=== PATIENT | male | born 1955 | race Caucasian/White ===

== ENCOUNTER 2019-03-13 08:30 | Inpatient (IN) | payer MEDICAID, OTHER, SELFPAY ==
[2019-03-13] VITALS (26 sets, daily range): BP systolic 96–137; BP diastolic 70–87; O2SAT 96
[~2019-03-13] VITALS: Ht 170.2 cm; Wt 60.9 kg
[2019-03-13] MEDS ORDERED: PRED20TA PO (08:36)
[2019-03-13] MEDS ORDERED: ALBU8.5H INH (08:37)
[2019-03-13] MEDS ORDERED: DOXY100T27 PO (08:37)
[2019-03-13 09:10] LABS: BASO % 0.1 % (0.0-1.0); EOS % 0.1 % (0.0-3.0); HEMATOCRIT 50.9 % (42.0-52.0); HEMOGLOBIN 16.2 g/dl (13.5-17.5); LYMPH # 1.4 10^3/uL (1.5-5.0); LYMPH % 9.6 % (24.0-44.0); MEAN CORPUSCULAR HEMOGLOBIN 32.3 pg (27.0-33.0); MEAN CORPUSCULAR HGB CONC 31.8 g/dl (32.0-36.5); MEAN CORPUSCULAR VOLUME 101.6 fl (80.0-96.0); MONO # 0.9 10^3/uL (0.0-0.8); MONO % 6.3 % (0.0-5.0); NEUTROPHILS # 12.3 10^3/uL (1.5-8.5); NEUTROPHILS % 83.5 % (36.0-66.0); PLATELET COUNT, AUTOMATED 139 10^3/uL (150-450); RED BLOOD COUNT 5.01 10^6/uL (4.30-6.10); WHITE BLOOD COUNT 14.7 10^3/uL (4.0-10.0)
--- NOTE | 2019-03-13 09:53 | REP ---
Clinical: Shortness of breath. Technique: Portable semiupright view. Comparison: None. Findings: Moderate/large right pleural effusion with underlying right lower lobe atelectasis. No further abnormality appreciated. No pneumothorax. Cardiomegaly cannot be excluded. Skeletal structures demonstrate degenerative changes and evidence for right rib fractures of indeterminate age. Impression: 1. Moderate/large right pleural effusion with underlying right lower lobe atelectasis. 2. Multiple nondisplaced right rib fractures of indeterminate age. Electronically Signed by Regino Canela MD 03/13/2019 09:46 A
[2019-03-13] MEDS ORDERED: diltiaZEM 125 MG in NS 100 ML IV SCH (10:30)
[2019-03-13 10:31] LABS: ALBUMIN 2.6 GM/DL (3.2-5.2); ALT/SGPT 143 U/L (12-78); BILIRUBIN,DIRECT 0.7 MG/DL (0.0-0.2); BILIRUBIN,TOTAL 1.6 MG/DL (0.2-1.0); BLOOD UREA NITROGEN 36 MG/DL (7-18); CALCIUM LEVEL 8.9 MG/DL (8.8-10.2); CARBON DIOXIDE LEVEL 25 MEQ/L (21-32); CHLORIDE LEVEL 102 MEQ/L (98-107); CK-MB VALUE MASS 4.7 NG/ML (<3.6); CPK CREATINE PHOSPHOKINASE 64 U/L (39-308); CREATININE FOR GFR 1.18 MG/DL (0.70-1.30); GLOMERULAR FILTRATION RATE > 60.0 (>49); GLUCOSE, FASTING 102 MG/DL (70-100); MB/CK RELATIVE INDEX 7.34 (< OR =4); NT-PRO BNP 7036 PG/ML (<125); POTASSIUM SERUM 4.3 MEQ/L (3.5-5.1); SODIUM LEVEL 141 MEQ/L (136-145); TOTAL PROTEIN 6.3 GM/DL (6.4-8.2); TROPONIN I 0.07 NG/ML (< 0.10)
[2019-03-13 10:52] LABS: INR 1.39; PARTIAL THROMBOPLASTIN TIME 28.1 SECONDS (25.0-38.4); PROTHROMBIN TIME 16.8 SECONDS (11.8-14.0)
[2019-03-13] MEDS ORDERED: ISOVUE-370 76% 100ML VIAL (Q9967) As Ordered ONE (11:36)
--- NOTE | 2019-03-13 12:20 | REP ---
Clinical: Shortness of breath and hemoptysis . Technique: Axial contrast enhanced images from the thoracic inlet to the upper abdomen using 75 ml Isovue 370 intravenous contrast material with multiplanar re-formations. Findings: Satisfactory enhancement of the pulmonary vasculature is achieved. Acute thrombus is identified in the left main pulmonary artery with extension into the left upper lobe and lingular pulmonary arteries. Thrombus is also suggested within the central right upper lobe pulmonary artery and within second order branches of the right lower lobe pulmonary artery. Large right pleural effusion is identified with near complete collapse to the right lower lobe, partial collapse to the right middle lobe, and atelectasis along with patchy infiltrates involving the right upper lobe. A small left pleural effusion is identified with subtle left basilar atelectasis. Cardiomegaly noted along with atherosclerotic changes to the thoracic aorta and coronary arteries. Impression: 1. Significant bilateral pulmonary emboli as detailed above. 2. Large right pleural effusion and small left pleural effusion along with elements of partial collapse, ground-glass infiltrates, and atelectasis. 3. Cardiomegaly. Electronically Signed by Regino Canela MD 03/13/2019 12:12 P
[2019-03-13] MEDS ORDERED: HEPARIN DRIP 25,000 UNITS in IV 1 EA IV SCH ×2 (12:35→19:43)
[2019-03-13] MEDS ORDERED: HEPARIN SOD (PORCINE) 5000 UNITS/ML VIAL IV ONE (12:45)
[2019-03-13] MEDS ORDERED: FUROSEMIDE 40 MG/4 ML VIAL (J1940) IV SCH (13:45)
[2019-03-13] MEDS ORDERED: MIDAZOLAM INJ 2 MG/2 ML VIAL (J2250) As Ordered ONE ×2 (13:52→13:53)
[2019-03-13] MEDS ORDERED: LIDOCAINE 1% MDV 20ML VIAL As Ordered ONE (13:53)
[2019-03-13] MEDS ORDERED: ACETAMINOPHEN TAB 650MG DOSE (2X325MG) PO PRN (14:00)
[2019-03-13] MEDS ORDERED: ONDANSETRON 4MG/2ML VIAL (J2405) IV PRN (14:00)
[2019-03-13] MEDS ORDERED: LEVALBUTEROL 1.25 MG/0.5 ML CONCENTRATE NEB NEB PRN (14:00)
[2019-03-13] MEDS: LEVALBUTEROL 1.25 MG/0.5 ML CONCENTRATE NEB NEB SCH ×2 (14:00→19:53)
[2019-03-13] MEDS ORDERED: NORCO, ANEXSIA 5/325MG TABLET (HYDROcodone/ACETAMINOPHEN) PO PRN (14:00)
[2019-03-13] MEDS ORDERED: BISACODYL 10 MG SUPP PR PRN (14:00)
[2019-03-13] MEDS ORDERED: PERCOCET 5MG/325MG TAB PO PRN (14:00)
[2019-03-13] MEDS: diltiaZEM 125 MG in NS 100 ML IV SCH ×2 (14:30→23:10)
[2019-03-13] MEDS ORDERED: MIDAZOLAM INJ 2 MG/2 ML VIAL (J2250) IV ONE (14:45)
[2019-03-13] MEDS ORDERED: LIDOCAINE 1% MDV 20ML VIAL SC ONE (14:45)
[2019-03-13 14:51] LABS: ABG BASE EXCESS -2.4 (-2.0-2.0); ABG HCO3 22.3 MEQ/L (22.0-26.0); ABG O2 SATURATION 98.2 % (95.0-99.0); ABG PARTIAL PRESSURE CO2 38.5 mmHg (35.0-45.0); ABG PARTIAL PRESSURE O2 118.8 mmHg (75.0-100.0); ABG STANDARD HCO3 22.5 MEQ/L (22.0-26.0); ABG TOTAL CO2 23.5 MEQ/L (23.0-31.0); ABG pH (ARTERIAL) 7.381 UNITS (7.350-7.450)
--- NOTE | 2019-03-13 14:58 | HPEPDOC ---
General Date of Admission Mar 13, 2019 at 13:33 Date of Service: Mar 13, 2019 Chief Complaint The patient is a 63-year-old male admitted with a reason for visit of Atrial Flutter With Rapid Ventricular Response. Source: Patient Exam Limitations: No limitations Associated Symptoms: Shortness of breath History of Present Illness Patient is 63 years old male without significant past medical history presented hospital with increased shortness of breath. Patient stated that in February he has been treated with doxycycline and prednisone for pneumonia. However for past few days has increased shortness of breath and has leg swelling. In emergency room patient was found to have on CTA significant bilateral pulmonary emboli, large right pleural effusion and small left pleural effusion along with elements of partial collapse, ground-glass infiltrates, atelectasis, cardiomegaly. CBC significant for leukocytosis of 14.7, BNP 7036, elevated transaminases, tachycardia and dyspnea. Diltiazem and heparin drip started in ER. Home Medications Scheduled PRN Albuterol Sulfate (Albuterol Sulfate Hfa) 8.5 Gm Hfa.aer.ad, 2 PUFF INH QID PRN for SOB/COUGH, (Reported) Allergies Coded Allergies: No Known Drug Allergies (Verified Allergy, Unknown, 03/13/19) Past Medical History Surgical History Appendectomy in childhood Family History Mother from breast cancer Social History * Smoker: current smoker Alcohol: heavy Drugs: denies A-FIB/CHADSVASC A-FIB History Current/History of A-Fib/PAF?: No Current PO Anticoag Therapy: No Review of Systems Constitutional: Reports: Weakness, Fatigue; Denies: Chills, Fever Eyes: Denies: Pain, Vision change ENT: Denies: Head Aches Skin: Denies: Rash, Lesions Pulmonary: Reports: Dyspnea Cardiovascular: Reports: Palpitations, Orthopnea, Edema Gastrointestinal: Denies: Nausea, Vomiting Genitourinary: Denies: Dysuria, Frequency Hematologic: Denies: Bruising, Bleeding Excessively Endocrine: Denies: Polydipsia, Polyphagia Musculoskeletal: Denies: Neck Pain, Back Pain Neurological: Denies: Weakness, Numbness Psych: Reports: Mood Normal Physical Examination General Exam: Positive: Alert, Cooperative Eye Exam: Positive: PERRLA ENT Exam: Positive: Atraumatic; Negative: Mucous membr. moist/pink (mucous membrane dry) Neck Exam: Positive: Supple, JVD Chest Exam: Positive: Rhonchi, Diminished Heart Exam: Positive: Tachycardic Telemetry: Positive: Tachycardia Abdomen Exam: Positive: Normal bowel sounds Extremity Exam: Positive: Clubbing; Negative: Cyanosis Skin Exam: Positive: Nl turgor and temperature Neuro Exam: Positive: Normal Gait, Strength at 5/5 X4 ext, Cranial Nerves 3-12 NL Psych Exam: Positive: Mental status NL Vital Signs Vital Signs Date Time Temp Pulse Resp B/P (MAP) Pulse Ox O2 Delivery O2 Flow Rate FiO2 03/13/19 13:44 156 20 98 Nasal Cannula 2.0 03/13/19 11:55 136/93 (107) 03/13/19 08:30 98.0 Laboratory Data Labs 24H Laboratory Tests 2 03/13/19 08:52: Immature Granulocyte % (Auto) 0.4, Neutrophils (%) (Auto) 83.5H, Lymphocytes (%) (Auto) 9.6L, Monocytes (%) (Auto) 6.3H, Eosinophils (%) (Auto) 0.1, Basophils (%) (Auto) 0.1, Neutrophils # (Auto) 12.3H, Lymphocytes # (Auto) 1.4L, Monocytes # (Auto) 0.9H, Eosinophils # (Auto) 0.0, Basophils # (Auto) 0.0, Nucleated Red Blood Cells % (auto) 0.0 03/13/19 09:38: Prothrombin Time 16.8H, Prothromb Time International Ratio 1.39, Activated Partial Thromboplast Time 28.1, Anion Gap 14, Glomerular Filtration Rate > 60.0, Calcium Level 8.9, Total Bilirubin 1.6H, Direct Bilirubin 0.7H, Aspartate Amino Transf (AST/SGOT) 157H, Alanine Aminotransferase (ALT/SGPT) 143H, Alkaline Phosphatase 133H, Total Creatine Kinase 64, Creatine Kinase MB 4.7H, Creatine Kinase MB Relative Index 7.34H, Troponin I 0.07, HU-Pbo-X-Type Natriuretic Peptide 7036H, Total Protein 6.3L, Albumin 2.6L, Albumin/Globulin Ratio 0.70L CBC/BMP Laboratory Tests 03/13/19 08:52 03/13/19 09:38 Assessment/Plan Patient is 63 years old male without significant past medical history presented hospital with increased shortness of breath. Patient stated that in February he has been treated with doxycycline and prednisone for pneumonia. However for past few days has increased shortness of breath and has leg swelling. In emergency room patient was found to have on CTA significant bilateral pulmonary emboli, large right pleural effusion and small left pleural effusion along with elements of partial collapse, ground-glass infiltrates, atelectasis, cardiomegaly. Problems (1) Sepsis Status: Acute Problem Text: Patient has leukocytosis, tachycardia and dyspnea Patient has recently had pneumonia On presentation he has large right pleural effusion and small left pleural effusion along with elements of partial collapse, ground-glass infiltrates, and atelectasis I started broad-spectrum antibiotics vancomycin and Zosyn Chest tube will be placed by Dr. Tran Blood culture, pleural fluid culture (2) Atrial flutter with rapid ventricular response Status: Acute Problem Text: Secondary to pulmonary emboli Diltiazem drip now ECHo Monitor troponins (3) Pulmonary embolism Status: Acute Problem Text: Unprovoked pulmonary emboli Heparin drip, will start Xarelto tomorrow There is concern for underlying malignancy We'll proceed with CT scan of abdomen and pelvis given history of active smoking (4) Alcohol abuse Status: Chronic Problem Text: [facility] protocol Social service on board Plan / VTE VTE Prophylaxis Ordered?: Yes JONAH ALFARO DO Mar 13, 2019 14:58
[2019-03-13] MEDS ORDERED: LORazepam 2 MG TAB PO PRN (15:00)
[2019-03-13] MEDS ORDERED: NS 1,000 ML IV SCH (15:00)
--- NOTE | 2019-03-13 15:26 | REP ---
CHEST, SINGLE VIEW: Single view of the chest is performed and compared to a prior exam the same day. There has been placement of a right chest tube inferiorly. There is significant improvement of right pleural effusion with mild residual. There is mild atelectasis/infiltrate in the right lower lung zone. There is no pneumothorax. The left lung remains clear. There is cardiomegaly with mild calcification of the thoracic aorta. Electronically Signed by Olman Vallejo MD 03/13/2019 04:00 P
[2019-03-13 15:28] LABS: PH BODY FLUID 7.697 UNITS (NOT ESTABLISHED); SOURCE, BODY FLUID pH PLEURAL
--- NOTE | 2019-03-13 15:40 | CR ---
DATE OF CONSULTATION: 03/13/2019 The patient is seen at the request of Dr. Caldera of the emergency room for a pleural effusion and bilateral pulmonary emboli with some shortness of breath. HISTORY OF PRESENT ILLNESS: The patient is a 63-year-old white male who started to notice increasing shortness of breath approximately 7 to 10 days ago. It has gradually come on. He says that for the last 2 days he has been very short of breath, hardly able to get up from the couch and use the bathroom. He has had orthopnea these last 2 days, having difficulty lying flat and waking up short of breath. He has noticed that his legs have been swelling over the last 3 days. He notes a cough that again started about 10 days ago but was not productive until about 2 days ago when he started to develop hemoptysis with uniform globs of blood being expectorated. He has no chest pain or chest pain discomfort. He has no fever, chills or sweats. He has no rigor. There is no difficulty swallowing and he states that he has been eating and certainly drinking. He drinks about a half to a pint of vodka a day. He also states that he has lost weight, although he does not know how much. PAST MEDICAL HISTORY: Does not see a primary care physician. He states that he has no other medical problems. PAST SURGERIES: He has had an appendectomy and two plates in his heels after a remote trauma. ALLERGIES: None. HABITS: Smokes one pack per day of Pall Mall. He has the above alcohol history of one half to one pink per day of vodka. No illicit drugs. TRAVEL HISTORY: He is unclear to me where he has actually traveled but nothing outside the [place]. I do not get a positive travel history to the [facility] or [facility]. EXPOSURES: No dogs, birds or cats at home. 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 He does not know if he has been exposed to asbestos. He is now retired. FAMILY HISTORY: Not pertinent to the acute situation. REVIEW OF SYSTEMS: CONSTITUTIONAL: See history of present illness. EYES: Wears glasses. Without diplopia. Without amaurosis fugax. Without prior jaundice. NOSE: Without epistaxis. MOUTH: Has his own teeth, many of which are missing. RESPIRATORY: See history of present illness. CARDIAC: Denies palpitations or tachycardia that he is aware of. Without prior myocardial infarctions. GASTROINTESTINAL: Without nausea, vomiting, diarrhea, constipation, melena, hematochezia or abdominal pain. GENITOURINARY: Without hematuria or dysuria. NEUROLOGIC: Without paresthesias, paralyses or prior seizures. Without prior CVA. ENDOCRINE: Without diabetes. Without thyroid disease. PSYCHIATRIC: Without pathological anxiety, psychosis or depression. PHYSICAL EXAMINATION: Well developed, cachectic, white male who is short of breath even talking. VITAL SIGNS: Temperature 98.0, heart rate 154 and in atrial flutter with a respiratory rate that is 22. Without the use of accessory muscles. He is 100% saturated on 2 liters nasal cannula. Blood pressure 136/93. HEAD: Normocephalic. EYES: Pupils are equal and reactive to light. Extraocular muscles are intact. Sclerae nonicteric. NOSE: Without deformity. MOUTH: Has his own teeth, many of which are missing. Mucous membranes are pink and moist. Lips and commissures without lesions. There is no thrush. NECK: Supple. There is no jugular venous distention (JVD). No subcutaneous emphysema. Trachea is midline. There are no carotid bruits. There are 2+ carotid upstrokes. There is no thyromegaly. LUNGS: Marked decreased breath sounds at the right base with E-to-A egophony. Left percussion note is full to the diaphragm. The lung sounds are diminished on the right side in the lower hemithorax. I hear some rhonchi on the left side. CARDIAC: Shows a tachycardia. I do not appreciate murmurs, clicks, gallops or rubs. I cannot feel his point of maximum impulse (PMI). S1, S2 are normal. ABDOMEN: Soft, nontender. Bowel sounds positive. There is no hepatosplenomegaly. No costovertebral angle tenderness. EXTREMITIES: 3 to 4+ pretibial edema. No calf tenderness. Skin is warm and dry but with some mottling of the knees. Fingers are clubbed. Fingers also have yellow staining consistent with cigarette use. NEUROLOGIC: Shows II through XII intact. Gross motor and gross sensation is intact. Gait is not tested. PSYCHIATRIC: Shows him to be awake and alert, oriented times three with appropriate mood and affect and conversational. INVESTIGATIONS: His white count is 14.7 with a hemoglobin and hematocrit of 16.2 and 50.9 with a platelet count of 139. Differential shows 83% neutrophils, 9% lymphocytes and 6% monocytes. There are no immature forms and no toxic granulations. His electrolytes are normal with a BUN and creatinine of 36 and 1.18 with a calcium of 8.9. AST and ALT are 157 and 143, respectively. Albumin is 2.6. His PT/INR are 16.8 and 1.39 with a PTT of 28 seconds, this is prior to starting heparin. Chest x-ray shows opacity in the right lower hemithorax with the meniscus consistent with a pleural effusion. His chest CT done with angiographic protocol shows multiple pulmonary emboli. Emboli are both on the right and left side with the right upper lobe being occluded and numerous clots in the left upper lobe lingula pleural vessels and in the left lower lobe. The right side also shows clot again at the right upper lobe and numerous peripheral clots in the right lower lobe. I also see a clot in the vena cava. The pleural effusion is confirmed with right lower lobe lung compression. There is an infiltrative process in the medial portion of the upper lobe in the apical segment. I cannot tell if this is a heterogenous tumor or even lung infarction with consolidation. His left adrenal is quite generous but looks to have normal configuration. I do not see his right adrenal clearly. The liver does not look to have any lesions. There is no pericardial effusion. I do not see appreciable mediastinal lymphadenopathy. IMPRESSION: 1. Bilateral pulmonary emboli. 2. Probable bilateral deep vein thromboses on the right and left side. 3. Atrial flutter with rapid ventricular response. 4. Pleural effusion. 5. Probable dehydration with increase in hematocrit and BUN. 6. Alcohol abuse. 7. Tobacco abuse. PLAN/DISCUSSION: I have discussed the case both with Dr. Caldera and later on with Dr. Diaz. I would recommend that we fully heparinize him now and put him on a heparin drip. We can convert that to Xarelto or Xarelto-like medication tomorrow. I will place a chest tube. I would IV hydrate him. I would also cover him with Serax for potential alcohol withdrawal. I will send the fluid off for all the requisite cytologies, hematologies, chemistries and bacteriologies. I suspect that there is probably about 1.5 to 2 liters in his chest just from the chest CT.
--- NOTE | 2019-03-13 15:42 | ECGEPIP ---
[facility] - ED Test Date: 2019-03-13 Pat Name: JANE BOONE Department: Room: - Gender: Male Government Affairs Fellow: sandra mathews : 1955 Requested By: CELINA Lucas Order Number: [id number] Reading MD: Myrtle Farias Measurements Intervals [place] Rate: 162 P: UT: 0 QRS: 109 QRSD: 90 T: -84 QT: 275 QTc: 452 Interpretive Statements PROBABLE ATRIAL FLUTTER WITH RAPID VENTRICULAR RESPONSE MARKED RIGHT AXIS DEVIATION POSSIBLE RIGHT VENTRICULAR CONDUCTION DELAY NONSPECIFIC ST & T-WAVE ABNORMALITY No prior Electronically Signed on 03-13-2019 15:42:04 EST by Myrtle Farias
[2019-03-13 15:48] LABS: AMYLASE, BODY FLUID 86 U/L (NOT ESTABLISHED); CHOLESTEROL, BODY FLUID < 50 MG/DL (NOT ESTABLISHED); LDH, BODY FLUID 303 U/L (NOT ESTABLISHED); SOURCE, BODY FLUID ALBUMIN PLEURAL; SOURCE, BODY FLUID AMYLASE PLEURAL; SOURCE, BODY FLUID CHOL PLEURAL; SOURCE, BODY FLUID GLUCOSE PLEURAL; SOURCE, BODY FLUID LDH PLEURAL; SOURCE, BODY FLUID TOT PROTEIN PLEURAL; SOURCE, BODY FLUID TRIG PLEURAL; TOTAL PROTEIN, BODY FLUID 2.2 G/DL (NOT ESTABLISHED); TRIGLYCERIDE, BODY FLUID 30 MG/DL (NOT ESTABLISHED)
[2019-03-13 15:49] LABS: LDH LACTATE DEHYDROGENASE 331 U/L (87-241)
[2019-03-13 15:56] LABS: MAGNESIUM LEVEL 1.8 MG/DL (1.8-2.4); TROPONIN I 0.08 NG/ML (< 0.10)
[2019-03-13 15:56] LABS: APPEARANCE, BODY FLUID HAZY (CLEAR); PLEURAL FL COLOR YELLOW (COLORLESS); SOURCE, BODY FLUID PLEURAL
--- NOTE | 2019-03-13 15:59 | REP ---
BILATERAL LOWER EXTREMITY DUPLEX DOPPLER VENOUS ULTRASOUND: Real-time compression and duplex Doppler interrogation of the bilateral lower extremity deep vein systems is performed. Non-occlusive thrombus is seen in the right profunda vein and in one of duplicated right femoral veins, as well as in the right popliteal vein. No thrombus is seen in either common femoral vein, nor in the left femoral vein or popliteal vein. IMPRESSION: Non-occlusive deep vein thrombosis in one of the duplicated right femoral veins and in the right popliteal vein. There is also nonocclusive thrombus in the right profunda vein. No deep vein thrombosis left lower extremity. Electronically Signed by Olman Vallejo MD 03/13/2019 04:01 P
[2019-03-13] MEDS ORDERED: THIAMINE 100 MG TAB PO ONE (16:00)
[2019-03-13 16:30] LABS: INFLUENZA A AMPLIFICATION NEGATIVE (NEGATIVE); INFLUENZA B AMPLIFICATION NEGATIVE (NEGATIVE)
[2019-03-13] MEDS: MULTIVITAMINS/MINERALS THERAP 1 TAB PO SCH (16:54)
[2019-03-13] MEDS: FOLIC ACID 1 MG TAB PO SCH (16:54)
[2019-03-13] MEDS: PIPERACILLIN/TAZOBACTAM SOD 3.375 GM in D5W MINI-BAG PLUS 50 ML IV SCH ×2 (16:55→21:19)
[2019-03-13] MEDS: D5W/0.9% SODIUM CHLORIDE 1,000 ML IV SCH (16:55)
[2019-03-13] MEDS ORDERED: VANCOMYCIN HCL 500 MG in D5W MINI-BAG PLUS 100 ML IV ONE (17:00)
[2019-03-13] MEDS ORDERED: VANCOMYCIN HCL 750 MG, VIAL MATE ADAPTER 1 EACH in D5W 250 ML IV ONE (18:00)
--- NOTE | 2019-03-13 19:21 | PHACANCOPD ---
PHARMACY VANCOMYCIN DOSING Pt Demographics Demographics Patient Age:63 , Weight:64.700 , Gender: male Adjusted Body Weight Date: 03/13/19, Adjusted Body Weight: [64.7] Kg Events Past 24 Hours Events Past 24 Hours: NO: Dialysis, Diuretic Therapy, Change in CrCl, Fever, Elevation in WBC, Pending Diagnostics, Pending Procedures, Other Vancomycin Vancomycin indication: SEPSIS Vancomycin Target Ranges: 15-20 mcg/ml Vancomycin Load Y/N: Yes Load Dose Date Time Vancomycin Load Dose: 1.25G Date: 03/13/19 Time:17:00 Vancomycin Dose Date: 03/13/19. Current Vancomycin Dose: [1G IV Q12H] Intermittent Dosing?: No Labs Labs Item Value Date Time White Blood Count 14.7 10^3/uL H 03/13/19 0852 Creatinine 1.18 MG/DL 03/13/19 0938 Neutrophils # (Auto) 12.3 10^3/uL H 03/13/19 0852 Micro Microbiology 03/13/19 Blood Culture, Received Pending 03/13/19 Gram Stain, Received Pending 03/13/19 Sputum Culture, Received Pending 03/13/19 Blood Culture, Received Pending 03/13/19 Acid Fast Stain, Received Pending 03/13/19 Mycobacterial Culture, Received Pending 03/13/19 Fungal Smear, Received Pending 03/13/19 Fungal Culture, Received Pending 03/13/19 Gram Stain, Received Pending 03/13/19 Body Fluid Culture, Received Pending 03/13/19 Anaerobic Culture, Received Pending Creatinine Clearance Date:03/13/19. Creatinine Clearance: [60ML/MIN]. Pending Labs MRSA PCR, VANCOMYCIN TROUGH 03/14/19 @16:00 Assessment and Plan Maintaining Current Dose?: Yes Reason for dose change: No Dose Change Pharmacist Note Pharmacist Note Date: 03/13/19. Pharmacist note: PT is a 63 year old male being treated for sepsis goal trough 15-20mcg/ml. The patient has not been treated with vancomycin [facility] at [facility] in the past. To achieve goal a 1.25g loading dose started 03/13/19 @17:00. Maintenance therapy will consist of 1g IV every 12 hours starting 03/14/19 @ 05:00. A trough is scheduled for 03/14/19 prior to the third dose. We will continue to monitor and adjust the dose as needed. ELISHA CROOKS PHARMACY Mar 13, 2019 19:21
[2019-03-13] MEDS: DOCUSATE SODIUM 100 MG CAP PO SCH (20:41)
[2019-03-13] MEDS: PERCOCET 5MG/325MG TAB PO PRN (20:42)
[2019-03-13] MEDS ORDERED: RIVAROXABAN 15 MG TAB (XARELTO) PO SCH (21:00)
[2019-03-13] MEDS: HEPARIN SOD (PORCINE) 5000 UNITS/ML VIAL IV PRN (21:19)
[2019-03-14] VITALS (39 sets, daily range): BP systolic 107–134; BP diastolic 68–96
[2019-03-14] MEDS: LEVALBUTEROL 1.25 MG/0.5 ML CONCENTRATE NEB NEB SCH ×4 (01:26→19:37)
[2019-03-14] MEDS: VANCOMYCIN HCL 1,000 MG, VIAL MATE ADAPTER 1 EACH in D5W 250 ML IV SCH ×2 (04:22→19:57)
[2019-03-14] MEDS: D5W/0.9% SODIUM CHLORIDE 1,000 ML IV SCH (04:22)
[2019-03-14 05:26] LABS: HEMATOCRIT 46.6 % (42.0-52.0); MEAN CORPUSCULAR HEMOGLOBIN 31.6 pg (27.0-33.0); MEAN CORPUSCULAR HGB CONC 32.2 g/dl (32.0-36.5); MEAN CORPUSCULAR VOLUME 98.3 fl (80.0-96.0); PLATELET COUNT, AUTOMATED 152 10^3/uL (150-450); RED BLOOD COUNT 4.74 10^6/uL (4.30-6.10); WHITE BLOOD COUNT 14.1 10^3/uL (4.0-10.0)
[2019-03-14 05:41] LABS: ABG BASE EXCESS 1.9 (-2.0-2.0); ABG HCO3 25.8 MEQ/L (22.0-26.0); ABG O2 SATURATION 95.6 % (95.0-99.0); ABG PARTIAL PRESSURE O2 82.5 mmHg (75.0-100.0); ABG STANDARD HCO3 26.1 MEQ/L (22.0-26.0); ABG TOTAL CO2 26.9 MEQ/L (23.0-31.0); ABG pH (ARTERIAL) 7.449 UNITS (7.350-7.450)
[2019-03-14 05:48] LABS: BLOOD UREA NITROGEN 33 MG/DL (7-18); CALCIUM LEVEL 7.9 MG/DL (8.8-10.2); CARBON DIOXIDE LEVEL 24 MEQ/L (21-32); CHLORIDE LEVEL 103 MEQ/L (98-107); CREATININE FOR GFR 0.97 MG/DL (0.70-1.30); GLOMERULAR FILTRATION RATE > 60.0 (>49); GLUCOSE, FASTING 176 MG/DL (70-100); MAGNESIUM LEVEL 1.9 MG/DL (1.8-2.4); POTASSIUM SERUM 4.1 MEQ/L (3.5-5.1); SODIUM LEVEL 137 MEQ/L (136-145)
[2019-03-14] MEDS: PIPERACILLIN/TAZOBACTAM SOD 3.375 GM in D5W MINI-BAG PLUS 50 ML IV SCH ×3 (05:53→22:07)
[2019-03-14] MEDS: diltiaZEM 125 MG in NS 100 ML IV SCH ×2 (05:53→13:56)
[2019-03-14] MEDS ORDERED: AMIODARONE HCL 150 MG in IV 1 EA IV ONE (08:45)
[2019-03-14] MEDS: MOM 30ML SUSPENSION UDC PO SCH (09:00)
[2019-03-14] MEDS: DOCUSATE SODIUM 100 MG CAP PO SCH ×2 (09:00→20:16)
[2019-03-14] MEDS: MULTIVITAMINS/MINERALS THERAP 1 TAB PO SCH (10:30)
[2019-03-14] MEDS: FOLIC ACID 1 MG TAB PO SCH (10:31)
[2019-03-14] MEDS: THIAMINE 100 MG TAB PO SCH ×2 (10:31→20:15)
[2019-03-14] MEDS: PANTOPRAZOLE 40MG TAB (PROTONIX) PO SCH (10:31)
--- NOTE | 2019-03-14 10:51 | CR ---
DATE OF CONSULTATION: 03/14/2019 ATTENDING PHYSICIAN: Dr. Diaz REASON FOR CONSULTATION: Abnormal CAT scan. HISTORY OF PRESENT ILLNESS: Mr. Gee is a 63-year-old gentleman with long-standing tobacco and alcohol use history. He denies any occupational or environmental exposures. He says that he has been short of breath for months but worse the last several days. He developed some hemoptysis with it. He denied any chest pain. He was seen in the emergency room and was found to have a large right pleural effusion, as well as a question of a right middle lobe abnormality. He also had atrial arrhythmia. He has also been found to have bilateral pulmonary emboli, as well as deep vein thromboses, especially of the right lower extremity. The patient denies any other new complaints. He did not have any fever at home. Described his hemoptysis as dark, bloody material, smaller than the size of a thumb nail. ALLERGIES: Listed as none. MEDICATIONS AT HOME: - albuterol as needed PAST MEDICAL HISTORY: Significant only for appendectomy. FAMILY HISTORY: Mother had breast cancer. SOCIAL HISTORY: At least a pack a day smoker for much of his adult life. He said that he drinks at least a pint of vodka every 2 or 3 days. REVIEW OF SYSTEMS: As per history of present illness. Otherwise: CONSTITUTIONAL: Negative for any fever or chills. HEENT: Unremarkable for double or blurred vision. PULMONARY: As per history of present illness. CARDIAC: Significant for his recent atrial fibrillation and flutter. GASTROINTESTINAL: Unremarkable for any recent nausea or vomiting. GENITOURINARY: Unremarkable for dysuria or urgency. NEUROLOGIC: Unremarkable for seizure or strokes. ENDOCRINE: Unremarkable for diabetes or thyroid disease. HEMATOLOGIC: Unremarkable for bleeding or bruising. DERMATOLOGIC: Significant for lower extremity edema. MUSCULOSKELETAL: Significant for chronic arthralgias and myalgias. ALLERGIES: Unremarkable. PSYCHIATRIC: Unremarkable. PHYSICAL EXAMINATION: This is a pleasant gentleman lying in bed here in the intensive care unit (ICU). Temperature 98.3, blood pressure 110 systolic. Heart rate 140 to 150, clearly atrial flutter. HEENT: Otherwise, normocephalic, atraumatic. Pupils do react. NECK: Supple. Trachea is in the midline. CHEST: Bilateral rhonchi. Expansion symmetric. He has a right chest tube in place. Maybe a faintest of rub on the right. CARDIAC: Tachycardic. Generally irregular. Peripheral pulses are markedly diminished. There is at least 2 to 3+ pitting lower extremity edema bilaterally. ABDOMEN: Soft, nontender. Active bowel sounds. EXTREMITIES: Right foot to be cool, although not pale, beginning at about the ankle. I am unable to get a Doppler pulse. The patient denies pain. Left foot is warm but edematous. There is no cyanosis or clubbing currently. NEUROLOGIC: Awake, alert and appropriate. PSYCHIATRIC: Normal mood and affect. LABORATORY DATA: White blood cell count 14.1, hemoglobin 15.0, platelet count 152,000. Sodium 137, potassium 4.1, chloride 103, CO2 of 24, BUN 33, creatinine 0.97, glucose 176. Lactic acid yesterday 2.1. Blood gas done this morning on nasal cannula oxygen at an unknown flow shows pH of 7.449, pCO2 of 38, pO2 of 82.5, saturation 95.6%. Last PTT 110.4. CT scan as outlined above. I cannot disagree with the dictated report. IMPRESSION: 1. Abnormal CT scan with pulmonary emboli, pleural effusion and nonspecific abnormality. 2. Hemoptysis on the basis of the above. 3. Long-standing tobacco abuse. 4. Lower extremity edema with deep vein thrombosis (DVT). 5. DVT. 6. Cool right foot. 7. Long-standing and continuing tobacco and alcohol use. At this point, he has had a tube thoracostomy and his right pleural effusion is drained. We will reimage his chest. The abnormality of his lingula does not look classic for an infarct and is generally non solid. Certainly may be atelectatic versus inflammatory. I await the outcome of that. We are attempting to contact the primary service, as his right foot is cool and although there is no pain I am concerned in that regard. He is fully anticoagulated. Vascular surgery is currently unavailable and I am told Dr. Diaz has a call out to the interventional radiologist. If we are unable to contact them, then he may warrant a transfer to a higher level of care. In the interim, his atrial fibrillation/flutter is being managed by cardiology and the primary service. We await the repeat of his imaging. He needs to be continually fully anticoagulated for his clot burden and certainly from a pulmonary standpoint, if there are any specific abnormalities, we can interrupt that anticoagulation for at least 3 to 4 weeks. He will be followed while he is here in the hospital. Further recommendations will be made in the progress record as new information becomes available. MONI
[2019-03-14] MEDS: PERCOCET 5MG/325MG TAB PO PRN (11:03)
--- NOTE | 2019-03-14 11:15 | REP ---
Clinical: Follow up pleural effusion. Comparison: 03/13/2019. Findings: Small residual right pleural effusion is suggested but may be underestimated by radiographic evaluation. New area of opacity involving the right mid to lower lung zone suggests parenchymal disease/pneumonia. Left hemithorax is relatively stable although small pleural reaction cannot be excluded. No pneumothorax. Mediastinum and cardiac silhouette are stable. Right chest tube again noted. No pneumothorax. Old right rib fractures unchanged. Impression: Examination suggests small residual right pleural effusion and possible small left pleural reaction as well as significant new right lower lobe parenchymal disease. Electronically Signed by Regino Canela MD 03/14/2019 11:06 A
[2019-03-14] MEDS ORDERED: ISOVUE-370 76% 100ML VIAL (Q9967) As Ordered ONE (12:20)
[2019-03-14] MEDS ORDERED: AMIODARONE HCL 150 MG in IV 1 EA IV STA (12:39)
--- NOTE | 2019-03-14 13:39 | IPNPDOC ---
Text Note Date of Service The patient was seen on 03/14/19. NOTE Subjective: patient complains of chest pain around chest tube, also she stated that he feels cold in his right leg. Patient denied fever, chills, diarrhea or dysuria. Also patient noticed palpitations. General: NAD HEENT: PERRLA, EOMI, no JVD Lungs: Bilateral scattered rhonchi and rales. Chest tube in place, serosanguineous discharge CV: S1-S2, tachycardic rate 150 Abdomen: nontender, nondistended Extremities: +3 L tibial edema, +4 tibial edema on the right side, no pulse on the right dorsalis pedis and posterior tibialis Neuro: Nonfocal, cranial nerves from 2-12 intact BILATERAL LOWER EXTREMITY DUPLEX DOPPLER VENOUS ULTRASOUND: Real-time compression and duplex Doppler interrogation of the bilateral lower extremity deep vein systems is performed. Non-occlusive thrombus is seen in the right profunda vein and in one of duplicated right femoral veins, as well as in the right popliteal vein. No thrombus is seen in either common femoral vein, nor in the left femoral vein or popliteal vein. IMPRESSION: Non-occlusive deep vein thrombosis in one of the duplicated right femoral veins and in the right popliteal vein. There is also nonocclusive thrombus in the right profunda vein. No deep vein thrombosis left lower extremity. Patient is 63 years old male without significant past medical history presented hospital with increased shortness of breath. Patient stated that in February he has been treated with doxycycline and prednisone for pneumonia. However for past few days has increased shortness of breath and has leg swelling. In emergency room patient was found to have on CTA significant bilateral pulmonary emboli, large right pleural effusion and small left pleural effusion along with elements of partial collapse, ground-glass infiltrates, atelectasis, cardiomegaly. (1) Sepsis Patient has leukocytosis, tachycardia and dyspnea Patient has recently had pneumonia On presentation he has large right pleural effusion and small left pleural effus ion along with elements of partial collapse, ground-glass infiltrates, and atelectasis I started broad-spectrum antibiotics vancomycin and Zosyn Chest tube placed by Dr. Tran Blood culture, pleural fluid culture pending (2) Atrial flutter with rapid ventricular response Most likely secondary to pulmonary emboli Diltiazem drip now ECHo pending Appreciate/agree with sheriff's officer consult (3) Pulmonary embolism Unprovoked pulmonary emboli Heparin drip for now There is concern for underlying malignancy, patient lost 20 pounds for past year We'll proceed with CT scan of abdomen and pelvis given history of active smoking Appreciate/agree with grain spouter consult (4) Alcohol abuse Status: Chronic Problem Text: CIWA protocol Social service on board Right distal leg arterial insufficiency No dorsalis pedis pulse, no posterior tibialis pulse palpated, limb cold on touch I talked to interventional radiologist Dr. Skinner, she recommended CT of abdomen and pelvis with run off Unfortunately we don't have vascular surgeon coverage in the hospital today. Patient might need to be transferred to [facility]. DVT Continue anticoagulation with heparin IV VS,Fishbone, I+O VS, Fishbone, I+O Laboratory Tests 03/14/19 04:42 Vital Signs Date Time Temp Pulse Resp B/P (MAP) Pulse Ox O2 Delivery O2 Flow Rate FiO2 03/14/19 12:58 20 Nasal Cannula 3.0 03/14/19 07:00 151 119/89 (99) 03/14/19 06:30 94 03/14/19 04:00 98.3 I&O- Last 24 Hours up to 6 AM 03/14/19 06:00 Intake Total 2488.1 ml Output Total 1685 ml Balance 803.1 ml JONAH ALFARO DO Mar 14, 2019 13:39
--- NOTE | 2019-03-14 14:04 | REP ---
CT ANGIOGRAM ABDOMINAL AORTA AND BILATERAL LOWER EXTREMITIES: CT angiogram of abdominal aorta and bilateral lower extremities performed following the intravenous administration of 100 mL of Isovue 370. Sagittal and coronal reconstruction images as well as MIP reconstruction images are performed. Visualized lung bases demonstrate consolidative infiltrate in the right middle and lower lobes with mild infiltrate/atelectasis in the left lower lobe. There is a small left effusion. There is a small right pneumothorax with right chest tube more superiorly on today's chest radiograph. Liver, spleen, adrenals, pancreas, and kidneys appear unremarkable. No adenopathy, free air or free fluid is seen. Bowel appears unremarkable. Urinary bladder appears unremarkable. Abdominal aorta demonstrates moderate diffuse atherosclerotic calcification. There is moderately severe stenosis of the celiac artery. The superior mesenteric artery demonstrates moderate calcific plaque at its origin with moderate stenosis. There is mild narrowing at the origin of the main left renal artery. There is moderate diffuse narrowing of the mid to distal right renal artery. Extremely thin inferior mesenteric artery is visualized. The right common iliac artery demonstrates moderate diffuse plaquing. There is mild to moderate stenosis proximally. There is mild to moderate stenosis at the origin of the right internal iliac artery. The right external iliac artery demonstrates mild diffuse narrowing as does the right common femoral artery. The distal end of the right common femoral artery is severely stenotic. There is occlusion at the origin of the right superficial femoral artery. Small collateral vessels are seen of the profunda artery. There is reconstitution of the distal right superficial femoral artery. There is moderate diffuse narrowing of the right popliteal artery. There are extremely thin trifurcation arteries in the proximal right calf with the contrast opacification of these arteries fading in the mid calf due to slow flow of contrast. On the left there is relatively mild narrowing of the common iliac artery, internal iliac and external iliac arteries. There is mild diffuse narrowing of the left common femoral artery. Left superficial femoral artery demonstrates mild narrowing at its origin. There is mild diffuse narrowing of the left superficial femoral artery. There is moderate stenosis from calcific plaque focally in the mid left SFA with moderate diffuse narrowing of the distal left SFA. The left popliteal artery is moderately diffusely narrowed. Trifurcation arteries are faintly visualized proximally as on the right side. Again in the mid calf region contrast opacification fades and the arteries are not opacified likely due to slow flow of contrast. There is metallic hardware incidentally noted in the calcanei bilaterally. There are degenerative changes of the spine. IMPRESSION: Right middle and lower lobe consolidative infiltrates. Small right pneumothorax due to recent right chest tube insertion. Small amount of left lower lobe atelectasis/infiltrate and small left effusion. 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 Moderate stenosis at the origin of the superior mesenteric artery. Small caliber inferior mesenteric artery noted. There is moderate diffuse narrowing of the main right renal artery. Right common iliac artery demonstrates mild to moderate stenosis proximally. Severe stenosis distal right common femoral artery with occlusion of the right superficial femoral artery at its origin. Distal right superficial femoral artery is reconstituted by small collateral profunda vessels. Moderate stenosis mid left SFA with moderate narrowing distal left SFA and popliteal artery. Small caliber calf arteries are seen bilaterally in the proximal calf, but contrast fades and there is no opacification at the mid calf level most consistent with slow flow of contrast. Electronically Signed by Olman Vallejo MD 03/14/2019 04:48 P
--- NOTE | 2019-03-14 14:45 | RO ---
DATE OF PROCEDURE: 03/13/2019 PREPROCEDURE DIAGNOSIS: Right pleural effusion. POSTPROCEDURE DIAGNOSIS: Right pleural effusion. PROCEDURE: Insertion of a right lateral chest tube. SURGEON: Dr. Dima Tran. RECRUITING SCHEDULER: ANESTHESIA: Moderate sedation 3 mg Versed. FINDINGS: Chest was eluded of 1600 mL of serous fluid. This was sent for requisite cytologies, hematologies, bacteriologies and chemistries. DESCRIPTION OF PROCEDURE: Under satisfactory moderate sedation achieved with 3 mg of Versed, patient was prepped and draped in the usual sterile fashion. The skin, subcutaneous tissue, muscle and pleural was infiltrated with 1% lidocaine in and around the 6th intercostal space. An incision was made and a tunnel created in the chest without difficulty. A #24 chest tube was placed and secured to the chest wall with a #2 Tevdek suture. This was connected to a Pleur-evac. Patient tolerated the procedure well and a chest x-ray is pending.
[2019-03-14] MEDS ORDERED: fentaNYL 100 MCG/2 ML INJECTION (J3010) As Ordered ONE (14:46)
[2019-03-14] MEDS ORDERED: MIDAZOLAM INJ 2 MG/2 ML VIAL (J2250) As Ordered ONE (14:46)
[2019-03-14] MEDS ORDERED: LIDOCAINE 1% MDV 20ML VIAL As Ordered ONE (14:47)
[2019-03-14] MEDS ORDERED: ISOVUE-300 61% 50ML VIAL (Q9967) As Ordered ONE (14:47)
--- NOTE | 2019-03-14 15:31 | IRINPTCON ---
[facility] IR Inpatient Consultation IR Inpatient Consultation DATE: Mar 14, 2019 REASON FOR CONSULTATION/CHIEF COMPLAINT: Cold right leg. HISTORY OF PRESENT ILLNESS: 63-year-old male smoker with history of coronary artery disease presents with shortness of breath. Found to have bilateral PEs and DVTs on further workup. Incidentally also has 4 days of right leg coldness and numbness. Denies similar symptoms before. Denies leg pain. No prior ampu tations. No intermittent claudication or rest pain. No prior history of cold leg. No fevers or chills. No trauma. ALLERGIES: Please see below. HOME MEDICATIONS: Please see below. PAST MEDICAL HISTORY: Heart disease Hypertension Hyperlipidemia PAST SURGICAL HISTORY: Appendectomy Right leg hardware FAMILY HISTORY: Noncontributory. SOCIAL HISTORY: Smoker. Drinks alcohol. REVIEW OF SYSTEMS: Otherwise negative PHYSICAL EXAMINATION: VITAL SIGNS: Please see below. GENERAL APPEARANCE: Able to speak in sentences without shortness of breath. HEENT: No scleral icterus. RESPIRATORY: Normal breathing at rest. CARDIOVASCULAR: Tachycardic. ABDOMEN: [Non-distended]. EXTREMITIES: Right lower extremity; cool to touch. Shiny. Edema to knees. Sensation 5 out of 5 motor 5 out of 5. DP/PT -. No gangrene. No ulcers. Left lower extremity; no significant edema. DP/PT +. Warm to touch. Sensation and motor 5 out of 5. No gangrene. No ulcers. NEUROLOGICAL: Alert and oriented. PSYCHIATRIC: Appropriate to circumstance. LABORATORY DATA: 03/14/2019 hemoglobin 15 hematocrit 46.6 WBC 14.1 platelets 152 sodium 137 potassium 4.1 BUN 33 creatinine 0.97 Imaging: I personally reviewed the same day CT angiogram with runoff. The right superficial femoral artery is occluded. There is reconstitution of the distal popliteal artery. ASSESSMENT/PLAN: 63 male smoker with coronary artery disease presents with 4 days acute right cold leg. Patient requires angiogram and thrombolysis. No contraindication to thrombolysis. We will proceed with this procedure. I spent 30 minutes in consultation with the patient. Thank you for this referral. Allergies Coded Allergies: No Known Drug Allergies (Verified Allergy, Unknown, 03/13/19) Home Medications Scheduled PRN Albuterol Sulfate (Albuterol Sulfate Hfa), 2 PUFF INH QID PRN for SOB/COUGH, (Reported) Discontinued Medications Doxycycline Monohydrate (Doxycycline Monohydrate), 100 MG PO BID, (Reported) Discontinued Reason: Pt states not taking Prednisone (Prednisone), 1 TAB PO TID, (Reported) Discontinued Reason: Pt states not taking VS, I&O, 24H, Fishbone Vital Signs/I&O Vital Signs Date Time Temp Pulse Resp B/P (MAP) Pulse Ox O2 Delivery O2 Flow Rate FiO2 03/14/19 12:58 20 Nasal Cannula 3.0 03/14/19 07:00 151 119/89 (99) 03/14/19 06:30 94 03/14/19 04:00 98.3 I&O- Last 24 Hours up to 6 AM 03/14/19 06:00 Intake Total 2488.1 ml Output Total 1685 ml Balance 803.1 ml Laboratory Data 24H LABS Laboratory Tests 2 03/13/19 17:59: Troponin I 0.11#H 03/13/19 18:05: 03/13/19 19:25: Lactic Acid Followup at 4 Hours 2.1*H 03/13/19 20:03: Activated Partial Thromboplast Time 62.5H 03/13/19 22:55: Troponin I 0.06# 03/14/19 02:46: Activated Partial Thromboplast Time 110.4H 03/14/19 04:42: Nucleated Red Blood Cells % (auto) 0.2H, Anion Gap 10, Glomerular Filtration Rate > 60.0, Calcium Level 7.9L, Magnesium Level 1.9 03/14/19 05:30: Blood Gas Bicarbonate Standard 26.1H, Arterial Blood pH 7.449, Arterial Blood Partial Pressure CO2 38.0, Arterial Blood Partial Pressure O2 82.5, Arterial Blood Total CO2 26.9, Arterial Blood HCO3 25.8, Arterial Blood Base Excess 1.9, Arterial Blood Oxygen Saturation 95.6 03/14/19 10:16: Activated Partial Thromboplast Time 68.8H CBC/BMP Laboratory Tests 03/14/19 04:42 Microbiology Microbiology 03/13/19 Blood Culture, Received Pending 03/13/19 Gram Stain - Final, Resulted 03/13/19 Sputum Culture, Resulted Pending 03/13/19 Blood Culture - Preliminary, Resulted No growth after 24 hours . All specim... 03/13/19 Acid Fast Stain, Received Pending 03/13/19 Mycobacterial Culture, Received Pending 03/13/19 Fungal Smear, Received Pending 03/13/19 Fungal Culture, Received Pending 03/13/19 Gram Stain - Final, Resulted 03/13/19 Body Fluid Culture, Resulted Pending 03/13/19 Anaerobic Culture, Resulted Pending JOHANNY SINGLETARY MD Mar 14, 2019 15:30
--- NOTE | 2019-03-14 17:19 | POST-OPPD ---
Postoperative Procedure Note Date Of Procedure: Mar 14, 2019 Time Of Procedure: 17:17 PREOPERATIVE DIAGNOSIS: SFA thrombosis POSTOPERATIVE DIAGNOSIS: same FINDINGS: SFA thrombosis PROCEDURE: SFA recanalized and infusion catheter placed for overnight TPA thrombolysis. SURGEON: lisa ANESTHESIA: mod sed ESTIMATED BLOOD LOSS: < 5 ml COMPLICATIONS: none POSTOPERATIVE CONDITION: stable JOHANNY SINGLETARY MD Mar 14, 2019 17:19
[2019-03-14] MEDS ORDERED: HEPARIN 25,000 UNITS/250 ML D5W BAG (100 UNITS/ML) As Ordered ONE (17:53)
[2019-03-14] MEDS: HEPARIN DRIP 25,000 UNITS in IV 1 EA XX SCH (18:00)
[2019-03-14] MEDS: ALTEPLASE RECOMBINANT 10 MG in NS 990 ML IV SCH (18:00)
--- NOTE | 2019-03-14 19:00 | IPN ---
DATE: 03/14/2019 Mr. Gee is breathing much better today. Nursing staff has informed me that he lost pulses last night and has now gone down for a CT angiogram of his lower legs. His vital signs still show a severe tachycardia of around 150. It looks as though this is A flutter, A-Fib. His respiratory rate is 20 to 24 without the use of accessory muscles. He is 94% saturated on 3 liters nasal cannula and his blood pressure is ranging between 119/89 to 130/86. His T-max is 98.8. Intake and output over the past 24 hours has been recorded as 1428 in and 810 out for a positivity of 600 mL. He has put of 460 mL from his chest tube up until midnight and 525 since midnight. It is serous. Weight today is 65.2 kg compared to 64.7 kg yesterday. PHYSICAL EXAMINATION: On physical examination, his lungs show rhonchi and coarse breath sounds on the right side along with scattered rhonchi on the left side. Percussion note is full to the diaphragm. I hear much more pronounced coarse rales in the right hemithorax. I do not hear bronchophony in the right lower thorax. Cardiac exam shows the tachycardia without murmurs, clicks, gallops or rubs. I cannot feel his point of maximal impulse (PMI). S1 and S2 are normal. Abdomen is soft and nontender. Bowel sounds are positive, but hypoactive. There is no hepatomegaly. No costovertebral angle (CVA) tenderness. Extremities show 1+ edema on the left and trace on the right. I do not feel any palpable pulses on the right nor the left though the nurses tell me there is a Doppler pulse on the left. There is no differential swelling in the upper extremities. Skin is warm, dry and perfused without cyanosis or mottling including that of the nail beds and the knees. Neck is supple. There is no jugular venous distention. No subcutaneous emphysema. Trachea is midline. Mouth shows his mucous membranes to be pink and moist. Lips and commissures are without lesions. There is no thrush. Eyes show his pupils to be equal and reactive. Extraocular muscles intact. Sclera anicteric. Neuro shows II through XII intact. Gross motor and gross sensation intact. Gait is not tested. Psychiatric shows him to be awake, alert and oriented times three with appropriate mood, affect and conversational. His white count today is 14.1 with hemoglobin and hematocrit of 15.0 and 46.6 respectively with a platelet count of 152. Chemistries show normal electrolytes with a BUN and creatinine of 33 and 0.97, magnesium of 1.9 and a calcium of 7.9. Blood gases this morning show a pH of 7.44 with a pCO2 of 38 and a pO2 of 82. Base excess of 1.9. PTT is 68 seconds today. He remains on heparin. His pleural fluid has come back with a pH of 7.69 with a LDH of 303 with a corresponding serum LDH of 331 and a total protein in the fluid of 2.2 with a corresponding serum total protein of 6.3. He has 2100 white cells, 56% of which are mononuclear lymphocytes and 43% are neutrophils. This looks to be slightly exudative, but lymphocytic. Final pathology is pending. There were no organisms seen on gram stain. His chest x-ray today shows significant worsening of his right lower lobe infiltrate. Compared to yesterday's film, it is markedly different. It could be post expansion pulmonary edema to that right lower lobe. I would be doubtful if a pneumonia would make this acute of a change. Review of his CT of his chest yesterday shows large amount of right lower lobe completely compressed underneath the effusion. Considering the amount of compression, post expansion pulmonary edema is certainly plausible. Also noted yesterday was a right upper lobe infiltrative process with alveolar air and air bronchograms looking more infiltrative than masslike. This could represent a pulmonary infarct especially considering the clot burden to his right upper lobe. IMPRESSION: 1. Bilateral pulmonary emboli. 2. Deep vein thrombosis right side. 3. Atrial flutter. Rapid ventricular response. Now being treated with amiodarone. 4. Pleural effusion. 5. Probable dehydration with increasing hematocrit and BUN. Now resolved. 6. Alcohol abuse. 7. Prior tobacco abuse. 8. Acute occlusion of right lower extremity arteries with loss of pulse. 9. Infiltrative process right lower lobe, probable post expansion pulmonary edema. PLAN AND DISCUSSION: He has put out too much out the chest tube for me to remove it. He will be going down later on today for interventional radiology to open up his lower extremity vessels. It would not be unreasonable to do a hypercoagulable workup on him. It should be noted that his chest CT does not show a lucent defect in the right atrium at the tricuspid valve or at the mitral valve. I highly doubt that the acute occlusion could be due to a myxoma, however, we ought to obtain an echocardiogram.
[2019-03-14] MEDS: METOPROLOL TART 25 MG TABLET PO SCH (19:45)
--- NOTE | 2019-03-14 20:48 | CR ---
DATE OF CONSULTATION: 03/14/2019 CONSULTATION REPORT FOR: Dr. Diaz REASON FOR CONSULTATION: Atrial flutter with rapid ventricular response (RVR). HISTORY OF PRESENT ILLNESS: Mr. Gee is previously unknown to me. He is a 63-year old man who did not have much of a prior medical care. He apparently was recently treated on outpatient basis for tentative bronchitis but then presented to our facility yesterday after approximately three or four weeks of gradually worsening dyspnea that in the last 3-4 days was reaching the point of orthopnea, he had paroxysmal nocturnal dyspnea (PND) and hemoptysis. There were no fever or chills. The evaluation in emergency room revealed evidence for extensive bilateral pulmonary emboli. There was large right-sided pleural effusion and he had deep vein thrombosis (DVT) of the right lower extremity. He was also found to have atrial flutter with a 2:1 conduction and ventricular rate [address] Tran placed a right-sided chest tube and drained large amount of fluids. The analysis of the fluid is consistent with exudate. He was started on IV heparin. He was also started on Cardizem drip and there was a hope that his heart rate will slow down, but because there was no effect on his heart rate even with 15 mcg per kilogram per minute. Dr. Diaz, asked me this morning to see the patient. At bedside, the patient tells me that he is not feeling well but admits that he is feeling a little bit better than yesterday. He still gets short of breath with barely any activity. Denies any chest pain. Denies any sensation of palpitations. He has no idea how long the atrial flutter has been present. He has noted peripheral edema a few days ago. Even though he has no peripheral pulses detected by Doppler he denied any discomfort in his feet at bedside. PAST MEDICAL HISTORY: Essentially negative. The patient has not seen a physician on a regular basis. No outpatient medications even though he reportedly recently had a course of prednisone and doxycycline. PAST SURGICAL HISTORY: Positive for appendectomy and history of feet surgery for trauma. SOCIAL HISTORY: The patient is retired. He is a heavy smoker and heavy drinker. He drinks vodka on a daily basis, very large amount. FAMILY HISTORY: Mother apparently had breast cancer. No further details available. REVIEW OF SYSTEMS: He denies any prior cardiac problems to the best of his knowledge. I was not able to find out what is his baseline physical activity, but from the little bit I was able to gain from the patient, it seems to be that he has been very inactive. He denies any recent fever, chills, nausea, vomiting, or diarrhea. He denies any history of bleeding problems. He denies chest pain, syncope, near syncope. Peripheral edema and hemoptysis have been present for a few days only. PHYSICAL EXAMINATION: Mr. Gee is a 63-year-old man who appears to be much older than his calendar age. This morning, blood pressure was 120/86, heart rate 150 beats per minute, and he is saturating 98% on two liters of oxygen by nasal cannula. There is a chest tube draining from his right chest. He is alert and oriented. His jugular venous pulse (JVP) is high, at least 4 or 5 cm above clavicle. Lungs reveal rhonchi bilaterally. I do not appreciate any wheezing or fine rales. Heart examination reveals regular tachycardia without appreciable murmur or gallop. Abdomen is soft, somewhat cachectic looking man. I do not appreciate evidence for ascites or hepatosplenomegaly. Extremities: About 2+ edema to his knees. No trophic defects of his feet. I do not appreciate any palpable pulse peripherally and I do not appreciate any distinct pulse popliteally, very faint on the left. Neurologically, he appears weak and chronically ill. LABORATORY DATA: As of this morning, WBC count was 14.1, hemoglobin 15, hematocrit 46, and platelet count 152,000. Basic metabolic panel this morning showed sodium 137, potassium 4.1, BUN 33, creatinine 0.9, glucose 176, magnesium 1.9. He already had several troponins, one of which was marginally elevated at 0.11. Liver function tests are quite high with AST 158, ALT 143, N-terminal pro BNP was 7000, albumin 2.6. Chest x-ray and CT angiography of the chest reveal evidence for bilateral pulmonary emboli. There is initially very large right-sided pleural effusion with compression atelectasis of right lower lobe and nonspecific infiltrate in upper lobe. ECG reveals presence of atrial flutter with 2:1 conduction. An echocardiogram that was interpreted by myself revealed left ventricular hypertrophy with severe left ventricular systolic dysfunction and ejection around 20%, moderate aortic and mitral insufficiency and elevated central venous pressure and approximately moderate pulmonary hypertension. ASSESSMENT AND PLAN: Mr. Gee is a 63-year-old man who has a multitude of medical problems and presents critically ill. There is no doubt in my mind that the leading diagnosis is pulmonary embolism. I suspect that this is not acute and it actually occurred probably even several weeks ago. I believe that the pleural effusion and atrial flutter are most likely consequences. I agree with the current management of numerous involved physicians. I think the connelly is to provide consistent anticoagulation for pulmonary emboli. I would be inclined not to switch him to oral anticoagulant at least for several days due to the extensive nature of his embolism. I was asked to see him for atrial flutter. I do believe that it will be very challenging to slow him down because concomitant left ventricular systolic dysfunction. Because of that, I am going to discontinue Cardizem which is generally not a good choice in people with systolic dysfunction. I will start him on oral metoprolol. At the time of my dictation, he already received 300 mg of amiodarone which did not have appreciable effect on his heart rate. Consequently, we will try tentatively to pursue slow loading with amiodarone on a daily basis and may add digoxin if needed. I have to admit that his tachycardia is remarkably well-tolerated. Again because of the degree of left ventricular (LV) dysfunction, I suspect that there is a component of tachycardia-induced cardiomyopathy even though in the differential diagnosis certainly is ischemic cardiomyopathy and alcohol-induced cardiomyopathy even though I consider those less likely. I plan to follow the patient with you. He certainly is critically ill and the prognosis is uncertain, both acutely and chronically. MONI
--- NOTE | 2019-03-14 21:46 | ECHO ---
DATE OF PROCEDURE: 03/13/2019 REFERRING PHYSICIAN: Dr. Diaz INDICATION: Congestive heart failure. Height 170 cm, weight 65 kg DIMENSIONS: IVS: 1.3 LV: 4.2 LVPW: 1.3 LA: 3.9 Aorta: 3.1 Left atrial volume index: 39 IVC: 1.9 FINDINGS: The study is of good technical quality. The patient is in atrial flutter with 2:1 conduction and ventricular rate 150 beats per minute. Left ventricle is of normal size. Mild left ventricular hypertrophy is noted. Global hypokinesis is present, estimated LVEF approximately 20%. Right ventricle does not appear grossly dilated. Both atria are at least moderately enlarged. Aortic valve is mildly sclerotic. Visualization was limited. There are also degenerative abnormalities of mitral valves and mitral annular calcifications and mild thickening of mitral leaflets. Tricuspid and pulmonic valves appear grossly normal. Trace pericardial effusion is noted. Inferior vena cava is upper limits of normal size and has poor collapse with respiration indicative of elevated central venous pressure. Aortic root appears normal. Abdominal aorta also appears normal. Aortic arch was not well seen. Doppler interrogation reveals no significant aortic stenosis and approximately moderate insufficiency. There is also moderate mitral insufficiency. Mild tricuspid insufficiency is present. Calculated pulmonary artery pressure at minimum is in high 30s, which would correspond to mild pulmonary hypertension. Evaluation of diastolic function is inconclusive due to underlying atrial flutter. CONCLUSIONS: 1. Study is of good technical quality, the patient is in atrial flutter with ventricular rate 150 beats per minute. 2. Normal left ventricular (LV) size with mild left ventricular hypertrophy (LVH) and severe left ventricular systolic dysfunction, estimated left ventricular ejection fraction (LVEF) 20%. 3. Moderate aortic insufficiency. 4. Moderate mitral insufficiency. 5. High central venous pressure. 6. At least mild pulmonary hypertension. 7. Trace pericardial effusion. COMMENT: Subacute bacterial endocarditis (SBE) prophylaxis is not recommended. 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
[2019-03-14] MEDS ORDERED: DIGOXIN INJ 0.5 MG/2 ML AMP (J1160) IV STA (22:20)
[2019-03-15] VITALS (21 sets, daily range): BP systolic 85–135; BP diastolic 51–97; O2SAT 100
[2019-03-15 00:34] LABS: HEMATOCRIT 45.1 % (42.0-52.0); HEMOGLOBIN 14.5 g/dl (13.5-17.5)
[2019-03-15] MEDS: VANCOMYCIN HCL 1,000 MG, VIAL MATE ADAPTER 1 EACH in D5W 250 ML IV SCH ×3 (00:40→21:44)
[2019-03-15] MEDS: METOPROLOL TART 25 MG TABLET PO SCH ×5 (00:40→23:03)
[2019-03-15 00:49] LABS: INR 1.5; PROTHROMBIN TIME 17.8 SECONDS (11.8-14.0)
[2019-03-15] MEDS: LEVALBUTEROL 1.25 MG/0.5 ML CONCENTRATE NEB NEB SCH ×4 (01:10→19:59)
[2019-03-15 06:25] LABS: BASO % 0.2 % (0.0-1.0); EOS % 0.1 % (0.0-3.0); HEMATOCRIT 41.7 % (42.0-52.0); HEMOGLOBIN 13.8 g/dl (13.5-17.5); LYMPH # 1.5 10^3/uL (1.5-5.0); LYMPH % 8.7 % (24.0-44.0); MEAN CORPUSCULAR HEMOGLOBIN 31.9 pg (27.0-33.0); MEAN CORPUSCULAR HGB CONC 33.1 g/dl (32.0-36.5); MEAN CORPUSCULAR VOLUME 96.5 fl (80.0-96.0); MONO % 5.8 % (0.0-5.0); NEUTROPHILS % 84.6 % (36.0-66.0); PLATELET COUNT, AUTOMATED 121 10^3/uL (150-450); RED BLOOD COUNT 4.32 10^6/uL (4.30-6.10); WHITE BLOOD COUNT 17.7 10^3/uL (4.0-10.0)
[2019-03-15] MEDS: DIGOXIN INJ 0.5 MG/2 ML AMP (J1160) IV SCH ×2 (06:29→13:49)
[2019-03-15] MEDS: PIPERACILLIN/TAZOBACTAM SOD 3.375 GM in D5W MINI-BAG PLUS 50 ML IV SCH ×3 (06:30→21:01)
[2019-03-15 06:38] LABS: INR 1.46; PROTHROMBIN TIME 17.5 SECONDS (11.8-14.0)
[2019-03-15 06:54] LABS: BLOOD UREA NITROGEN 34 MG/DL (7-18); CALCIUM LEVEL 7.4 MG/DL (8.8-10.2); CARBON DIOXIDE LEVEL 26 MEQ/L (21-32); CHLORIDE LEVEL 103 MEQ/L (98-107); CREATININE FOR GFR 1.14 MG/DL (0.70-1.30); GLOMERULAR FILTRATION RATE > 60.0 (>49); GLUCOSE, FASTING 96 MG/DL (70-100); POTASSIUM SERUM 4.2 MEQ/L (3.5-5.1); SODIUM LEVEL 137 MEQ/L (136-145)
--- NOTE | 2019-03-15 08:52 | REP ---
Single view chest: 03/15/2019. Indication: Pleural effusion. Comparison: Yesterday. Findings: The right lower lobe is better aerated compared to yesterday. Right-sided chest tube is present. No pleural effusion is detected. There is no evidence of pneumothorax. The left lung is clear. Right-sided rib fractures are redemonstrated. Impression: Improved aeration of the right lower lobe. Right-sided chest tube without pneumothorax. Electronically Signed by Ajith Morales DO 03/15/2019 08:44 A
[2019-03-15] MEDS ORDERED: LIDOCAINE 1% MDV 20ML VIAL As Ordered ONE ×3 (09:02→15:15)
[2019-03-15] MEDS ORDERED: ISOVUE-300 61% 50ML VIAL (Q9967) As Ordered ONE ×2 (09:02→14:30)
--- NOTE | 2019-03-15 09:22 | IPN ---
DATE OF SERVICE: 03/15/2019 Mr. Gee's condition overnight improved a little. He tells me that he feels less short of breath and also the pain in his lower extremities has diminished and his heart rate has improved as well. He remains in atrial flutter. For most of the night, he remained with 2:1 conduction and heart rate in the 130s, but then towards morning he started slowing down and when I saw him his heart rate was between 100 and 115 beats per minute. He is afebrile. His fluid balance yesterday was recorded as positive 400 mL and his weight this morning is recorded as 66.9 kg. He is alert and oriented and appropriate. His jugular venous pulse (JVP) is elevated, but does not seem to be grossly elevated. Lungs are reasonably clear on the left, there is a chest tube on the right. Heart exam reveals irregular tachycardia. I still do not appreciate any obvious murmur or gallop. Abdomen is soft. It is difficult to assess the size of the liver and spleen. There is a catheter infusing in his right groin infusing heparin. Peripheral pulses are detectable by Doppler on both lower extremities. Swelling is still present. Neurologically, there appears to be generalized weakness, but otherwise he is intact. LABORATORIES: Hemoglobin 13.3, hematocrit 41 and platelet count 121,000. WBC count 17.7. Basic metabolic panel is normal. ASSESSMENT AND PLAN: Mr. Gee is a 63-year-old man who has a long history of heavy alcohol use and smoking and no medical care. He presented with numerous medical issues that included deep vein thrombosis (DVT)/massive pulmonary embolism (PE), a right pleural effusion, atrial flutter with rapid ventricular response, peripheral vascular disease, and cardiomyopathy. I was involved because of atrial flutter. He has underlying severe left ventricle systolic dysfunction which I suspect is due to either alcohol or more likely tachycardia induced cardiomyopathy. He also has significant mitral regurgitation (MR) and aortic insufficiency (AI). The first goal is to accomplish better rate control. I switched him from Cardizem to metoprolol last night and added digoxin later on. His heart rate is getting much better. He received only half a mg of digoxin so far, so I think that we will see further improvement also as he will get additional doses of metoprolol. I do not believe he is grossly volume over loaded and at this point I would not recommend to introduce diuretics, but I think we can slowly start working on it tomorrow. With a very extensive pulmonary embolism, he is probably significantly preload dependent. He is chronically anticoagulated and will have to remain so. Otherwise, I do not have any new recommendations to his management. He certainly remains critically ill, but looks better than yesterday. MONI
[2019-03-15] MEDS: DOCUSATE SODIUM 100 MG CAP PO SCH ×2 (10:55→20:08)
[2019-03-15] MEDS: PANTOPRAZOLE 40MG TAB (PROTONIX) PO SCH (10:55)
[2019-03-15] MEDS: THIAMINE 100 MG TAB PO SCH ×2 (10:55→20:08)
[2019-03-15] MEDS: FOLIC ACID 1 MG TAB PO SCH (10:55)
[2019-03-15] MEDS: MOM 30ML SUSPENSION UDC PO SCH (10:55)
[2019-03-15] MEDS: MULTIVITAMINS/MINERALS THERAP 1 TAB PO SCH (10:55)
--- NOTE | 2019-03-15 11:50 | IPNPDOC ---
Text Note Date of Service The patient was seen on 03/15/19. NOTE Subjective: patient complains of moderate chest pain around chest tube, he continues to feel cold in his right leg. Patient denied fever, chills, diarrhea or dysuria. Also patient noticed palpitations. General: NAD HEENT: PERRLA, EOMI, no JVD Lungs: Bilateral scattered rhonchi and rales. Chest tube in place, serosanguineous discharge CV: S1-S2, tachycardic rate 150 Abdomen: nontender, nondistended Extremities: +3 L tibial edema, +4 tibial edema on the right side, no pulse on the right dorsalis pedis and posterior tibialis Neuro: Nonfocal, cranial nerves from 2-[address] ANGIOGRAM ABDOMINAL AORTA AND BILATERAL LOWER EXTREMITIES: CT angiogram of abdominal aorta and bilateral lower extremities performed following the intravenous administration of 100 mL of Isovue 370. Sagittal and coronal reconstruction images as well as MIP reconstruction images are perfor med. Visualized lung bases demonstrate consolidative infiltrate in the right middle and lower lobes with mild infiltrate/atelectasis in the left lower lobe. There is a small left effusion. There is a small right pneumothorax with right chest tube more superiorly on today's chest radiograph. Liver, spleen, adrenals, pancreas, and kidneys appear unremarkable. No adenopathy, free air or free fluid is seen. Bowel appears unremarkable. Urinary bladder appears unremarkable. Abdominal aorta demonstrates moderate diffuse atherosclerotic calcification. There is moderately severe stenosis of the celiac artery. The superior mesenteric artery demonstrates moderate calcific plaque at its origin with moderate stenosis. There is mild narrowing at the origin of the main left renal artery. There is moderate diffuse narrowing of the mid to distal right renal artery. Extremely thin inferior mesenteric artery is visualized. The right common iliac artery demonstrates moderate diffuse plaquing. There is mild to moderate stenosis proximally. There is mild to moderate stenosis at the origin of the right internal iliac artery. The right external iliac artery demonstrates mild diffuse narrowing as does the right common femoral artery. The distal end of the right common femoral artery is severely stenotic. There is occlusion at the origin of the right superficial femoral artery. Small collateral vessels are seen of the profunda artery. There is reconstitution of the distal right superficial femoral artery. There is moderate diffuse narrowing of the right popliteal artery. There are extremely thin trifurcation arteries in the proximal right calf with the contrast opacification of these arteries fading in the mid calf due to slow flow of contrast. On the left there is relatively mild narrowing of the common iliac artery, internal iliac and external iliac arteries. There is mild diffuse narrowing of the left common femoral artery. Left superficial femoral artery demonstrates mild narrowing at its origin. There is mild diffuse narrowing of the left superficial femoral artery. There is moderate stenosis from calcific plaque focally in the mid left SFA with moderate diffuse narrowing of the distal left SFA. The left popliteal artery is moderately diffusely narrowed. Trifurcation arteries are faintly visualized proximally as on the right side. Again in the mid calf region contrast opacification fades and the arteries are not opacified likely due to slow flow of contrast. There is metallic hardware incidentally noted in the calcanei bilaterally. There are degenerative changes of the spine. IMPRESSION: Right middle and lower lobe consolidative infiltrates. Small right pneumothorax due to recent right chest tube insertion. Small amount of left lower lobe atelectasis/infiltrate and small left effusion. 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 Moderate stenosis at the origin of the superior mesenteric artery. Small caliber inferior mesenteric artery noted. There is moderate diffuse narrowing of the main right renal artery. Right common iliac artery demonstrates mild to moderate stenosis proximally. Severe stenosis distal right common femoral artery with occlusion of the right superficial femoral artery at its origin. Distal right superficial femoral artery is reconstituted by small collateral profunda vessels. Moderate stenosis mid left SFA with moderate narrowing distal left SFA and popliteal artery. Sma ll caliber calf arteries are seen bilaterally in the proximal calf, but contrast fades and there is no opacification at the mid calf level most consistent with slow flow of contrast. Patient is 63 years old male without significant past medical history presented hospital with increased shortness of breath. Patient stated that in February he has been treated with doxycycline and prednisone for pneumonia. However for past few days has increased shortness of breath and has leg swelling. In emergency room patient was found to have on CTA significant bilateral pulmonary emboli, large right pleural effusion and small left pleural effusion along with elements of partial collapse, ground-glass infiltrates, atelectasis, cardiomegaly. Pt was found to have right common iliac artery demonstrates mild to moderate stenosis proximally. Severe stenosis distal right common femoral artery with occlusion of the right superficial femoral artery at its origin. Distal right superficial femoral artery is reconstituted by small collateral profunda vessels. (1) Sepsis Patient has leukocytosis, tachycardia and dyspnea Patient has recently had pneumonia On presentation he has large right pleural effusion and small left pleural effusion along with elements of partial collapse, ground-glass infiltrates, and atelectasis I started broad-spectrum antibiotics vancomycin and Zosyn Chest tube placed by Dr. Tran Blood culture, pleural fluid culture pending (2) Atrial flutter with rapid ventricular response Most likely secondary to pulmonary emboli Patient currently on the metoprolol by mouth and digoxin Heart rate improved to [address] Roman follows him (3) Pulmonary embolism Unprovoked pulmonary emboli Heparin drip for now There is concern for underlying malignancy, patient lost 20 pounds for past year (4) Alcohol abuse Status: Chronic Problem Text: [facility] protocol Social service on board Right distal leg arterial insufficiency No dorsalis pedis pulse, no posterior tibialis pulse palpated, limb cold on touch Dr. Skinner will proceed with thrombolysis today DVT Unprovoked That is suspicious for malignancy Continue anticoagulation with heparin IV Exudative effusion Pleural fluid analysis positive for exudate most likely secondary to PE however there is possibility for malignancy Await cytology Continue broad-spectrum antibiotics VS,Fishbone, I+O VS, Fishbone, I+O Laboratory Tests 03/15/19 00:01 03/15/19 06:05 Vital Signs Date Time Temp Pulse Resp B/P (MAP) Pulse Ox O2 Delivery O2 Flow Rate FiO2 03/15/19 09:44 93 16 100 Nasal Cannula 2 03/15/19 08:00 98.0 119/78 (92) I&O- Last 24 Hours up to 6 AM 03/15/19 05:59 Intake Total 2720 ml Output Total 1685 ml Balance 1035 ml JONAH ALFARO DO Mar 15, 2019 11:50
[2019-03-15 12:54] LABS: INR 1.46; PROTHROMBIN TIME 17.5 SECONDS (11.8-14.0)
[2019-03-15 13:14] LABS: HEMATOCRIT 40.9 % (42.0-52.0); HEMOGLOBIN 13.3 g/dl (13.5-17.5)
[2019-03-15] MEDS: ALTEPLASE RECOMBINANT 10 MG in NS 990 ML IV SCH (13:14)
--- NOTE | 2019-03-15 14:21 | POST-OPPD ---
Postoperative Procedure Note Date Of Procedure: Mar 15, 2019 Time Of Procedure: 14:19 PREOPERATIVE DIAGNOSIS: right SFA thrombosis POSTOPERATIVE DIAGNOSIS: same FINDINGS: partial thrombolysis proximal SFA. mid and distal still thrombosed. PROCEDURE: arteriography. unifuse exchange, further TPA infusion needed 24 hours. SURGEON: ilsa ANESTHESIA: none ESTIMATED BLOOD LOSS: < 5 ml COMPLICATIONS: none POSTOPERATIVE CONDITION: stable JOHANNY SINGLETARY MD Mar 15, 2019 14:21
--- NOTE | 2019-03-15 14:29 | IPN ---
DATE: 03/15/2019 Mr. Gee has undergone a revascularization of his right lower extremity with interventional radiology and he is now on tPA. He is breathing easily and is comfortable at rest in bed. His vital signs show a T-max of 98.0, with a heart rate that ranges between 92 and 62 now in a sinus rhythm, a respiratory rate that is constant at 16, who is 100% saturated on 2 liters nasal cannula and whose blood pressure is ranging between 100/71 to 119/78. His intake and output over the past 24 hours has been recorded as 2210 in and 1785 out for a positivity of 425 mL. He has put out 1185 mL from the chest tube however. Chest tube output looks serous. Weight today is 66.9 kg compared to 65.2 kg yesterday and 64.7 on admission. He has put out a total of 600 mL in urine. On physical examination, his left lung shows normal vesicular sounds. His right lung shows rales and rhonchi. I cannot sit him up because of his tPA status, so I cannot listen to his back, but laterally the lung findings are as above. I cannot percuss him because of his inability to sit up secondary to his tPA and interventional radiology instructions. Cardiac Exam: Without murmurs, clicks, gallops or rubs. S1 and S2 are normal. I cannot feel his PMI. Abdomen is tympanitic and distended with hypoactive bowel sounds. I do not detect hepatomegaly beneath his distention. Extremities show 2 and 3+ pretibial edema respectively on the right and left. He has Dopplerable pulses now on both sides, according to the nursing staff. There is no differential swelling of the upper extremities. His skin is warm, dry and perfused without cyanosis or mottling, including that of the nail beds and knees. Neck is supple. There is no jugular venous distention. No subcutaneous emphysema. Trachea is midline. Mouth shows his mucous membranes to be pink and moist. Lips and commissures without lesions or thrush. Eyes show his pupils to be equal and reactive. Extraocular muscles intact. Sclerae anicteric. Neuro shows II through XII intact along with gross motor and gross sensation intact. Gait is not tested. Psychiatric shows him to be awake, alert and oriented times three with appropriate mood and affect and conversational. His white count today is 17.7, up from 14.1 yesterday. Hemoglobin and hematocrit are 12.8 and 41.7, down from 15.0 and 46.6 secondary to hemodilution. Platelet count is 121 and stable. Differential shows 84% neutrophils, 8% lymphocytes, 5% monocytes. There are no immature forms and no toxic granulations. His electrolytes are normal with a BUN and creatinine of 34 and 1.14. Calcium is 7.4 with a magnesium of 2.0. His PTT this morning was 96 seconds. Vancomycin level on 03/14/2019 was 10.6. I discussed his pleural fluid yesterday, looking mildly exudative and chronic with predominance of mononuclear cells, although fairly equal in distribution. Pathology is back. It shows no malignancy. His chest x-ray today is improved over yesterday. It still shows the left sided infiltrate, which is much better. It is confined to the lower lobe and it looks for all the world like post expansion pulmonary edema as it appeared 12 hours after the chest tube insertion and is now rapidly clearing. Costophrenic angles are sharp. I do not see that an echocardiogram has been reported back and neither do I see that has been ordered and I will do such. I am quite interested in his valve status and probable pulmonary hypertension along with making sure that he does not have a pericardial effusion, although his heart does not have a globular shape on chest x-ray. IMPRESSION: 1. Bilateral pulmonary emboli. 2. Deep vein thrombosis right side. 3. Atrial flutter with rapid ventricular response, now controlled. 4. Pleural effusion, continuing. 5. Prior alcohol abuse. 7. Prior tobacco abuse. 8. Acute occlusion of right lower extremity arteries with loss of pulse, now resolved with interventional radiology. 9. Post expansion pulmonary edema right lower lobe. PLAN AND DISCUSSION: He has put an extraordinary amount of fluid out his chest tube. I suppose it could also be from the inflammatory response of the pulmonary emboli and the post expansion pulmonary edema. Considering his ins and outs are nearly equal yesterday and the day before, I would not diurese him. The chest tube output will eventually resolve itself. I will take his chest tube off suction today.
[2019-03-15] MEDS ORDERED: HEPARIN 25,000 UNITS/250 ML D5W BAG (100 UNITS/ML) As Ordered ONE (15:03)
--- NOTE | 2019-03-15 15:59 | IPN ---
DATE: 03/15/2019 SUBJECTIVE: The patient was seen and examined at bedside this morning. Yesterday, he remained diaphoretic in atrial flutter. He has been seen by Dr. Roman of cardiology who had changed his Cardizem to metoprolol. The patient remained under great rate control since that time. Additionally, the patient was found to have a right-sided cold limb yesterday and has received an angiogram, and subsequently was diagnosed with superficial femoral arterial occlusion (SFA) thrombus and was taken for a catheter-directed thrombolysis. This morning the patient was taken again as he continues to not have any palpable detectable pulses on Doppler. He was seen in angio suite and had his catheter advanced further down. Today, the patient denied any increased shortness of breath. He denies any chest pain. He continues to have a chest tube on the right, which is currently draining approximately 1 liter over the past 24 hours. OBJECTIVE: VITAL SIGNS: Heart rate 93. Respiratory rate 16. Pulse oximetry 100% on 2 liters nasal cannula. GENERAL: The patient is awake, alert and oriented. He does not appear in any acute distress. He is lying comfortably in bed. He is conversant. CARDIOVASCULAR: The patient has an irregularly irregular rhythm with a slightly tachycardic rate. There are no clicks, rubs or murmurs auscultated. PULMONARY: The patient has rhonchi and coarse breath sounds on the right as well as a chest tube with serosanguineous drainage. He has coarse breath sounds on the left as well. He has good respiratory effort. There are no wheezes or rales. He has symmetric chest expansion. ABDOMINAL: The patient's abdomen is soft. It is nontender. It is nondistended. There is no normoactive bowel sounds throughout. EXTREMITIES: There is trace bilateral pitting edema. The patient has palpable pulses on the left. There are no palpable pulses on the right dorsalis pedis or posterior tibial. He has no pulses per Doppler as well. NEUROLOGICAL: No focal neurological deficits. PSYCHIATRIC: Mood and affect appear appropriate for situation. LABORATORY DATA: Chemistry: Sodium 137, potassium 4.2, chloride 103, CO2 26, BUN 34, creatinine 1.14, fasting glucose 96. Calcium 7.4. Magnesium 2.0. Hematology: White blood cells 17.7, hemoglobin 13.8, hematocrit 41.7, platelet count 121. INR 1.46. Pleural fluid cytology and pathology are currently pending. IMAGING: Chest x-ray showing right-sided chest tube without pneumothorax, however, possible right-sided infiltrate. ASSESSMENT AND PLAN: 1. Pleural effusion. The patient has pleural effusion, currently has a chest tube on the right with drainage. Will not clamp this tube at this time as it continues to have a large amount of output. The effusion possibly differentials include parapneumonic effusion secondary to infection or inflammatory process. The patient also has bilateral pulmonary embolism for which could result in the effusions. Additionally, liver etiology is less likely although the patient does have an elevated total bilirubin. For the time being the patient will have chest tube in place. Will consider clamping once the output decreases. The patient's albumin is approximately 3.6, which is on the lower side. Would suggest continuing feedings between his procedures to facilitate better nutrition. 2. Bilateral pulmonary embolism. The patient is currently on heparin. Will continue. He would benefit from a hypercoagulable workup. However, he has already been started on heparin. Additionally he has received tissue plasminogen activator (tPA). Therefore, a hypercoagulable workup would be not be accurate. 3. Superficial femoral arterial occlusion thrombosis. The patient presented with a right-sided cold extremity. He had received the angiogram, which demonstrated thrombosis of the superficial femoral artery. He was seen by Dr. Layton, who performed catheter-directed thrombolysis with tPA. The patient continued to have nonpalpable pulses. He was taken this morning for additional procedure. 4. Atrial flutter with rapid ventricular response (RVR). The patient had presented with atrial flutter with RVR. This is likely secondary to pulmonary embolism. He has been seen by cardiology. Originally he was placed on a Cardizem drip with inadequate rate control. He was changed to metoprolol. He is currently rate controlled. He is anticoagulated as well on heparin currently. The patient had received an echocardiogram. He has severe ventricular systolic dysfunction with an ejection fraction of 20%. ADDENDUM: ICharles, did an independent history and physical on Earl Boyd, . Mr. Gee is a 63-year-old male with pleural effusion, probable pneumonia, bilateral pulmonary embolism and arterial thrombus. At this point in time, chest tube is putting are too much fluid for it to be removed. Therefore, will continue draining today and reassess tomorrow in evaluation for possible clamping. I agree with the plan as outlined by the resident above. Differential pleural fluid includes parapneumonic effusion from infection from pulmonary embolism and from liver disease amongst a multitude of other possibilities including malignancy. Cytology is pending. Will continue to monitor the patient. Addendum dictated: 03/15/2019 1050 Charles Hatfield DO Addendum transcribed: 03/15/2019 1056 светлана MONTENEGRO
[2019-03-15 16:54] LABS: HEMATOCRIT 42.4 % (42.0-52.0); HEMOGLOBIN 13.5 g/dl (13.5-17.5)
[2019-03-15 17:17] LABS: INR 1.47; PROTHROMBIN TIME 17.6 SECONDS (11.8-14.0)
[2019-03-15] MEDS: HEPARIN DRIP 25,000 UNITS in IV 1 EA XX SCH (17:39)
[2019-03-15] MEDS ORDERED: VANCOMYCIN HCL 1,000 MG, VIAL MATE ADAPTER 1 EACH in D5W 250 ML IV SCH (18:00)
[2019-03-15] MEDS ORDERED: AMIODARONE HCL 150 MG in IV 1 EA IV STA ×4 (18:55→22:12)
[2019-03-15] MEDS: PERCOCET 5MG/325MG TAB PO PRN (21:34)
[2019-03-15] MEDS ORDERED: DIGOXIN INJ 0.5 MG/2 ML AMP (J1160) IV STA (23:28)
[2019-03-15] MEDS ORDERED: METOPROLOL TART 25 MG TABLET PO ONE (23:30)
[2019-03-16] VITALS (11 sets, daily range): BP systolic 107–148; BP diastolic 56–98
[2019-03-16 00:12] LABS: HEMOGLOBIN 13.8 g/dl (13.5-17.5)
[2019-03-16 00:17] LABS: INR 1.4; PROTHROMBIN TIME 16.9 SECONDS (11.8-14.0)
[2019-03-16] MEDS: LEVALBUTEROL 1.25 MG/0.5 ML CONCENTRATE NEB NEB SCH ×4 (01:49→20:00)
[2019-03-16 04:49] LABS: BASO % 0.1 % (0.0-1.0); EOS # 0.1 10^3/uL (0.0-0.5); EOS % 0.4 % (0.0-3.0); HEMOGLOBIN 12.8 g/dl (13.5-17.5); LYMPH # 1.1 10^3/uL (1.5-5.0); LYMPH % 7.6 % (24.0-44.0); MEAN CORPUSCULAR HEMOGLOBIN 32.6 pg (27.0-33.0); MEAN CORPUSCULAR HGB CONC 32.8 g/dl (32.0-36.5); MEAN CORPUSCULAR VOLUME 99.2 fl (80.0-96.0); MONO # 0.8 10^3/uL (0.0-0.8); MONO % 5.5 % (0.0-5.0); NEUTROPHILS # 12.3 10^3/uL (1.5-8.5); NEUTROPHILS % 85.9 % (36.0-66.0); PLATELET COUNT, AUTOMATED 105 10^3/uL (150-450); RED BLOOD COUNT 3.93 10^6/uL (4.30-6.10); WHITE BLOOD COUNT 14.3 10^3/uL (4.0-10.0)
[2019-03-16 05:01] LABS: INR 1.36; PROTHROMBIN TIME 16.5 SECONDS (11.8-14.0)
[2019-03-16 05:08] LABS: BLOOD UREA NITROGEN 28 MG/DL (7-18); CALCIUM LEVEL 7.5 MG/DL (8.8-10.2); CARBON DIOXIDE LEVEL 28 MEQ/L (21-32); CHLORIDE LEVEL 103 MEQ/L (98-107); CPK CREATINE PHOSPHOKINASE 92 U/L (39-308); CREATININE FOR GFR 0.82 MG/DL (0.70-1.30); GLOMERULAR FILTRATION RATE > 60.0 (>49); GLUCOSE, FASTING 95 MG/DL (70-100); MAGNESIUM LEVEL 1.8 MG/DL (1.8-2.4); POTASSIUM SERUM 3.8 MEQ/L (3.5-5.1); SODIUM LEVEL 136 MEQ/L (136-145)
[2019-03-16 05:12] LABS: PARTIAL THROMBOPLASTIN TIME 176.1 SECONDS (25.0-38.4)
[2019-03-16] MEDS: METOPROLOL TART 25 MG TABLET PO SCH ×2 (05:27→12:13)
[2019-03-16] MEDS: PIPERACILLIN/TAZOBACTAM SOD 3.375 GM in D5W MINI-BAG PLUS 50 ML IV SCH ×3 (05:27→21:15)
[2019-03-16] MEDS ORDERED: MIDAZOLAM INJ 2 MG/2 ML VIAL (J2250) As Ordered ONE (05:56)
[2019-03-16] MEDS ORDERED: fentaNYL 100 MCG/2 ML INJECTION (J3010) As Ordered ONE (05:56)
[2019-03-16] MEDS ORDERED: diphenhydrAMINE INJ 50MG/ML VIAL (J1200) As Ordered ONE (05:57)
[2019-03-16] MEDS ORDERED: ISOVUE-300 61% 50ML VIAL (Q9967) As Ordered ONE ×2 (05:57→08:14)
[2019-03-16] MEDS ORDERED: LIDOCAINE 1% MDV 20ML VIAL As Ordered ONE (05:57)
[2019-03-16] MEDS ORDERED: NITROGLYCERIN IN D5W 25MG/250ML (100MCG/ML) As Ordered ONE (07:22)
[2019-03-16] MEDS ORDERED: POTASSIUM CHLORIDE 10 MEQ SR TABLET PO ONE (07:30)
[2019-03-16] MEDS ORDERED: ALTEPLASE 2 MG/2 ML VIAL (J2997 PER 1MG) As Ordered ONE (08:38)
[2019-03-16] MEDS: MOM 30ML SUSPENSION UDC PO SCH ×2 (09:00→10:47)
[2019-03-16] MEDS: DOCUSATE SODIUM 100 MG CAP PO SCH ×3 (09:00→20:08)
--- NOTE | 2019-03-16 09:40 | POST-OPPD ---
Postoperative Procedure Note Date Of Procedure: Mar 16, 2019 Time Of Procedure: 09:36 PREOPERATIVE DIAGNOSIS: sfa thrombosis POSTOPERATIVE DIAGNOSIS: same FINDINGS: successful SFA thrombolysis, SFA, popliteal, anterior tibial and posterior tibial artery angioplasty. Post intervention there is flow in the anterior tibial artery, scattered spasm and distal emboli in the posterior tibial artery. This was treated with 1mg local TPA and angioplasty. 300 micrograms of nitroglycerine was also administered locally in the anterior tibial artery. Continue neurovascular checks for 24 hours. PROCEDURE: successful SFA thrombolysis, SFA, popliteal, anterior tibial and posterior tibial artery angioplasty. Post intervention there is flow in the anterior tibial artery, scattered spasm and distal emboli in the posterior tibial artery. This was treated with 1mg local TPA and angioplasty. 300 micrograms of nitroglycerine was also administered locally in the anterior tibial artery. Continue neurovascular checks for 24 hours. SURGEON: Calin ANESTHESIA: local ESTIMATED BLOOD LOSS: < 5 ml COMPLICATIONS: none POSTOPERATIVE CONDITION: stable JOHANNY SINGLETARY MD Mar 16, 2019 09:40
[2019-03-16] MEDS: MAGNESIUM CHLORIDE 64 MG TABCR (SLO MAG) PO SCH (10:47)
[2019-03-16] MEDS: THIAMINE 100 MG TAB PO SCH (10:48)
[2019-03-16] MEDS: FOLIC ACID 1 MG TAB PO SCH (10:49)
[2019-03-16] MEDS: PANTOPRAZOLE 40MG TAB (PROTONIX) PO SCH (10:49)
[2019-03-16] MEDS: MULTIVITAMINS/MINERALS THERAP 1 TAB PO SCH (10:49)
--- NOTE | 2019-03-16 11:23 | REP ---
AP PORTABLE CHEST: 03/16/2019 at 10:28 AM. COMPARISON: 03/15/2019, 03/13/2019. CLINICAL HISTORY: Follow up pleural effusion. Right-sided chest tube. FINDINGS: Right-sided chest tube is again seen and position unchanged. I do not see evidence for right pneumothorax. There is improved aeration of the right mid and lower lung zone. Linear lines in the left apex suggest overlying skin fold, drape, or other findings as opposed to pneumothorax. Heart size unchanged. The aorta is calcified at the arch, mildly tortuous, unchanged. Airway midline. Some vascular congestion, underlying fibrosis noted. IMPRESSION: 1. Improvement in right base air space consolidation with right chest tube, unchanged. No visible right pneumothorax. 2. Lucent peripheral appearance in the left apex more suggestive of overlying skin folds and objects on the chest wall than pneumothorax There are some lung markings beyond these. Electronically Signed by Billy Eduardo MD 03/16/2019 07:51 P
[2019-03-16] MEDS: VANCOMYCIN HCL 1,000 MG, VIAL MATE ADAPTER 1 EACH in D5W 250 ML IV SCH ×2 (12:12→21:49)
[2019-03-16 12:17] LABS: HEMATOCRIT 41.1 % (42.0-52.0); HEMOGLOBIN 13.1 g/dl (13.5-17.5)
[2019-03-16 12:28] LABS: INR 1.23; PROTHROMBIN TIME 15.2 SECONDS (11.8-14.0)
[2019-03-16 12:29] LABS: PARTIAL THROMBOPLASTIN TIME 45.8 SECONDS (25.0-38.4)
[2019-03-16] MEDS ORDERED: DIGOXIN INJ 0.5 MG/2 ML AMP (J1160) IV ONE (14:30)
[2019-03-16] MEDS ORDERED: FUROSEMIDE 40 MG TAB PO ONE (15:00)
--- NOTE | 2019-03-16 15:19 | IPN ---
DATE: 03/16/2019 CARDIOLOGY PROGRESS NOTE - COVERING FOR DR. BRIZUELA SUBJECTIVE: The patient claims to be quite comfortable lying virtually flat in bed. Has no pleuritic chest pain despite his multiple pulmonary emboli. Remains unaware of his heart action. Appears to be tolerating his combination medical therapy without adverse effect. No signs of bleeding on anticoagulation. OBJECTIVE: Bearded late middle-aged male, appears quite comfortable, lying virtually flat. No pallor or cyanosis. Heart rate 120 beats per minute and somewhat irregular, blood pressure 129/80 supine, respiratory rate 16, oxygen saturation 94% on room air. Afebrile. Weight 147 pounds, height 67 inches, body mass index (BMI) 23. Normal oral moisture. No central cyanosis. Trachea midline. Neck veins currently did not appear to be more than 3 cm above the sternal angle. Normal chest configuration with slightly reduced chest expansion but fair air entry over both lung rodarte with diffuse end inspiratory fine crepitations. Slight prolongation of expiration but no audible wheeze. Apical impulse at the midclavicular line - questionable. S1 and S2 somewhat variable, no audible gallops. Has apical systolic murmur that does not seem to vary with his rhythm, in keeping with mitral insufficiency. No separate audible systolic ejection murmur. Soft abdomen. Fairly gross lower leg swelling persists. 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 No recent EKG. Admission tracing again showing underlying atrial flutter with rapid ventricular response. Right axis deviation with slow precordial R-wave progression in keeping with his pulmonary disease. Prominent precordial voltage, certainly suggestive of left ventricular hypertrophy. Nonspecific ST/T-wave abnormalities. ECHOCARDIOGRAM: Study performed on his admission showed mild concentric left ventricular hypertrophy with global hypokinesis and estimated left ventricular ejection fraction (LVEF) of 20%. Normal right ventricular size. Biatrial moderate enlargement. Estimated pulmonary arterial pressure at least mildly increased. Inferior vena cava (IVC) size upper limits of normal with reduced respiratory collapse in keeping with an elevated central venous pressure. Normal aortic diameters. Mild aortic valvular sclerosis with moderate insufficiency. Mild mitral annular calcification with no inflow tract obstruction but moderate insufficiency. Normal appearing tricuspid valve with mild insufficiency. No pericardial effusion. Blood work today showed a hemoglobin of 12.8, which is essentially stable. White blood cell count is 14,000 and is also stable. Platelet count slightly down from admission at 105,000. Arterial blood gas March 14, 2019 showed a pH of 7.45, a pCO2 of 38, a pO2 of 83. Chemistry today shows electrolyte balance with BUN 28, creatinine 0.8, fasting glucose 95, magnesium 1.8. Admission albumin was low at 2.6. Admission pro-BNP level was elevated at 7036. No TSH was performed. Pleural tap showed considerable pus cells but blood cultures and fluid cultures were negative for anaerobes and aerobic bacteria. Gram-stain of sputum showed only epithelials, a few pus cells. Admission chest CT angiogram showed bilateral pulmonary emboli with large right pleural effusion and small left pleural effusion and cardiomegaly. Chest x-ray this morning showed improving right inferior lung consolidation with no visible pneumothorax, visible right chest tube. Heart size remains increased with calcification of the aortic arch with mild tortuosity in keeping with chronic hypertension. Some pulmonary vascular congestion and underlying pulmonary fibrosis. IMPRESSION/PLAN: 1. Atrial flutter: Uncertain duration but ventricular response remains challenging to control. We will use combination increased metoprolol 50 mg every 6 hours, hold for heart rate less than 90 with digoxin 0.25 mg daily to improve rate control. Remains on IV heparin infusion with his multiple bilateral pulmonary emboli. 2. 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 We anticipate his left ventricular systolic function will improve with optimal heart rate control. I have placed him on a modest salt and fluid intake restriction, and I have given him a dose of Lasix 40 mg by mouth today. Followup chemistry. We have put a request for cardiac rehab for congestive heart failure (CHF) education and gradual ambulation. We have tried to impress upon him the importance of avoiding alcohol with his impaired left ventricular function. 3. Abnormal EKG: Has findings in keeping with his pulmonary disease as well as hypertension. Could not rule out a prior septal/anterior infarction. He certainly has multiple coronary risk factors. Serial Troponin I levels were negative at this time. His echocardiogram apparently did not show localized wall motion abnormality but a global hypokinesis, somewhat against prior infarction. 4. Hypertensive heart disease (benign with heart failure): Current blood pressure is controlled, though his initial admission values were elevated even with his multiple pulmonary emboli and rapid ventricular response atrial flutter. Fortunately, BUN and creatinine have improved since his admission and are virtually normal at this point. 5. Mitral and aortic valve disorder (nonrheumatic)/insufficiency: Has auscultatory findings in keeping with his mitral insufficiency, but I cannot detect his aortic insufficiency. Leukocytosis but no other obvious features to suggest endocarditis. Undoubtedly, these valvular lesions are contributing to his congested state. Long-term management of his hypertension, hopefully within the use of at least low-dose vasodilator, such as Entresto, would be ideal. I will continue to follow him with you until Dr. Brizuela returns on Monday. There were multiple family members in his room with many questions regarding his condition. I tried to address the cardiac issues to alleviate some of their worries and concerns, and improve their understanding of his serious medical condition.
[2019-03-16] MEDS: METOPROLOL TART 50 MG TAB PO SCH ×2 (18:12→23:57)
[2019-03-16] MEDS: PERCOCET 5MG/325MG TAB PO PRN (18:13)
--- NOTE | 2019-03-16 18:40 | IPNPDOC ---
Text Note Date of Service The patient was seen on 03/16/19. NOTE Subjective: patient complains of moderate chest pain around chest tube, no pu lsus his right distal leg in the morning. Patient denied fever, chills, diarrhea or dysuria. General: NAD HEENT: PERRLA, EOMI, no JVD Lungs: Bilateral scattered rhonchi and rales. Chest tube in place, serosanguineous discharge CV: S1-S2, tachycardic rate 150 Abdomen: nontender, nondistended Extremities: +3 L tibial edema, +4 tibial edema on the right side, no pulse on the right dorsalis pedis and posterior tibialis Neuro: Nonfocal, cranial nerves from 2-12 intact Patient is 63 years old male without significant past medical history presented hospital with increased shortness of breath. Patient stated that in February he has been treated with doxycycline and prednisone for pneumonia. However for past few days has increased shortness of breath and has leg swelling. In emergency room patient was found to have on CTA significant bilateral pulmonary emboli, large right pleural effusion and small left pleural effusion along with elements of partial collapse, ground-glass infiltrates, atelectasis, cardiomegaly. Pt was found to have right common iliac artery demonstrates mild to moderate stenosis proximally. Severe stenosis distal right common femoral artery with occlusion of the right superficial femoral artery at its origin. Distal right superficial femoral artery is reconstituted by small collateral profunda vessels. (1) Sepsis Patient has leukocytosis, tachycardia and dyspnea Patient has recently had pneumonia On presentation he has large right pleural effusion and small left pleural effusion along with elements of partial collapse, ground-glass infiltrates, and atelectasis I started broad-spectrum antibiotics vancomycin and Zosyn Chest tube placed by Dr. 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 He received 40 mg Lasix today Cardiology team follows him Pulmonary embolism Unprovoked pulmonary emboli Heparin drip for now There is concern for underlying malignancy, patient lost 20 pounds for past year Mitral and aortic valve disorder (nonrheumatic)/insufficiency these valvular lesions are contributing to his congested state Hypertension Blood pressures under control for now Alcohol abuse Status: Chronic Problem Text: CIWA protocol Social service on board Right distal leg arterial insufficiency IR performed on 03/16/19 successful SFA thrombolysis, SFA, popliteal, anterior tibial and posterior tibial artery angioplasty. Post intervention there is flow in the anterior tibial artery, scattered spasm and distal emboli in the posterior tibial artery DVT Unprovoked That is suspicious for malignancy Continue anticoagulation with heparin IV Exudative effusion Pleural fluid analysis positive for exudate most likely secondary to PE however there is possibility for malignancy Await cytology Continue broad-spectrum antibiotics VS,Fishbone, I+O VS, Fishbone, I+O Laboratory Tests 03/15/19 23:54 03/16/19 04:11 03/16/19 12:02 Vital Signs Date Time Temp Pulse Resp B/P (MAP) Pulse Ox O2 Delivery O2 Flow Rate FiO2 03/16/19 18:13 19 95 Room Air 03/16/19 18:12 120 112/66 03/16/19 09:10 3 03/16/19 04:00 97.2 I&O- Last 24 Hours up to 6 AM 03/16/19 06:00 Intake Total 3492 ml Output Total 1700 ml Balance 1792 ml JONAH ALFARO DO Mar 16, 2019 18:40
[2019-03-16] MEDS: HEPARIN DRIP 25,000 UNITS in IV 1 EA XX SCH (19:43)
[2019-03-16 19:49] LABS: HEMATOCRIT 41.3 % (42.0-52.0); HEMOGLOBIN 13.5 g/dl (13.5-17.5)
[2019-03-16 19:59] LABS: INR 1.24; PROTHROMBIN TIME 15.3 SECONDS (11.8-14.0)
--- NOTE | 2019-03-16 20:47 | REPVR ---
PROCEDURE INFORMATION: Exam: CT Chest Without Contrast Exam date and time: 03/16/2019 7:13 PM Age: 63 years old Clinical history: Condition or disease; Lung condition and disease; Pneumothorax; Additional info: ? Pneumothorax, bleb disease. TECHNIQUE: Imaging protocol: Computed tomography of the chest without contrast. 3D rendering: MIP reconstructed images were created and reviewed. Radiation optimization: All CT scans at this facility use at least one of these dose optimization techniques: automated exposure control; mA and/or kV adjustment per patient size (includes targeted exams where dose is matched to clinical indication); or iterative reconstruction. COMPARISON: CR - PORTABLE CHEST X-RAY 03/16/2019 10:28:[address] ANGIO CHEST 03/13/2019 11:42 AM (The reports from these studies were not available for review at the time of this interpretation.) FINDINGS: Tubes, catheters and devices: There is a right pleural chest tube entering into the right anterolateral 6th intercostal space and terminating along the posterior aspect of the right mid hemithorax just above the right major fissure. Thyroid: Unremarkable. Lungs: There are centrilobular and paraseptal emphysematous changes, predominantly upper lobes. There is consolidation in the anterior segment of the right upper lobe, lateral segment of the right middle lobe, and posterior segment of the right lower lobe, which is stable compared to the prior CT on 03/13/2019. There is compressive atelectasis in the dependent portions of both lower lobes associated with the bilateral pleural effusions. Pleural space: There is a small right pneumothorax measuring approximately 17%, with the majority of the gas in the anterior inferior aspect of the right hemithorax and a trace amount of gas in the apex of the right hemithorax. There is a trace right pleural effusion that has decreased in size compared to the prior CT on 03/13/2019. There is a small to moderate left pleural effusion that has increased in size compared to the prior CT on 03/13/2019. Heart: No cardiomegaly. There is a moderate size water density pericardial effusion that has increased in size compared to the prior CT on 03/13/2019. There are calcifications of the aortic, mitral valve, and coronary arteries. Mediastinum: No mediastinal mass, fluid collection, or pneumomediastinum. Aorta: There is no thoracic aortic aneurysm or intramural hematoma. There are moderate to severe atherosclerotic calcifications. Lymph nodes: There is a 12 mm precarinal lymph node, which has developed since the prior CT on 03/13/2019. There is a 10 mm prevascular lymph node and a 10 mm subcarinal lymph node, which are stable compared to the prior CT on 03/13/2019 Spleen: The spleen is small and measures 7.8 cm. Adrenals: Unremarkable. No adrenal mass. Intraperitoneal space: There is a small amount of ascites around the liver and in the hepatorenal recess. Bones/joints: There is no acute fracture. There are old healed fractures of the right posterior 4th through 12 ribs. There are chronic moderate anterior wedge compression fractures of T3 and T4 and chronic mild anterior wedge compression fractures of T5, T11, T12, L1, and L2, which are similar in appearance compared to the prior CT on 03/13/2019. Soft tissues: There is gas in the soft tissues in the right chest wall and right arm. IMPRESSION: 1. Small right pneumothorax measuring 17%, with a right pleural chest tube in place as detailed above. 2. Moderate size transudative pericardial effusion that has increased in size compared to the prior CT on 03/13/2019. 3. Areas of consolidation in the anterior segment of the right upper lobe, lateral segment of the right middle lobe, and posterior segment of the right lower lobe, which are stable compared to the prior CT on 03/13/2019 and may represent pulmonary infarcts or pneumonia. 4. Small to moderate left pleural effusion that has increased in size compared to the prior CT on 03/13/2019. 5. Trace right pleural effusion that has decreased in size compared to the prior CT on 03/13/2019. 6. Small amount of ascites around the liver and in the hepatorenal recess. Electronically signed by: Benedicto Smith On 03/16/2019 20:46:48 PM
--- NOTE | 2019-03-16 21:06 | IPN ---
DATE: 03/16/2019 Mr. Gee was down in interventional radiology this morning and I did not see him and therefore I am seeing him this evening. He is now lying in bed comfortably and he states that he is breathing better than he was yesterday. He says that he is coughing up some sputum but has not collected it but rather swallows it. His pain is being well controlled at the chest tube insertion site. His vital signs show a maximum temperature (t-max) of 97.3 with a heart rate that ranges between 130 and 120 in a sinus tachycardia with a respiratory rate of 16 to 19 without the use of accessory muscles who is 95% saturated now on room air and whose blood pressure is ranging between 112/66 to 129/98. His intake and output the past 24 hours has been recorded as 3647 in and 1635 out for a positivity of 2000 mL. He has put out 670 out of the chest tube, which is less than 1185 yesterday. His weight is not done today. He has had a total of 965 mL in urine. PHYSICAL EXAMINATION: LUNGS: His lungs show inspiratory crackles alf through inspiration in the right lower hemithorax. He has occasional rhonchi but this clears with coughing on the left side. Percussion note is full to the diaphragm. He has subcutaneous emphysema over the anterior right chest wall. This is not visibly noticeable. CARDIAC EXAM: Without murmurs, clicks, gallops or rubs. I cannot feel his point of maximum impulse (PMI). S1, S2 are normal. ABDOMEN: Tympanitic and distended but nontender. Bowel sounds are hypoactive but present. I cannot appreciate hepatomegaly beneath his distention. He did have a bowel movement today. EXTREMITIES: Show 4+ pretibial edema. No calf tenderness. I do not feel peripheral pulses through the edema, though the nurses tell me that they can obtain a Doppler pulse on the left but not on the right. SKIN: Warm, dry and perfused without cyanosis or mottling, including that of the nail beds and knees. His right toes feel a little bit cooler than the rest of the foot. He certainly does not have impending limb loss. NECK: Supple. There is no jugular venous distention. No subcutaneous emphysema. Trachea is midline. MOUTH: Shows his mucous membranes to be pink and moist. Lips and commissures without lesions. There is no thrush. EYES: Show his pupils to be equal and reactive. Extraocular motion intact. Sclerae anicteric. NEUROLOGIC: Shows II through XII intact with gross motor and gross sensation intact. Gait is not tested. PSYCHIATRIC: Shows him to be awake and alert, oriented times three with appropriate mood and affect and conversational. LABORATORY DATA: His white count today is 14.3, down from 17.7 yesterday. Hemoglobin and hematocrit are 12.8 and 39.0 with a platelet count of 105 and stable. Differential shows 85% neutrophils, 7% lymphocytes, 5% monocytes. There are no immature forms and no toxic granulations. His electrolytes are normal with a BUN and creatinine of 28 and 0.82 with a glucose of 95, calcium 7.5, magnesium 1.9. His last albumin on 03/13/2019 was 2.6. Microbiology shows no growth on his blood cultures. Pleural fluid is negative for organisms on gram-stain and on culture, aerobic and anaerobic. Sputum culture is still pending. History chest x-ray today shows a marked improvement in the right lower lobe infiltrate, all consistent with post expansion pulmonary edema. The right hemithorax is now almost normal except for a proximal infiltrative pattern. He has developed increased subcutaneous emphysema, which was not present yesterday. This is lateral and inferior. There is no subcutaneous emphysema in the neck. X-ray is done portably. In response to his subcutaneous emphysema, I did obtain a CT of him tonight. He has large apical blebs and bullae. There is a sliver of a pneumothorax inferiorly. He still has the lesion in the right upper lobe, medially, with air and/or air bronchograms. He has developed a new area of consolidation in the right lower lobe, which has almost the same appearance as that in the left upper lobe. I am suspecting that both of these represent pulmonary infarcts and that he may be leaking air from one of them, particularly the new one in the right lower lobe. Chest tube is in good place but posteriorly. He still has a little bit of post expansion atelectasis on the CT in the right lower lobe. The chest tube does enter the chest below the new right lower lobe lesion. He also has a small concentric pericardial effusion, which is a bit worse than his CT scan of 03/13/2019 when he was admitted. At that time, he had a very small pericardial effusion, mostly posterior and to the left. At that point in time, it measured 3 to 4 mm. Today, it measures 7 to 8 mm. The great vessels look to be intact. There is no evidence of a dissection. He has also developed a larger left pleural effusion, which may need to be drained with a pigtail catheter if it becomes symptomatic and larger. IMPRESSION: 1. Bilateral pulmonary emboli. 2. Deep vein thrombosis (DVT) on the right side. 3. Atrial flutter with rapid ventricular response, still not controlled. 4. Right pleural effusion, resolved with a chest tube. 5. Left pleural effusion, increasing. 6. Postexpansion pulmonary edema, improving. 7. Prior alcohol abuse. 8. Prior tobacco abuse. 9. Acute occlusion of right lower extremity arteries without impending limb loss at this point in time. 10. Probable pulmonary infarcts in medial right upper lobe and lateral right lower lobe. 11. Small pneumothorax. PLAN/DISCUSSION: From a pulmonary [id number], his only worrisome problem is the new development of subcutaneous emphysema. It is very small. I do think that he has had two pulmonary infarcts, as noted above. One may have necrosed and now is leaking, although there is no air leak via the chest tube. The chest tube is however posterior. He is continuing on heparin for his pulmonary emboli. I will evaluate him first thing tomorrow morning before I leave on vacation and Dr. Hatfield will follow his chest tube thereafter. If he does develop a pneumothorax overnight, I will place an anterior chest tube.
[2019-03-16 21:41] LABS: THYROID STIMULATING HORMONE 5.19 uIU/ML (0.358-3.740); VANCOMYCIN LEVEL TROUGH 17.6 UG/ML (10.0-20.0)
--- NOTE | 2019-03-16 21:51 | PHACANCOPD ---
PHARMACY VANCOMYCIN DOSING Pt Demographics Demographics Patient Age:63 , Weight:66.900 , Gender: male Adjusted Body Weight Date: 03/13/19, Adjusted Body Weight: [64.7] Kg Events Past 24 Hours Events Past 24 Hours: NO: Dialysis, Diuretic Therapy, Change in CrCl, Fever, Elevation in WBC, Pending Diagnostics, Pending Procedures, Other Vancomycin Vancomycin indication: SEPSIS Vancomycin Target Ranges: 15-20 mcg/ml Vancomycin Load Y/N: Yes Load Dose Date Time Vancomycin Load Dose: 1.25G Date: 03/13/19 Time:17:00 Vancomycin Dose Date: 03/16/19. Current Vancomycin Dose: [1G IV Q12H] Intermittent Dosing?: No Labs Labs Item Value Date Time White Blood Count 14.3 10^3/uL H 03/16/19410 Creatinine 0.82 MG/DL 03/16/19410 Blood Urea Nitrogen 28 MG/DL H 03/16/19410 Glomerular Filtration Rate > 60.0 03/16/19410 Vancomycin Level Trough 17.6 UG/ML 03/16/192054 Vital Signs Label Value Date Time Patient Temperature 96.8 degrees F 03/16/191999 Temperature Source Temporal 03/16/191999 Micro Microbiology 03/15/19 Stool Occult Blood ([facility]) - Final, Complete 03/13/19 Blood Culture - Preliminary, Resulted No Growth after 72 hours. All specime... 03/13/19 Gram Stain - Final, Resulted 03/13/19 Sputum Culture, Resulted Pending 03/13/19 Blood Culture - Preliminary, Resulted No Growth after 72 hours. All specime... 03/13/19 Acid Fast Stain, Received Pending 03/13/19 Mycobacterial Culture, Received Pending 03/13/19 Fungal Smear, Received Pending 03/13/19 Fungal Culture, Received Pending 03/13/19 Gram Stain - Final, Complete 03/13/19 Body Fluid Culture - Final, Complete 03/13/19 Anaerobic Culture - Final, Complete Creatinine Clearance Date:03/13/19. Creatinine Clearance: [60ML/MIN]. Assessment and Plan Maintaining Current Dose?: Yes Reason for dose change: No Dose Change Pharmacist Note Pharmacist Note Date: 03/16/19. Pharmacist note: trough of 17.6 is within target range. will continue current dosing. Will continue to monitor and make adjustments as need ed. YESSENIA VERDUGO PHARMACY Mar 16, 2019 21:51
[2019-03-17] VITALS (8 sets, daily range): BP systolic 111–142; BP diastolic 58–83
[2019-03-17] MEDS: LEVALBUTEROL 1.25 MG/0.5 ML CONCENTRATE NEB NEB SCH ×4 (01:24→19:56)
[2019-03-17 02:41] LABS: BASO % 0.2 % (0.0-1.0); EOS # 0.1 10^3/uL (0.0-0.5); EOS % 0.8 % (0.0-3.0); HEMATOCRIT 40.7 % (42.0-52.0); HEMOGLOBIN 13.2 g/dl (13.5-17.5); LYMPH # 1.3 10^3/uL (1.5-5.0); LYMPH % 9.9 % (24.0-44.0); MEAN CORPUSCULAR HGB CONC 32.4 g/dl (32.0-36.5); MEAN CORPUSCULAR VOLUME 98.8 fl (80.0-96.0); MONO # 0.7 10^3/uL (0.0-0.8); MONO % 5.2 % (0.0-5.0); NEUTROPHILS # 11.1 10^3/uL (1.5-8.5); NEUTROPHILS % 83.4 % (36.0-66.0); PLATELET COUNT, AUTOMATED 115 10^3/uL (150-450); RED BLOOD COUNT 4.12 10^6/uL (4.30-6.10); WHITE BLOOD COUNT 13.3 10^3/uL (4.0-10.0)
[2019-03-17 02:50] LABS: ALBUMIN 1.8 GM/DL (3.2-5.2); ALT/SGPT 247 U/L (12-78); BILIRUBIN,TOTAL 0.5 MG/DL (0.2-1.0); BLOOD UREA NITROGEN 20 MG/DL (7-18); CALCIUM LEVEL 7.4 MG/DL (8.8-10.2); CARBON DIOXIDE LEVEL 29 MEQ/L (21-32); CHLORIDE LEVEL 105 MEQ/L (98-107); GLOMERULAR FILTRATION RATE > 60.0 (>49); GLUCOSE, FASTING 97 MG/DL (70-100); MAGNESIUM LEVEL 1.7 MG/DL (1.8-2.4); SODIUM LEVEL 140 MEQ/L (136-145); TOTAL PROTEIN 4.5 GM/DL (6.4-8.2)
[2019-03-17] MEDS: PIPERACILLIN/TAZOBACTAM SOD 3.375 GM in D5W MINI-BAG PLUS 50 ML IV SCH ×3 (05:04→20:55)
[2019-03-17] MEDS: METOPROLOL TART 50 MG TAB PO SCH ×3 (05:05→18:40)
[2019-03-17] MEDS: FOLIC ACID 1 MG TAB PO SCH (08:51)
[2019-03-17] MEDS: MULTIVITAMINS/MINERALS THERAP 1 TAB PO SCH (08:51)
[2019-03-17] MEDS: PANTOPRAZOLE 40MG TAB (PROTONIX) PO SCH (08:51)
[2019-03-17] MEDS: DIGOXIN 0.25 MG TAB PO SCH (08:51)
[2019-03-17] MEDS: DOCUSATE SODIUM 100 MG CAP PO SCH ×2 (08:51→20:55)
[2019-03-17] MEDS: MAGNESIUM CHLORIDE 64 MG TABCR (SLO MAG) PO SCH (08:51)
[2019-03-17] MEDS: MOM 30ML SUSPENSION UDC PO SCH (08:52)
[2019-03-17] MEDS: VANCOMYCIN HCL 1,000 MG, VIAL MATE ADAPTER 1 EACH in D5W 250 ML IV SCH ×2 (08:53→22:28)
--- NOTE | 2019-03-17 09:04 | IPN ---
DATE: 03/17/2019 Mr. Gee is breathing well this morning. He has just come back getting a chest x-ray and is comfortable with the chest tube pain control being quite adequate. His vital signs show a T-max of 99.0 with a heart rate that ranges between 99 and 119 in atrial flutter, much better controlled. Respiratory rate is 18 to 16 without the use of accessory muscles and he is 93% to 94% saturated on room air. Blood pressure is ranging between 112/68 to 142/81. His intake and output the past 24 hours has been recorded as 1751 in and 2044 out for a negativity of 294 mL. He has put out 545 mL from the chest tube and there is no air leak. Weight today is 65 kg compared to 66.9 kg yesterday. PHYSICAL EXAMINATION: His lungs show some inspiratory crackles at the right lower base assisted through inspiration. The are fairly fine. The left lung shows normal vesicular sounds. Percussion note is full to the diaphragm. Cardiac exam now shows a systolic murmur heard best the left lower sternal border and apex. I have not appreciated that before. S1 and S2 are normal. I cannot feel his point of maximum impulse (PMI). Abdomen is soft, nontender. Bowel sounds are positive. He is slightly distended and tympanitic. There is no CVA tenderness. Extremities show 4+ pretibial edema. No calf tenderness. No differential swelling of the upper extremities. Skin is warm, dry and perfused without cyanosis or mottling, including that of the nail beds and knees. Nurses tell me they can now hear Doppler pulses on both sides. Neck is supple. There is no jugular venous distention. No subcutaneous emphysema. Trachea is midline. He does have subcutaneous emphysema over the anterior chest up to the clavicle and extending posteriorly to the posterior axillary line. Mouth shows his mucous membranes to be pink and moist. Lips and commissures without lesions. There is no thrush. Eyes show his pupils to be equal and reactive. Extraocular motion intact. Sclera nonicteric. Neuro shows II through XII intact along with gross motor and gross sensation intact. Gait is not tested. Psychiatric shows him to be awake and alert, oriented times three with appropriate mood and affect and conversational. His white count today is 13.3, down from 14.3 yesterday. Hemoglobin and hematocrit are 13.2 and 40.7, unchanged from yesterday, with a platelet count of 115 and stable. Differential shows 83% neutrophils, 9% lymphocytes, 5% monocytes. There are no immature forms and no toxic granulations. His electrolytes are normal with a BUN and creatinine of 20 and 0.8 with a glucose of 97, and a calcium of 7.1 with a corresponding albumin today of 1.8. AST and ALT are still elevated at 127 and 247, respectively. His PTT is 91 seconds. His chest x-ray shows his lung fully expanded to the chest wall. I do not see an apical or lateral air space. He has some blunting at the right costophrenic angle. The subcutaneous emphysema looks to be dissipating. Chest tube is in good place. He does have a new infiltrative pattern in the right lower lobe, which was absent yesterday on the portable film. I am suspecting that it corresponds to the consolidation/infiltrate seen on CT yesterday in the right lower lobe. Lateral chest x-ray also shows a wedge of atelectasis and/or consolidation in the left posterior hemithorax. IMPRESSION: 1. Bilateral pulmonary emboli. 2. Deep vein thrombosis (DVT) right side. 3. Atrial flutter with rapid ventricular response, now controlled. 4. Right pleural effusion, resolved with a chest tube. 5. Left pleural effusion seen yesterday, small but increasing on the CT scan. 6. Postexpansion pulmonary edema, resolved. 7. Prior alcohol abuse. 8. Prior tobacco abuse. 9. Acute occlusion of right lower extremity arteries, but without impending limb loss, improved. 10. Probable pulmonary infarcts in medial right upper lobe and lateral right lower lobe. 11. Small pneumothorax. PLAN/DISCUSSION: I will certainly continue his chest tube until the fluid stops draining. As noted in last nights note, I think he does have pulmonary infarcts. The post expansion compression atelectasis is now resolved. His chest tube does not have an air leak, although it is posterior. It does look as though the subcutaneous emphysema has changed in its character and is dissipating. It is more linear today on chest x-ray. He is continued on heparin for his pulmonary emboli. From my [id number]-fror, I have no objections to starting him on an alternate anticoagulant p.o. I will now be gone for the next [address] Hatfield will follow his chest tube as well as his pulmonary status. For today, I will keep his chest tube on suction.
--- NOTE | 2019-03-17 10:26 | REP ---
CHEST PA AND LATERAL: 03/17/2019. COMPARISON: CT chest 03/16/2019, AP chest 03/16/2019, PA and lateral 03/14/2019. CLINICAL HISTORY: Right chest tube. FINDINGS: The two lines over the left apex are no longer visible representing clearing of the skin fold artifact seen on the previous study and confirmed by CT yesterday. There is a left pleural effusion with blunting of CP angle and a small right effusion. The right chest tube is unchanged in position. There is less subcutaneous emphysema in the right chest wall than on yesterday's study. A tiny air pocket is seen peripherally in the right mid lower lung zone representing a small pneumothorax adjacent to the anterolateral right 6th rib. Heart and mediastinal contours, unchanged. IMPRESSION: 1. There are bilateral pleural effusions with basilar atelectasis or infiltrates and right-sided chest tube. Tiny air collection adjacent to the right anterolateral 6th rib. 2. Clearing of the artifact of skin folds at the left apex. No other interval change. Electronically Signed by Billy Eduardo MD 03/17/2019 11:02 A
--- NOTE | 2019-03-17 11:27 | IPNPDOC ---
Text Note Date of Service The patient was seen on 03/17/19. NOTE Subjective: Patient complains of moderate pain in his right foot. No right do rsalis pedis pulsation. Patient denied fever, chills, diarrhea or dysuria. General: NAD HEENT: PERRLA, EOMI, no JVD Lungs: Bilateral scattered rhonchi and rales. Chest tube in place, serosanguineo us discharge CV: S1-S2, tachycardic rate 150 Abdomen: nontender, nondistended Extremities: +3 L tibial edema, +4 tibial edema on the right side, no pulse on the right dorsalis pedis Neuro: Nonfocal, cranial nerves from 2-12 intact Patient is 63 years old male without significant past medical history presented hospital with increased shortness of breath. Patient stated that in February he has been treated with doxycycline and prednisone for pneumonia. However for past few days has increased shortness of breath and has leg swelling. In emergency room patient was found to have on CTA significant bilateral pulmonary emboli, large right pleural effusion and small left pleural effusion along with elements of partial collapse, ground-glass infiltrates, atelectasis, cardiomegaly. Pt was found to have right common iliac artery demonstrates mild to moderate stenosis proximally. Severe stenosis distal right common femoral artery with occlusion of the right superficial femoral artery at its origin. Distal right superficial femoral artery is reconstituted by small collateral profunda vessels. (1) Sepsis Patient has leukocytosis, tachycardia and dyspnea Patient has recently had pneumonia On presentation he has large right pleural effusion and small left pleural effusion along with elements of partial collapse, ground-glass infiltrates, and atelectasis I started broad-spectrum antibiotics vancomycin and Zosyn Chest tube placed by Dr. Tran, he recommended to continue chest tube suction continue his chest tube until the fluid stops draining. There is suspicion for pulmonary infarcts. The post expansion compression atelectasis is now resolved. His chest tube does not have an air leak, although it is posterior. 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 He received 40 mg yesterday, developed good urine output Cardiology team follows him Pulmonary embolism Unprovoked pulmonary emboli Heparin drip for now There is concern for underlying malignancy, patient lost 20 pounds for past year Patient will need to repeat CT scan of the chest and CT of abdomen and pelvis after resolution of pulmonary emboli and infiltrates Mitral and aortic valve disorder (nonrheumatic)/insufficiency these valvular lesions are contributing to his congested state Hypertension Blood pressures under control for now Alcohol abuse Continue with [facility] protocol Social service on board Right distal leg arterial insufficiency IR performed on 03/16/19 successful SFA thrombolysis, SFA, popliteal, anterior tibial and posterior tibial artery angioplasty. Post intervention there is flow in the anterior tibial artery, scattered spasm and distal emboli in the posterior tibial artery Patient still not has pulse on the right dorsalis pedis artery. IR will continue thrombolysis for today DVT Unprovoked That is suspicious for malignancy Continue anticoagulation with heparin IV Exudative effusion Pleural fluid analysis positive for exudate most likely secondary to PE however there is possibility for malignancy Await cytology Continue broad-spectrum antibiotics VS,Pedroe, I+O VS, Pedroe, I+O Laboratory Tests 03/16/19 12:02 03/16/19 19:31 03/17/19 02:03 Vital Signs Date Time Temp Pulse Resp B/P (MAP) Pulse Ox O2 Delivery O2 Flow Rate FiO2 03/17/19 08:51 112 03/17/19 05:05 144/77 03/17/19 04:00 97.0 16 96 Room Air 03/16/19 09:10 3 I&O- Last 24 Hours up to 6 AM 03/17/19 06:00 Intake Total 1562 ml Output Total 3000 ml Balance -1438 ml JONAH ALFARO DO Mar 17, 2019 11:26
[2019-03-17] MEDS ORDERED: FUROSEMIDE 40 MG TAB PO ONE (14:00)
[2019-03-17] MEDS ORDERED: fentaNYL 100 MCG/2 ML INJECTION (J3010) As Ordered ONE ×2 (14:49→17:36)
[2019-03-17] MEDS ORDERED: LIDOCAINE 1% MDV 20ML VIAL As Ordered ONE (14:50)
[2019-03-17] MEDS ORDERED: ISOVUE-300 61% 50ML VIAL (Q9967) As Ordered ONE ×2 (14:50→16:48)
[2019-03-17] MEDS ORDERED: MIDAZOLAM INJ 2 MG/2 ML VIAL (J2250) As Ordered ONE (14:50)
--- NOTE | 2019-03-17 14:50 | ECGEPIP ---
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
[2019-03-17] MEDS ORDERED: diphenhydrAMINE INJ 50MG/ML VIAL (J1200) As Ordered ONE (15:56)
[2019-03-17] MEDS ORDERED: ALTEPLASE 2 MG/2 ML VIAL (J2997 PER 1MG) As Ordered ONE (16:37)
[2019-03-17] MEDS ORDERED: NITROGLYCERIN IN D5W 25MG/250ML (100MCG/ML) As Ordered ONE (16:55)
--- NOTE | 2019-03-17 18:16 | POST-OPPD ---
Postoperative Procedure Note Date Of Procedure: Mar 17, 2019 Time Of Procedure: 18:12 PREOPERATIVE DIAGNOSIS: cold right leg POSTOPERATIVE DIAGNOSIS: same FINDINGS: sfa and popliteal patent with clot in mid popliteal and at bifurcation of posterior tibial and anterior tibial artery. Clot at distal posterior tibial artery at ankle. PROCEDURE: SFA stent and angioplasty. Popliteal angioplasty, anterior tibial recanalization, angioplasty and local TPA administration. Posterior tibial artery recanalization, angioplasty and local TPA administration. At the conclusion of the procedure, there is clearance of clot from the popliteal, and anterior/posterior tibial bifurcation. Distally there is flow into the foot with scattered spasm in the tibials which was treated with local nitroglycerine. SURGEON: Cailn ANESTHESIA: local ESTIMATED BLOOD LOSS: < 5 ml COMPLICATIONS: none POSTOPERATIVE CONDITION: stable JOHANNY SINGLETARY MD Mar 17, 2019 18:16
[2019-03-17] MEDS ORDERED: ONDANSETRON 4MG/2ML VIAL (J2405) IV PRN (19:45)
[2019-03-17] MEDS ORDERED: HEPARIN SOD (PORCINE) 5000 UNITS/ML VIAL IV PRN (20:45)
[2019-03-17] MEDS ORDERED: HEPARIN DRIP 25,000 UNITS in IV 1 EA IV SCH (20:45)
[2019-03-17] MEDS: PERCOCET 5MG/325MG TAB PO PRN (20:56)
[2019-03-18] VITALS: BP 126/71
[2019-03-18] MEDS: METOPROLOL TART 50 MG TAB PO SCH ×2 (00:43→05:29)
[2019-03-18] MEDS: LEVALBUTEROL 1.25 MG/0.5 ML CONCENTRATE NEB NEB SCH ×4 (02:00→20:21)
[2019-03-18 04:00] VITALS: BP 155/87
[2019-03-18] MEDS: PIPERACILLIN/TAZOBACTAM SOD 3.375 GM in D5W MINI-BAG PLUS 50 ML IV SCH (05:29)
[2019-03-18 08:00] VITALS: BP 116/62
--- NOTE | 2019-03-18 08:50 | IPN ---
DATE: 03/18/2019 The patient feels a little bit better. He denies any dyspnea but he does complain about pain in his right lower extremity. Does not have any sensation of palpitations or chest discomfort. Blood pressure this morning was recorded at 155/87. Heart rate has been between 80 and 120. Saturation 94% on room air. His fluid balance yesterday was recorded as negative almost 3600. He made almost 6 liters of urine and the output from the chest tube was down to 20 mL though. Weight is 56.9 kg which is certainly erroneous compared to prior days. He is alert and oriented appropriate. His jugular venous pulse (JVP) is not high. Lungs are reasonably clear on the left even though there are somewhat diminished breath sounds over base. On the right, I do not appreciate any wheezes or crackles but again the base seems to be little diminished. Heart exam reveals irregular tachycardia. I do not appreciate any gallop. Faint murmur at the apex is noted that is systolic in nature. Abdomen is soft. Extremities: Have of 2+ edema to mid shins. Peripheral pulses are barely palpable. I do not appreciate any atrophic defects. LABORATORY: CBC reveals WBC count 13.3, hemoglobin 13.2, hematocrit 40, platelet count 115,000. Basic metabolic panel is normal. Magnesium is 1.7. Liver function tests are still quite high and albumin is 1.8 ASSESSMENT/PLAN: Mr. Gee is a 63-year-old man who presented with pulmonary embolism, atrial flutter with rapid ventricular rate (RVR) and severe left ventricular systolic dysfunction and probably embolization to the right lower extremity. As far as the management of his pulmonary embolism is concerned, it is managed by primary team. My recommendation would be to wait another day or two before switching him to oral anticoagulants due to chest tube placement and still inherent instability but nevertheless, I am not directly involved in that management. As far as the atrial flutter and congestive heart failure are concerned, his heart rate is better but certainly not optimal. I am going to switch him from immediate release to slow release Toprol. Will continue digoxin on current dose, but I will get a level on probably Monday because with his low albumin level, I am afraid that he will get toxic pretty soon and we will probably have to retreat with the dosing in spite of his normal renal function. I am going to add valsartan to his regimen in a very small dose for management of LV systolic dysfunction and concomitant hypertension. If well tolerated, we may later switched to Entresto. I will continue following the patient with you. He is certainly still very ill, even though his condition seems to be improving.
[2019-03-18] MEDS: MOM 30ML SUSPENSION UDC PO SCH (09:00)
[2019-03-18] MEDS: DOCUSATE SODIUM 100 MG CAP PO SCH ×2 (09:29→20:30)
[2019-03-18] MEDS: DIGOXIN 0.25 MG TAB PO SCH (09:29)
[2019-03-18] MEDS: MAGNESIUM CHLORIDE 64 MG TABCR (SLO MAG) PO SCH (09:29)
[2019-03-18] MEDS: ASPIRIN 81 MG ENTERIC TAB PO SCH (09:29)
[2019-03-18] MEDS: PANTOPRAZOLE 40MG TAB (PROTONIX) PO SCH (09:30)
[2019-03-18] MEDS: METOPROLOL SUCC (TopROL XL) 100MG *XL* TAB PO SCH (09:30)
[2019-03-18] MEDS: FOLIC ACID 1 MG TAB PO SCH (09:30)
[2019-03-18] MEDS: MULTIVITAMINS/MINERALS THERAP 1 TAB PO SCH (09:30)
[2019-03-18] MEDS: VANCOMYCIN HCL 1,000 MG, VIAL MATE ADAPTER 1 EACH in D5W 250 ML IV SCH (09:31)
[2019-03-18 09:39] LABS: BASO % 0.2 % (0.0-1.0); EOS # 0.2 10^3/uL (0.0-0.5); EOS % 1.8 % (0.0-3.0); HEMATOCRIT 40.3 % (42.0-52.0); HEMOGLOBIN 13.4 g/dl (13.5-17.5); LYMPH # 1.3 10^3/uL (1.5-5.0); LYMPH % 9.8 % (24.0-44.0); MEAN CORPUSCULAR HEMOGLOBIN 32.7 pg (27.0-33.0); MEAN CORPUSCULAR HGB CONC 33.3 g/dl (32.0-36.5); MEAN CORPUSCULAR VOLUME 98.3 fl (80.0-96.0); MONO # 0.9 10^3/uL (0.0-0.8); MONO % 6.9 % (0.0-5.0); NEUTROPHILS # 10.8 10^3/uL (1.5-8.5); NEUTROPHILS % 80.8 % (36.0-66.0); PLATELET COUNT, AUTOMATED 113 10^3/uL (150-450); WHITE BLOOD COUNT 13.3 10^3/uL (4.0-10.0)
[2019-03-18] MEDS: PERCOCET 5MG/325MG TAB PO PRN ×2 (09:48→17:53)
[2019-03-18 10:02] LABS: BLOOD UREA NITROGEN 15 MG/DL (7-18); CALCIUM LEVEL 7.6 MG/DL (8.8-10.2); CARBON DIOXIDE LEVEL 30 MEQ/L (21-32); CHLORIDE LEVEL 102 MEQ/L (98-107); CREATININE FOR GFR 0.96 MG/DL (0.70-1.30); GLOMERULAR FILTRATION RATE > 60.0 (>49); GLUCOSE, FASTING 109 MG/DL (70-100); MAGNESIUM LEVEL 1.4 MG/DL (1.8-2.4); POTASSIUM SERUM 3.6 MEQ/L (3.5-5.1); SODIUM LEVEL 138 MEQ/L (136-145)
--- NOTE | 2019-03-18 10:15 | CCN ---
DATE OF SERVICE: 03/18/2019 Mr. Gee is seen in progressive care unit (PCU). Dr. Tran had been managing chest tube but he is away and pulmonary team is managing chest tube for him. The patient is doing well. He is sitting up in a chair currently. He states he is slowly feeling better but still has some weakness. He has been working with physical therapy. He did undergo superficial femoral arterial occlusion (SFA) stent angioplasty and popliteal angioplasty yesterday with interventional radiology. He is afebrile. PHYSICAL EXAM: Vital signs: Temperature is 99.5, pulse is 114, respiratory rate 18, blood pressure is 116/68, pulse oximetry 96% on room air. General: The patient is alert and oriented. Speaks in complete sentences. He is sitting up in a chair. HEENT: Head is normocephalic, atraumatic. Moist mucous membranes. Neck: Neck is supple. No cervical lymphadenopathy. No obvious jugular venous distention (JVD). Trachea is midline. Pulmonary: The patient does have some crackles at the right base. There is some crepitations. No accessory muscle use. Heart: Regular rate and rhythm. No obvious murmurs appreciated. Abdomen: Positive bowel sounds, soft, nontender. No rebound or guarding. Extremities: The patient has 3+ pitting edema. No calf tenderness. Skin: Skin is warm and dry. Chest x-ray today shows a right air fluid level. There is a right chest tube. LABS: WBC 13.3, hemoglobin 13.4, hematocrit 40.3, platelets 113. Sputum culture grew out Haemophilus influenzae. ASSESSMENT AND PLAN: 1. Pleural effusion with chest tube placement. The patient has a chest tube. Today, we will change the chest tube to waterseal. If the patient tolerates this, then will consider clamping chest tube tomorrow. Will consider adding diuretic therapy if pressures stay good and are stable. 2. Pneumonia. Imaging has suggested pneumonia. The patient's sputum culture did grow out Haemophilus influenzae. He is on Zosyn and vancomycin. Will continue. 3. Pulmonary embolism (PE) and deep venous thrombosis (DVT). The patient is currently on a heparin drip. Will defer to primary team as to when he will be switched to oral anticoagulants. Will continue to follow along.
[2019-03-18] MEDS: HEPARIN SOD (PORCINE) 5000 UNITS/ML VIAL IV PRN (11:00)
[2019-03-18] MEDS ORDERED: MAG SULF 1GM/100ML (MAG RUN) 1 GM in IV 1 EA IV ONE (11:15)
--- NOTE | 2019-03-18 11:16 | REP ---
IR Right leg angiogram. IR Selective right iliac artery catheterization. IR Selective right common femoral artery catheterization. IR Selective recanalization of right superficial femoral artery. IR Super selective catheterization of right popliteal artery. IR infusion catheter placement in the right superficial femoral artery for thrombolysis. IR moderate sedation. Clinical Information: : Cold pulseless right leg. Acute thrombosis. Physician: Dr Layton.Procedure: The patient was advised of the benefits, risks, and alternatives of the procedure and informed consent was obtained.A time out was performed with verification of the patient's name, MRN, site of procedure, and type of procedure to be performed. The patient was positioned in the supine position on the angiographic table. The site was prepped and draped in the usual sterile fashion.Moderate sedation was performed by the physician including the presence of an independent trained observer who assisted in monitoring the patient's level of consciousness and physiological status. Following the administration of Fentanyl and Versed, the physician spent 60 minutes of continuous silv-hi-huio time with the patient. A downstairs maid radiograph reveals no gross abnormality. The left femoral artery was accessed with a micropuncture kit. A Pocketbook wire was advanced into the aorta. The micropuncture sheath was exchanged over the wire for a a 6-Tongan vascular sheath. A 4-Tongan flush catheter was advanced over the wire and used to catheterize the abdominal aorta. A pelvic arteriogram was performed. This demonstrates patent right common iliac, external iliac and internal iliac arteries. A Glidewire was advanced through the flush catheter and under fluoroscopy guidance was used to gain up and over access into the left common iliac artery. The flush catheter was exchanged over the wire for a glide cath. The glide cath in conjunction with a Glidewire was used to catheterize the left common femoral artery. The vascular sheath was advanced over the wire and catheter into the right common femoral artery. A right leg angiogram was performed from this location. This demonstrates complete occlusion of the superficial femoral artery. Patent profunda femoris. Occluded mid and distal superficial femoral artery. Distal reconstitution of the popliteal artery. An angiogram further down the leg was performed and this demonstrates patent reconstituted popliteal artery. Occlusion of the anterior tibial artery. Filling defects within the proximal peroneal artery and proximal posterior tibial artery. A below-knee runoff arteriogram was performed and this demonstrates patent mid and distal posterior tibial artery. Occlusion of the anterior tibial artery all the way to the foot. Occluded peroneal artery. A 90 cm Unifuse catheter with side holes along 40 cm was then advanced over the wire under fluoroscopy guidance into the right superficial femoral artery. The wire was removed and the inner stylet of the infusion catheter was secured in place. The catheter was connected to TPA infusion of 50 ml per hour delivering 0.5 mg of TPA per hour and the groin vascular sheath was connected to heparin 500 units per hour. Patient tolerated the procedure well and was transferred to ICU in stable condition for 24 hour thrombolysis. Complications: None. Estimated blood loss: Less than 5 ml. Impression: 1. Right leg angiogram demonstrates complete thrombosis of the superficial femoral artery with distal reconstitution of the popliteal artery. 2. Below-knee runoff demonstrates occlusion of the anterior tibial artery and filling defects in the peroneal and proximal posterior tibial artery. 3. Successful infusion catheter placement in the right superficial femoral artery for target thrombolysis. Patient to return to IR for thrombolysis check next day. Thank you for this referral. Electronically Signed by Arielle Layton MD 03/18/2019 11:15 A
--- NOTE | 2019-03-18 11:26 | REP ---
Chest x-ray: Two views. History: Pleural effusion. Comparison study: March 17, 2019. Findings: Right chest catheter remains in place, unchanged. There is an air-fluid level projecting in the right base posteriorly which demonstrates a small quantity of pleural fluid and air. This is somewhat increased from the March 17 prior study. There is a little more air adjacent to the chest tube in the right lower lateral chest wall. There is a tiny apical pneumothorax visible as well. These findings are increased from the March 16, 2019 study. There are multiple right-sided rib fractures again noted. Subcutaneous emphysema is noted in the extrathoracic soft tissues on the right as before. There is blunting of the left lateral pleural angle unchanged. Mildly prominent heart is seen. Impression: Right chest tube in place. Right-sided hydropneumothorax. Some increase in the amount of pleural fluid at the right base. Blunting of the left pleural angle is also seen. Electronically Signed by Tyrell Self MD 03/18/2019 12:16 P
--- NOTE | 2019-03-18 11:27 | REP ---
IR right leg angiogram and thrombolysis check. Clinical Information: Cold right leg. Pulseless. Physician: Dr Layton.Procedure: The patient was advised of the benefits, risks, and alternatives of the procedure and informed consent was obtained.A time out was performed with verification of the patient's name, MRN, site of procedure, and type of procedure to be performed. The patient was positioned in the supine position on the angiographic table. The site was prepped and draped in the usual sterile fashion.Moderate sedation was not required. The physician spent 45 minutes of continuous zpud-ik-vegp time with the patient. A nuisance wildlife control operator radiograph reveals infusion catheter in place. The inner wire of the infusion catheter was removed and a guide wire was advanced through the infusion catheter into the popliteal artery, under fluoroscopy guidance. The catheter was removed over the wire. A right leg angiogram was performed through the left groin access sheath. This demonstrates persistent occlusion of the right superficial femoral artery with minimal recanalization proximally. An angiogram further down the leg was performed and this demonstrates reconstitution of the mid popliteal artery. A below-knee runoff arteriogram was performed and this demonstrates patent posterior tibial artery. Small but patent anterior tibial artery. A new 135 cm Unifuse catheter was advanced over the wire under fluoroscopy guidance into the right superficial femoral artery. The catheter was connected to TPA to run at 50 ml per our equal to 0.5 mg TPA per hour and the groin sheath was connected to heparin 500 units per hour. A sterile dressing was applied to the left groin site. Patient tolerated the procedure well and was transferred to ICU in stable condition. Complications: None. Estimated blood loss: Less than 5 ml. Impression: 1. Right leg angiogram demonstrates persistent occlusion of the right superficial femoral artery and minimal proximal recanalization . 2. Successful exchange of infusion catheter; for another 24 hours of thrombolysis. Thank you for this referral. Electronically Signed by Arielle Layton MD 03/18/2019 11:25 A
--- NOTE | 2019-03-18 11:33 | REP ---
IR groin access sheath exchange under fluoroscopy guidance for leaking. IR infusion catheter exchange under fluoroscopy guidance. Clinical Information: Cold right leg. Pulseless. Undergoing right leg arterial thrombolysis but leaking at the groin sheath. Defective valve. Needs sheath exchange. Physician: Dr Layton.Procedure: The patient was advised of the benefits, risks, and alternatives of the procedure and informed consent was obtained.A time out was performed with verification of the patient's name, MRN, site of procedure, and type of procedure to be performed. The patient was positioned in the supine position on the angiographic table. The site was prepped and draped in the usual sterile fashion.Moderate sedation was not required. The physician spent 20 minutes of continuous knjk-in-fuzo time with the patient. A recycling operations manager radiograph reveals infusion catheter in place. The inner stylet of the infusion catheter was removed and a wire was advanced through the infusion catheter into the popliteal artery under fluoroscopy guidance. Infusion catheter was removed over the wire. The 6-Yakut groin sheath was removed over the wire. A new 6-[place]akut 45 cm sheath was advanced over the wire under fluoroscopy guidance into the right common femoral artery. The inner stiffener was removed. A new 90 cm Unifuse catheter was advanced over the wire under fluoroscopy guidance into the right superficial femoral artery. The wire was removed and the stylet was secured in position. A sterile dressing was applied to the site. Patient tolerated the procedure well and was transferred to ICU in stable condition for continuation of thrombolysis. Complications: None. Estimated blood loss: Less than 5 ml. Impression: 1. Persistent leaking at groin vascular sheath valve site. 2. Successful exchange of vascular sheath and infusion catheter under fluoroscopy guidance. Thank you for this referral. Electronically Signed by Arielle Layton MD 03/18/2019 11:31 A
--- NOTE | 2019-03-18 11:54 | REP ---
IR right leg angiogram. IR right superficial femoral artery angioplasty. IR right popliteal artery angioplasty. IR super selective right anterior tibial artery catheterization and recanalization. IR right anterior tibial artery angioplasty. IR super selective right posterior tibial artery catheterization and recanalization. IR right posterior tibial artery angioplasty. Clinical Information: Right cold leg. Pulseless. Acute thrombosis. Physician: Dr Layton.Procedure: The patient was advised of the benefits, risks, and alternatives of the procedure and informed consent was obtained.A time out was performed with verification of the patient's name, MRN, site of procedure, and type of procedure to be performed. The patient was positioned in the supine position on the angiographic table. The site was prepped and draped in the usual sterile fashion.Moderate sedation was not performed due to patient's respiratory status but Fentanyl was administered for analgesia. The physician spent 120 minutes of continuous zouj-qo-gsee time with the patient. A barrel assembler helper radiograph reveals infusion catheter in expected location. The inner metal of the infusion catheter was removed. A wire was advanced through the infusion catheter under fluoroscopy guidance, into the popliteal artery and the catheter was removed over the wire. A right leg angiogram was performed through the sheath. This demonstrates recanalization of the right superficial femoral artery with irregularity. An angiogram further down the leg was performed through the same sheath and this demonstrates recanalization of the mid and distal superficial femoral artery. Patent popliteal artery. A below-knee runoff was performed and this demonstrates occlusion of the peroneal artery. There is slow flow within the posterior tibial and anterior tibial arteries. An 8 x 200 mm [place] angioplasty balloon was advanced over the wire under fluoroscopy guidance into the right common femoral and superficial femoral artery. This was used to perform angioplasty of the common femoral and proximal superficial femoral artery. The balloon was deflated and removed over the wire under fluoroscopy guidance. A 7 x 200 mm [place] balloon was then advanced over the wire under fluoroscopy guidance and used to angioplasty the proximal, mid and distal superficial femoral artery. The balloon was deflated and removed over the wire. A 5 x 200 mm angioplasty balloon was advanced over the wire under fluoroscopy guidance and used to angioplasty the distal superficial femoral artery and the popliteal artery. The balloon was deflated. The wire in conjunction with the catheter was used to catheterize the right anterior tibial artery under fluoroscopy guidance. The balloon catheter was removed over the wire. A 2 x 220 mm osmani balloon catheter advanced over the wire under fluoroscopy guidance and used to angioplasty the right anterior tibial artery. The balloon was deflated and removed over the wire. A follow-up arteriogram was performed through the groin sheath and this demonstrates improved flow within the right superficial femoral artery, proximal mid and distal. A follow-up angiogram further down the leg was performed this demonstrates improved flow within the right popliteal artery. A below-knee runoff was performed and this demonstrates occlusion of the posterior tibial artery and partial occlusion of the anterior tibial artery. There is distal reconstitution of the posterior tibial artery through collaterals. The osmani balloon catheter in conjunction with a micro wire was used under fluoroscopy guidance to catheterize the right posterior tibial artery. After successful super selective catheterization of the distal right posterior tibial artery an arteriogram was performed. This demonstrates flow in the mid and distal right posterior tibial artery but cutoff at the ankle. There are collaterals filling from the posterior tibial artery which supply the foot. A 2 x 220 mm osmani balloon was used to angioplasty the posterior tibial artery along it's entire length. The balloon was deflated and removed over the wire back to the popliteal artery. A follow-up arteriogram was performed and this demonstrates persistent cutoff of the distal popliteal artery and no filling of the anterior tibial artery. 1 mg of TPA was administered from this location. This was followed with 100 mcg of nitroglycerin. After waiting 10 minutes and aspirating the catheter, a follow-up arteriogram was performed. This demonstrates a small filling defect and/or spasm in the proximal posterior tibial artery with good flow in the entire posterior tibial artery. There is filling defect and/or spasm in the anterior tibial artery with filling of the mid and distal anterior tibial artery. The osmani balloon catheter was used to selectively catheterize the anterior tibial artery and local TPA and nitroglycerin was administered in this location. An arteriogram further down the leg was performed and this demonstrates good flow in the mid and distal posterior tibial artery but cutoff of the vessel at the ankle. The micro catheter micro wire was advanced under fluoroscopy guidance into the posterior tibial artery and TPA was administered in the distal posterior tibial artery. Local nitroglycerin was also administered. Given vascular spasm and no mechanical thrombectomy device level, I elected to abort the procedure at this time. Patient tolerated the procedure well and was transferred to ICU in stable condition. Complications: None. Estimated blood loss: Less than 5 ml. Impression: 1. Right leg angiogram demonstrates recanalization of the superficial femoral artery. 2. Successful angioplasty of the right common femoral, superficial femoral, popliteal artery. 3. Successful angioplasty of right anterior tibial and posterior tibial arteries. 4. Successful local administration of TPA and nitroglycerin in the distal anterior and posterior tibial arteries. No mechanical thrombectomy device available, therefore no further intervention possible at this time for distal emboli. Continue neurovascular checks, peripheral heparin and reassess. Thank you for this referral. Electronically Signed by Arielle Layton MD 03/18/2019 11:52 A
[2019-03-18 12:00] VITALS: BP 134/63
--- NOTE | 2019-03-18 12:17 | REP ---
IR right leg angiogram. IR right superficial femoral artery stenting. IR right superficial femoral artery angioplasty. IR right popliteal artery angioplasty. IR right anterior tibial artery recanalization into foot. IR right anterior tibial artery angioplasty. IR right posterior tibial artery recanalization into the foot. IR right posterior tibial artery angioplasty. Clinical Information: Cold right leg. Pulseless. Physician: Dr Layton.Procedure: The patient was advised of the benefits, risks, and alternatives of the procedure and informed consent was obtained.A time out was performed with verification of the patient's name, MRN, site of procedure, and type of procedure to be performed. The patient was positioned in the supine position on the angiographic table. The site was prepped and draped in the usual sterile fashion.Moderate sedation was not performed due to respiratory status but Fentanyl was administered for analgesia. The physician spent 120 minutes of continuous aphy-mz-[id number] time with the patient. A pen tender radiograph reveals no gross abnormality. The left femoral artery was accessed with a micropuncture kit. A Capsule.fm wire was advanced into the aorta. The micropuncture sheath was exchanged over the wire for a a 6-Indian vascular sheath. A 4-Indian flush catheter was advanced over the wire and used to catheterize the abdominal aorta. The catheter in conjunction with the wire was used under fluoroscopy guidance to gain up and over access into the right common femoral artery. The catheter was removed over the wire and a 6-Indian vascular sheath was advanced over the wire, under fluoroscopy guidance, into the right common femoral artery. A right leg angiogram was performed which demonstrates preserved flow in the right superficial femoral artery with mild irregularity. An angiogram further down the leg was performed and this demonstrates preserved flow in the mid and distal superficial femoral artery and flow within the popliteal artery. There is a filling defect in the mid popliteal artery. There is a filling defect at the origin of the posterior tibial artery. A below-knee runoff angiogram was performed and this demonstrates flow in the anterior tibial artery with cutoff at the ankle. There is flow within the posterior tibial artery with cutoff at the ankle. A Glidewire in conjunction with a glide cath was advanced through the vascular sheath and used to catheterize the superficial femoral artery. The wire was advanced under fluoroscopy guidance into the popliteal artery. The glide cath was removed over the wire. A 7 x 120 mm Devi stent was advanced under fluoroscopy guidance over the wire and deployed in the proximal superficial femoral artery. The deployment device was removed. Another 7 x 120 mm Devi stent was advanced over the wire under fluoroscopy guidance and used to stent the mid right superficial femoral artery, overlapping the proximal stent. The deployment device was removed over the wire. A third 7 x 120 mm Devi stent was advanced over the wire under fluoroscopy guidance and used to stent the distal superficial femoral artery, overlapping the mid superficial femoral artery stent. A 7 x 200 mm De Lancey balloon was advanced over the wire under fluoroscopy guidance and used to angioplasty the proximal, mid and distal superficial femoral artery. The balloon was deflated and removed over the wire. A 5 x 200 mm of De Lancey balloon was advanced over the wire under fluoroscopy guidance and used to angioplasty the distal superficial femoral artery and the popliteal artery. The balloon was deflated and removed over the wire. A glide cath was advanced over the wire in conjunction with a Glidewire was used to catheterize the posterior tibial artery. Local TPA was administered and manual aspiration was performed at the popliteal/posterior tibial junction to aspirate the clot. A follow-up arteriogram was performed through the catheter in the popliteal artery and this demonstrates good forward flow and no clot in the mid popliteal artery. However there is persistent filling defect at the popliteal posterior tibial artery junction. The glide cath was advanced under fluoroscopy guidance into the posterior tibial artery and further aspiration was performed. The wire in conjunction with the glide cath was then advanced into the posterior tibial artery all the way into the foot. The catheter was advanced over the wire and used to catheterize the distal posterior tibial artery. A 3 x 100 mm De Lancey balloon was then advanced over the wire under fluoroscopy guidance and used to angioplasty the proximal, mid and distal posterior tibial artery. The angioplasty balloon was deflated and removed over the wire. A micro catheter was advanced over the wire under fluoroscopy guidance into the distal posterior tibial artery and used to super selectively catheterize the third and fourth order branches of the posterior tibial artery, coursing into the right foot. Local TPA and nitroglycerin was administered into the posterior tibial artery branches going into the right foot. The wire in conjunction with the micro catheter was used to recanalized the distal posterior tibial artery all the way into the foot. The wire was removed. A follow-up arteriogram was performed through the catheter in the distal posterior tibial artery and this demonstrates forward flow in the distal posterior tibial artery and into the right foot. The catheter was removed over the wire. A follow-up arteriogram was performed through the groin sheath and this demonstrates good forward flow within the right superficial femoral artery, proximal, mid and distal with no extravasation and no cutoff. An angiogram further down the leg demonstrates good flow in the popliteal artery and flow in the posterior tibial artery. There is persistent spasm and/or thrombus at the junction of the popliteal artery with posterior tibial artery. The anterior tibial artery is occluded proximally. A micro catheter and micro wire were advanced through the diagnostic catheter and used to selectively catheterize the anterior tibial artery. The catheter was aspirated to retrieve clot. The micro catheter and micro wire in conjunction were used to super selectively catheterize the mid and distal anterior tibial artery. An arteriogram was formed through the micro catheter and this demonstrates forward flow in the distal anterior tibial artery into the right foot. A 3 x 100 mm De Lancey balloon was then advanced over the wire under fluoroscopy guidance and used to angioplasty the proximal, mid and distal anterior tibial artery. A follow-up arteriogram was then performed and this demonstrates flow in the anterior tibial artery, mid and distal with no extravasation or cutoff. There is patchy spasm in the vessel. The catheter was retracted back to the popliteal artery and a follow-up arteriogram was performed. This demonstrates improved flow from the popliteal artery into the anterior tibial and posterior tibial artery. Catheter wire and sheath were removed, pressure held and hemostasis achieved. A sterile dressing was applied to the site. Patient tolerated the procedure well and was transferred to ICU in stable condition. Complications: None. Estimated blood loss: Less than 5 ml. Impression: 1. Right leg angiogram demonstrates a filling defect in the mid popliteal artery, filling defect at the trifurcation of the popliteal artery and cutoff in the posterior tibial artery at the ankle. 2. Successful aspiration of thrombus from the popliteal artery. 3. Successful recanalization of the anterior tibial artery. 4. Successful anterior tibial artery angioplasty. 5. Successful recanalization of the posterior tibial artery all the way into the foot and angioplasty. 6. Successful aspiration of thrombus from the popliteal artery trifurcation point. 7. Successful superficial femoral artery stenting. 8. Patient to continue on aspirin and Plavix and follow up in IR clinic in 1 month time. Thank you this referral. Electronically Signed by Arielle Layton MD 03/18/2019 12:16 P
[2019-03-18] MEDS ORDERED: RIVAROXABAN 15 MG TAB (XARELTO) PO ONE (12:30)
[2019-03-18] MEDS ORDERED: SLF 3 ML SYR IV PRN (13:00)
[2019-03-18] MEDS: CLOPIDOGREL 75 MG TAB PO SCH (13:06)
[2019-03-18] MEDS: SLF 3 ML SYR IV SCH ×2 (13:06→20:31)
[2019-03-18] MEDS: AUGMENTIN 875 MG TAB PO SCH ×2 (13:13→20:30)
--- NOTE | 2019-03-18 15:52 | IPNPDOC ---
Text Note Date of Service The patient was seen on 03/18/19. NOTE Objective: Patient has pulsation on the right leg, foot is warm, patient doesn't have any pain in his right extremity. Patient denies fever, chills, diarrhea or dysuria General: NAD HEENT: PERRLA, EOMI, no JVD Lungs: Bilateral scattered rhonchi and rales. Chest tube in place, serosanguineous discharge CV: S1-S2, tachycardic rate 150 Abdomen: nontender, nondistended Extremities: +3 L tibial edema, +4 tibial edema on the right side, no pulse on the right dorsalis pedis Neuro: Nonfocal, cranial nerves from 2-12 intact Patient is 63 years old male without significant past medical history presented hospital with increased shortness of breath. Patient stated that in February he has been treated with doxycycline and prednisone for pneumonia. However for past few days has increased shortness of breath and has leg swelling. In emergency room patient was found to have on CTA significant bilateral pulmonary emboli, large right pleural effusion and small left pleural effusion along with elements of partial collapse, ground-glass infiltrates, atelectasis, cardiomegaly. P atient was placed on heparin drip. On 03/18/19 Xarelto started Pt was found to have right common iliac artery demonstrates mild to moderate stenosis proximally. Severe stenosis distal right common femoral artery with occlusion of the right superficial femoral artery at its origin. Distal right superficial femoral artery is reconstituted by small collateral profunda vessels. Thrombolysis successfully was done by Dr. Layton. Plavix was added. (1) Sepsis Patient has leukocytosis, tachycardia and dyspnea Patient has recently had pneumonia On presentation he had large right pleural effusion and small left pleural effusion along with elements of partial collapse, ground-glass infiltrates, and atelectasis I started broad-spectrum antibiotics vancomycin and Zosyn. Sputum culture came back positive for haemophilus influenza. Antibiotics were switched to Augmentin Chest tube placed by Dr. Tran, he recommended to continue chest tube suction continue his chest tube until the fluid stops draining. There is suspicion for pulmonary infarcts. The post expansion compression atelectasis is now resolved. His chest tube does not have an air leak, although it is posterior. [employer] will change the chest to to waterseal. 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 03/18/19 Valsartran added. Pt is candidate for Entresto. Cardiology team follows him Pulmonary embolism Unprovoked pulmonary emboli started Xarelto today There is concern for underlying malignancy, patient lost 20 pounds for past year Patient will need to repeat CT scan of the chest and CT of abdomen and pelvis after resolution of pulmonary emboli and infiltrates Mitral and aortic valve disorder (nonrheumatic)/insufficiency these valvular lesions are contributing to his congested state Hypertension Blood pressures under control for now Alcohol abuse Not in alcohol withdrawal Social service on board Right distal leg arterial insufficiency IR started on 03/16/19 successful SFA thrombolysis, SFA, popliteal, anterior tibial and posterior tibial artery angioplasty. Patient has pulse on the right dorsalis pedis artery after 3 treatment of thrombolysis. Follow-up with interventional radiologist after discharge. Plavix added per IR rec DVT Unprovoked That is suspicious for malignancy Continue anticoagulation PO Exudative effusion Pleural fluid analysis positive for exudate most likely secondary to PE and infection however there is possibility for malignancy Await cytology VS,Dilan, I+O VS, Dilan, I+O Laboratory Tests 03/18/19 09:12 Vital Signs Date Time Temp Pulse Resp B/P (MAP) Pulse Ox O2 Delivery O2 Flow Rate FiO2 03/18/19 12:00 99.4 100 18 134/63 (86) 96 Room Air 03/17/19 18:00 3 I&O- Last 24 Hours up to 6 AM 03/18/19 06:00 Intake Total 1913 ml Output Total 5247 ml Balance -3334 ml JONAH ALFARO DO Mar 18, 2019 15:52
[2019-03-18 16:00] VITALS: BP 116/70
[2019-03-18] MEDS: RIVAROXABAN 15 MG TAB (XARELTO) PO SCH (17:52)
[2019-03-18 19:11] LABS: MAGNESIUM LEVEL 1.5 MG/DL (1.8-2.4); POTASSIUM SERUM 3.5 MEQ/L (3.5-5.1)
[2019-03-18] MEDS: MAG SULF 1GM/100ML (MAG RUN) 1 GM in IV 1 EA IV SCH ×2 (20:31→21:20)
[2019-03-18] MEDS ORDERED: VALSARTAN 40MG TABLET (DIOVAN) PO SCH (21:00)
[2019-03-18 23:59] VITALS: BP 133/69
[2019-03-19] VITALS (7 sets, daily range): BP systolic 118–135; BP diastolic 59–79
[2019-03-19 00:06] LABS: BODY FLUID CULTURE Not Indicated (.); ORGANISM ID Not indicated. (.); SPECIMEN SOURCE Urine (.); URINE STREP PNEUMONIAE ANTIGEN Negative (Negative)
[2019-03-19] MEDS: LEVALBUTEROL 1.25 MG/0.5 ML CONCENTRATE NEB NEB SCH ×4 (03:22→20:27)
[2019-03-19 05:10] LABS: BASO % 0.3 % (0.0-1.0); EOS # 0.2 10^3/uL (0.0-0.5); HEMATOCRIT 36.2 % (42.0-52.0); LYMPH # 1.3 10^3/uL (1.5-5.0); LYMPH % 12.6 % (24.0-44.0); MEAN CORPUSCULAR HEMOGLOBIN 32.3 pg (27.0-33.0); MEAN CORPUSCULAR HGB CONC 33.1 g/dl (32.0-36.5); MEAN CORPUSCULAR VOLUME 97.6 fl (80.0-96.0); MONO # 0.9 10^3/uL (0.0-0.8); NEUTROPHILS # 8.2 10^3/uL (1.5-8.5); NEUTROPHILS % 76.8 % (36.0-66.0); PLATELET COUNT, AUTOMATED 121 10^3/uL (150-450); RED BLOOD COUNT 3.71 10^6/uL (4.30-6.10); WHITE BLOOD COUNT 10.6 10^3/uL (4.0-10.0)
[2019-03-19 05:26] LABS: BLOOD UREA NITROGEN 14 MG/DL (7-18); CALCIUM LEVEL 7.4 MG/DL (8.8-10.2); CARBON DIOXIDE LEVEL 31 MEQ/L (21-32); CHLORIDE LEVEL 103 MEQ/L (98-107); CREATININE FOR GFR 0.65 MG/DL (0.70-1.30); GLOMERULAR FILTRATION RATE > 60.0 (>49); GLUCOSE, FASTING 101 MG/DL (70-100); MAGNESIUM LEVEL 1.8 MG/DL (1.8-2.4); POTASSIUM SERUM 3.6 MEQ/L (3.5-5.1); SODIUM LEVEL 139 MEQ/L (136-145)
[2019-03-19] MEDS: SLF 3 ML SYR IV SCH ×3 (06:42→22:32)
[2019-03-19 07:54] LABS: FREE T4 0.95 NG/DL (0.76-1.46)
[2019-03-19] MEDS: DOCUSATE SODIUM 100 MG CAP PO SCH ×2 (08:20→20:18)
[2019-03-19] MEDS: MOM 30ML SUSPENSION UDC PO SCH (08:20)
--- NOTE | 2019-03-19 08:21 | REP ---
Chest x-ray: Two views. History: Pleural effusion. Comparison chest x-ray: March 18, 2019. Findings: Multiple right-sided rib fractures are again seen. Right chest tube remains in place. A right-sided hydropneumothorax is noted. There is less pleural air in the right base than there was on yesterday's radiograph. A tiny sliver of pleural air is seen at the apex on the right. There is blunting of both pleural angles indicating bilateral effusions. No new infiltrate. Extrathoracic soft tissue air is seen along the right chest wall as before. Electronically Signed by Tyrell Self MD 03/19/2019 08:12 A
[2019-03-19] MEDS: AUGMENTIN 875 MG TAB PO SCH ×2 (08:22→20:17)
[2019-03-19] MEDS: ASPIRIN 81 MG ENTERIC TAB PO SCH (08:22)
[2019-03-19] MEDS: RIVAROXABAN 15 MG TAB (XARELTO) PO SCH ×2 (08:22→17:26)
[2019-03-19] MEDS: PANTOPRAZOLE 40MG TAB (PROTONIX) PO SCH (08:22)
[2019-03-19] MEDS: FOLIC ACID 1 MG TAB PO SCH (08:22)
[2019-03-19] MEDS: CLOPIDOGREL 75 MG TAB PO SCH (08:22)
[2019-03-19] MEDS: DIGOXIN 0.25 MG TAB PO SCH (08:22)
[2019-03-19] MEDS: MULTIVITAMINS/MINERALS THERAP 1 TAB PO SCH (08:22)
[2019-03-19] MEDS: METOPROLOL SUCC (TopROL XL) 100MG *XL* TAB PO SCH (08:23)
[2019-03-19] MEDS: MAGNESIUM CHLORIDE 64 MG TABCR (SLO MAG) PO SCH (08:23)
--- NOTE | 2019-03-19 08:48 | IPN ---
DATE OF SERVICE: 03/19/2019 Mr. Gee is a 63-year-old man who presented with multiple medical problems including pulmonary embolism, atrial flutter with rapid ventricular response (RVR), cardiomyopathy, probably embolization to right lower extremity. Since yesterday, he is feeling better. When I entered the room, he was eating breakfast. He denies any chest pain. The chest tube is draining actually quite very little. Dyspnea is improved, as well. He looks overall much more upbeat. Vital signs: Blood pressure 130/72, heart rate has been between 80 and 120. He remains in atrial flutter. He had one ventricular triplet last night. Afebrile, saturation 98% on room air. Fluid balance yesterday recorded negative 1800. He had about 2500 mL of urine output and about 206 mL drained from the chest tube. Weight is unchanged. He is alert and oriented and appropriate. Jugular venous pressure (JVP) does not look high. Lungs: Are somewhat diminished over both bases. I do not appreciate wheezing, crackles. The chest tube is still in the right chest. Heart examination reveals irregular rhythm. I do not appreciate any zari gallop or murmur. Abdomen is soft. There is still prominent peripheral edema on both lower extremities. Peripheral pulses are difficult to feel, but I think it is to a great degree due to underlying edema. LABORATORIES: Hemoglobin 12, hematocrit 36, platelet count 121,000, WBC count 10.6. Basic metabolic panel: Sodium 139, potassium 3.6, BUN 14, creatinine 0.7, glucose 101, magnesium 1.8. ASSESSMENT AND PLAN: Mr. Gee is a 63-year-old man without significant medical care for decades. He presented with multitude of medical problems that include pulmonary embolism as probably the dominant diagnosis. At this point, he was transitioned from heparin to Xarelto 15 mg twice a day. According to pulmonary embolization protocol, I gave him aspirin yesterday, and he was put also on Plavix. I am little bit nervous about triple therapy. At this point, I would advocate to discontinue the Plavix unless insisted by vascular surgery. The bleeding risk is significant. The second issue is that of atrial flutter with RVR. He has been on Toprol XL 200 plus digoxin. I am going to obtain digoxin level tomorrow, as his dosing is fairly significant. As far as congestive heart failure is concerned, it seems to be that he is self-diuresing. Consequently, I do not believe that we have to manipulate the doses of diuretics and give him additional Lasix. I think that with slowing down his heart rate, a better perfusion in his lungs, he seems to be normalizing. We will follow him clinically. Because his blood pressure has been holding steady, I am going to advance the dose of valsartan.
--- NOTE | 2019-03-19 10:57 | CCN ---
DATE OF SERVICE: 03/19/2019 Pulmonary team is managing this patient's chest tube. Yesterday, the chest tube was changed to waterseal with plans for clamping today if he is doing well. He has been doing well with no issues since changed to waterseal. He states his breathing has been good. He is afebrile. He denies any new issues. PHYSICAL EXAMINATION: Temperature 98.8, pulse 109, respiratory rate 20, blood pressure is 130/72, pulse oximetry 98% on room air. General: The patient his alert and oriented times three. He speaks in complete sentences. He is sitting on the bed. HEENT: Head is normocephalic, atraumatic. Moist mucous membranes. Neck: Neck is supple. No cervical lymphadenopathy. No jugular venous distention (JVD). Trachea is midline. Pulmonary: Clear to auscultation bilaterally. No accessory muscle use. Some right-sided crepitations. Heart: Regular rate and rhythm. S1 and S2. No murmurs. Abdomen: Positive bowel sounds, soft, nontender. No rebound or guarding. Extremities: 2-3+ bilateral lower extremity pitting edema. No calf tenderness. Skin: Skin is warm and dry. Chest x-ray shows chest tube on the right. There are right-sided multiple rib fractures. There is a right hydropneumothorax. There are small slivers of air at the right apex. There is blunting of the pleural angles bilaterally. LABORATORIES: WBC 10.6, hemoglobin 12.0, hematocrit 36.2, platelets 121. Sodium 139, potassium 3.6, chloride 103, carbon dioxide 31, BUN 14, creatinine 0.65, glucose 101, calcium 7.4, magnesium 1.8. ASSESSMENT AND PLAN: 1. Pleural effusion with chest tube placement. The patient's chest tube will be clamped today. Will see how he does tomorrow and consider discontinuing the chest tube if he is doing well but will reevaluate this tomorrow. 2. Pneumonia. The patient's imaging has suggested pneumonia. A sputum culture did grow Haemophilus influenzae. He had been on Zosyn and vancomycin but was changed to Augmentin yesterday. His white count is continuing to trend down. He is afebrile. 3. Pulmonary embolism and deep venous thrombosis (DVT). The patient is on Xarelto. Primary team is following him for pulmonary embolism (PE) and DVT. MONI
--- NOTE | 2019-03-19 18:28 | IPNPDOC ---
Text Note Date of Service The patient was seen on 03/19/19. NOTE Subjective: -Feels better this morning, reporting that his legs still feel heavy but otherwise without fevers, chills, diarrhea or dysuria Objective: General: NAD HEENT: PERRLA, EOMI Neck: no JVD Lungs: No zari crackles or wheezing, moving air well, chest tube in R chest in ferolateral chest, serosanguineous fluid CV: RRR, no mrg Abdomen: Normoactive, non distended, nontender Extremities: Massive +3LE edema bilaterally, otherwise warm feet Neuro: Nonfocal, cranial nerves from 2-12 intact and moving all 4 extremities. Labs: Reviewed WBC 10.6 Hgb 12 Hct 36.2 Cr 0.65 K 3.6 Mag 1.8 Assessment: 63 years old without much contact with the healthcare system who presented to the hospital with increased shortness of breath and LE swelling and found to have bilateral pulmonary emboli, large right pleural effusion and small left pleural effusion along with elements of partial collapse, ground-glass infiltrates and cardiomegaly now on augmentin for H.flu PNA, s/p heparin gtt now on eliquis and with a R sided chest tube now to waterseal after drainage of an exudative effusion with pending cytology, with course c/b noted right common iliac artery stenosis with occlusion of the right superficial femoral artery at its origin s/p thrombolysis now on plavix, as well as AFlutter w/ RVR in the setting of bilateral PEs and PNA now s/p amio and on metoprolol and digoxin. Sepsis 2/2 Hflu PNA: on augmentin, doing much better, with resolved sepsi. On presentation he had large right pleural effusion and small left pleural effusion along with elements of partial collapse, ground-glass infiltrates, and atelectasis, with leukocytosis, tachycardia and dyspnea -Was initially placed on vancomycin and Zosyn--> and switched to Augmentin for H.flu, to treat for a full 7d course -continue supportive nebs and supplemental O2 -Follow up blood cultures Bilateral pleural effusions: Etiology still under investigation: infectious vs. possible malignancy, given its exudative nature, unlikely to be cardiac -f/u cytology -s/p chest tube by Dr. Tran, he recommended to continue chest tube suction continue his chest tube until the fluid stops draining. There is suspicion for pulmonary infarcts. The post expansion compression atelectasis is now resolved. His chest tube does not have an air leak, although it is posterior. Now switched to waterseal and clamped with tentative plan do dc tomorrow Atrial flutter with rapid ventricular response: Resolved. Most likely secondary to pulmonary emboli and infection. -Heart rate now within normal range -Continue metoprolol and digoxin -On Xarelto and tolerating well -Cardiology concerned about triple therapy since he is on ASA, xarelto and plavix, will discuss with vascular about risk vs. benefit? Cardiology suggesting discontinuing the plavix if vascular allowed. 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 -03/18/19 started Valsartran, increased dose by Dr. Perry today -On metop -Is producing robust UOP, will let him autodiurese as per cardiology recs -Appreciate Cardiology recs Pulmonary embolism: Unprovoked pulmonary emboli -continue Xarelto -There is concern for underlying malignancy, patient lost 20 pounds for past ye ar, has bilateral exudative effusions and unprovoked PEs --> to follow up with PCP outpatient. -Will need to repeat CT scan of the chest and CT of abdomen and pelvis after resolution of pulmonary emboli and infiltrates Right distal leg arterial insufficiency: -IR started on 03/16/19 successful SFA thrombolysis, SFA, popliteal, anterior tibial and posterior tibial artery angioplasty. -Patient has pulse on the right dorsalis pedis artery after 3 treatment of thrombolysis. -Follow-up with interventional radiologist after discharge. -Plavix added per IR rec --> Cardiology concerned about triple therapy since he is on ASA, xarelto and plavix, will discuss with vascular. Cardiology suggesting discontinuing the plavix if vascular agreeable. Hypertension -Blood pressures under control for now Alcohol use disorder -Not in alcohol withdrawal -Social service on board Dilan RETANA, I+O VS, Dilan, I+O Laboratory Tests 03/18/19 18:36 03/19/19 04:53 Vital Signs Date Time Temp Pulse Resp B/P (MAP) Pulse Ox O2 Delivery O2 Flow Rate FiO2 03/19/19 16:00 99.2 52 18 123/59 (80) 96 03/19/19 08:00 Room Air 03/17/19 18:00 3 I&O- Last 24 Hours up to 6 AM 03/19/19 06:00 Intake Total 1020 ml Output Total 2610 ml Balance -1590 ml YVETTE ABERNATHY MD Mar 19, 2019 18:28
[2019-03-19] MEDS: PERCOCET 5MG/325MG TAB PO PRN (20:18)
[2019-03-19] MEDS ORDERED: VALSARTAN 80 MG TAB (DIOVAN) PO SCH (21:00)
[2019-03-20] MEDS: LEVALBUTEROL 1.25 MG/0.5 ML CONCENTRATE NEB NEB SCH ×4 (02:00→21:02)
[2019-03-20 04:00] VITALS: BP 138/78
[2019-03-20] MEDS: SLF 3 ML SYR IV SCH ×3 (05:13→22:36)
[2019-03-20 05:58] LABS: BASO % 0.3 % (0.0-1.0); EOS # 0.3 10^3/uL (0.0-0.5); EOS % 3.1 % (0.0-3.0); HEMATOCRIT 34.8 % (42.0-52.0); HEMOGLOBIN 11.6 g/dl (13.5-17.5); LYMPH # 1.3 10^3/uL (1.5-5.0); LYMPH % 14.1 % (24.0-44.0); MEAN CORPUSCULAR HEMOGLOBIN 32.3 pg (27.0-33.0); MEAN CORPUSCULAR HGB CONC 33.3 g/dl (32.0-36.5); MEAN CORPUSCULAR VOLUME 96.9 fl (80.0-96.0); MONO # 0.9 10^3/uL (0.0-0.8); MONO % 9.3 % (0.0-5.0); NEUTROPHILS # 6.7 10^3/uL (1.5-8.5); NEUTROPHILS % 72.9 % (36.0-66.0); PLATELET COUNT, AUTOMATED 135 10^3/uL (150-450); RED BLOOD COUNT 3.59 10^6/uL (4.30-6.10); WHITE BLOOD COUNT 9.3 10^3/uL (4.0-10.0)
[2019-03-20 06:22] LABS: BLOOD UREA NITROGEN 16 MG/DL (7-18); CALCIUM LEVEL 7.7 MG/DL (8.8-10.2); CARBON DIOXIDE LEVEL 31 MEQ/L (21-32); CHLORIDE LEVEL 106 MEQ/L (98-107); CREATININE FOR GFR 0.67 MG/DL (0.70-1.30); GLOMERULAR FILTRATION RATE > 60.0 (>49); GLUCOSE, FASTING 89 MG/DL (70-100); MAGNESIUM LEVEL 1.6 MG/DL (1.8-2.4); POTASSIUM SERUM 3.9 MEQ/L (3.5-5.1); SODIUM LEVEL 140 MEQ/L (136-145)
[2019-03-20 08:00] VITALS: BP 122/68
[2019-03-20] MEDS ORDERED: MAG SULF 1GM/100ML (MAG RUN) 1 GM in IV 1 EA IV ONE (08:00)
--- NOTE | 2019-03-20 08:03 | REP ---
Chest x-ray: Two views. History: Pleural effusion. Comparison chest x-ray: March 19, 2019. Findings: The pleural angles are blunted bilaterally, right a little more so than left unchanged from yesterday's radiograph. There is a right chest tube in place and a tiny amount of air is seen along the minor fissure and at the apex in the pleural space on the right. Subcutaneous emphysema is seen to be decreasing. Multiple right-sided rib fractures. No new infiltrate. Electronically Signed by Tyrell Self MD 03/20/2019 07:55 A
[2019-03-20] MEDS: PANTOPRAZOLE 40MG TAB (PROTONIX) PO SCH (08:28)
[2019-03-20] MEDS: MAGNESIUM CHLORIDE 64 MG TABCR (SLO MAG) PO SCH (08:28)
[2019-03-20] MEDS: MOM 30ML SUSPENSION UDC PO SCH (08:28)
[2019-03-20] MEDS: ASPIRIN 81 MG ENTERIC TAB PO SCH (08:29)
[2019-03-20] MEDS: FOLIC ACID 1 MG TAB PO SCH (08:29)
[2019-03-20] MEDS: RIVAROXABAN 15 MG TAB (XARELTO) PO SCH ×2 (08:29→17:29)
[2019-03-20] MEDS: DIGOXIN 0.25 MG TAB PO SCH (08:29)
[2019-03-20] MEDS: DOCUSATE SODIUM 100 MG CAP PO SCH ×2 (08:29→21:00)
[2019-03-20] MEDS: CLOPIDOGREL 75 MG TAB PO SCH (08:30)
[2019-03-20] MEDS: MULTIVITAMINS/MINERALS THERAP 1 TAB PO SCH (08:30)
[2019-03-20] MEDS: METOPROLOL SUCC (TopROL XL) 100MG *XL* TAB PO SCH (08:30)
--- NOTE | 2019-03-20 08:32 | IPN ---
DATE: 03/20/2019 Mr. Gee is feeling better again. He feels he has a little more energy. Denies any chest pain or sensation of palpitations. Pain in the right lower extremity has improved as well. Peripheral edema is not much better though. Vital Signs: Blood pressure 122/68. Heart rate fluctuates from 70s to 120s, on average about 100 beats per minute. He is afebrile. Saturation 97% on room air. His fluid balance yesterday was recorded negative 770, output from the chest tube is only 10mL. Weight has not been recorded this morning as yet. His jugular venous pulse (JVP) does not look high. Lungs are reasonably clear on both sides today. Heart exam reveals irregular rhythm. I do not appreciate any gallop or murmur over the aortic area, but there is faint murmur at the apex suggestive of mitral regurgitation (MR). Abdomen is soft. There is about 2-3+ edema to about 3/4 of his shins. Chest tube is still in place. Laboratories: Digoxin level is 1.3. Basic metabolic panel is normal, but for magnesium 1.6. CBC reveals hemoglobin of 11.6, hematocrit 34, platelet count 135,000, and WBC count 9.3. ASSESSMENT/PLAN: Mr. Gee is a 63-year-old man who has had no medical care for years and heavy alcohol and tobacco use who presented with massive pulmonary embolism complicated by a large pleural effusion and also cardiomyopathy with atrial flutter and 2:1 conduction. As far as his management is concerned, he is improving on all grounds. He is now on initial 15 twice a day dose of rivaroxiban. He also is on aspirin and Plavix because he had intervention of his right lower extremity. My recommendation would be to eliminate one of the antiplatelet agents unless felt imperative by vascular surgery. As far as the management of atrial flutter is concerned, he is on long-acting metoprolol plus digoxin. I was afraid that the Digoxin level would be too high, but it was actually acceptable and consequently I am going to leave the dosing unchanged. He tolerates doses of valsartan 180 mg without difficulty and consequently I am going to advance the dose further. I do believe that his cardiomyopathy is either alcohol induced or tachycardia induced. Either way, there should be a reasonable hope that it will improve with medical management.
--- NOTE | 2019-03-20 09:48 | CCN ---
DATE OF SERVICE: 03/20/2019 Mr. Gee is being followed for a chest tube. He has remained afebrile and reports his breathing has been good. His oxygen saturation is currently 97% on room air. The chest tube was clamped yesterday with plans for discontinuing the chest tube today if he continued to do well. PHYSICAL EXAMINATION: Vital signs: Temperature 98.5, heart rate currently is 116, blood pressure 122/68, respiratory rate 18, oxygen (O2) saturation is 97% on room air. General: The patient his alert and oriented times three. He speaks in complete sentences. HEENT: Head is normocephalic, atraumatic. Moist mucous membranes. Neck: Neck is supple. No cervical lymphadenopathy. No jugular venous distention (JVD). Trachea is midline. Pulmonary: Clear to auscultation bilaterally. No accessory muscle use. Heart: Regular rate and rhythm. S1 and S2. No murmurs. Abdomen: Positive bowel sounds, soft, nontender. No rebound or guarding. Extremities: 2-3+ bilateral lower extremity pitting edema. Skin: Skin is warm and dry. Chest x-ray: Bilateral pleural angle blunting, which appears unchanged from yesterday. There is a right chest tube in place. LABORATORIES: WBC 9.3, hemoglobin 11.6, hematocrit 34.8, platelets 135. Sodium 140, potassium 3.9, chloride 106, carbon dioxide 31, BUN 16, creatinine 0.67, glucose 89, calcium 7.7, magnesium 1.6. ASSESSMENT AND PLAN: 1. Pleural effusion. The patient has had a chest tube in place. The chest tube was clamped yesterday, and he has remained stable. He is not hypoxic, and his oxygen saturation is 97% on room air. The plan will be for discontinuation of chest tube today. The patient will have a repeat chest x-ray in the morning. Continue to monitor. 2. Pneumonia. The patient's sputum culture did grow Haemophilus influenzae. He is currently on Augmentin. He had been on Zosyn and vancomycin prior to being changed to oral Augmentin. His white count is continuing to trend down and is 9.7 today. Continue to monitor. 3. Pulmonary embolism and deep venous thrombosis (DVT). The patient is on Xarelto. He is being followed by the medicine team for pulmonary embolism (PE) and DVT.
[2019-03-20 10:41] VITALS: BP 104/55
[2019-03-20 11:57] VITALS: BP 122/66
[2019-03-20] MEDS ORDERED: LIDOCAINE 1% MDV 20ML VIAL As Ordered ONE (12:44)
--- NOTE | 2019-03-20 12:51 | REP ---
Portable chest x-ray: Single view. 12:32 p.m. film. History: Chest tube at the site of leaking. Pleural effusion. Comparison study: 07:44 a.m. film on this same date. Findings: The right chest tube has been withdrawn since the earlier film. There is no evidence of pneumothorax. There is some persistent blunting of the right lateral and left lateral pleural angles indicating small effusions. Multiple right-sided rib fractures are again seen. Subcutaneous air is seen along the right chest wall in the extrathoracic soft tissues as before. No other new finding. Electronically Signed by Tyrell Self MD 03/20/2019 12:43 P
[2019-03-20] MEDS ORDERED: LIDOCAINE 1% MDV 20ML VIAL SC ONE (13:15)
--- NOTE | 2019-03-20 13:32 | RO ---
DATE OF PROCEDURE: 03/20/2019 PREOPERATIVE DIAGNOSIS: Bleeding from laceration from chest tube insertion. POSTOPERATIVE DIAGNOSIS: Bleeding from laceration from chest tube insertion. PROCEDURE: Suture right lateral chest wall. SURGEON: Charles Hatfield DO [employer] ADVISOR: No assistants. ANESTHESIA: 1% lidocaine 5 mL instilled subcutaneously. I was called by the patient's attending physician for bleeding from the chest tube site. On my arrival, the bandages are loose. There is no pressure over the site. There is oozing directly from the previous chest tube insertion site. I cleaned the area and prepped and draped the patient. The patient could gave verbal consent. CONSENT: Verbal consent was given by the patient. DESCRIPTION OF PROCEDURE: After a time-out was performed with two patient identifiers identifying correct site and correct procedure, the area was cleaned with chlorhexidine. There was using oozing of zari blood directly from the insertion site. Old suture material was removed. 1% lidocaine was then instilled subcutaneously. Despite using a skin needle there was small amounts of hemorrhage from the needle sites from the subcutaneous lidocaine. The patient is obviously extremely anticoagulated. I then placed two sutures with #3.0 Ethilon. After the sutures were placed there was no significant bleeding. A sterile dressing was applied over the site. The patient expressed no discomfort. Chest x-ray was performed prior to my arrival, which did not show any return of the pneumothorax. It shows continued blunting of the right costophrenic angle with no significant change in the amount of fluid present. There were no observed complications.
--- NOTE | 2019-03-20 15:13 | IPNPDOC ---
Text Note Date of Service The patient was seen on 03/20/19. NOTE Subjective: -Feels the same this morning, happy that the chest tube is out, no chest pain, palpitations or shortness of breath -No fevers, chills, diarrhea or dysuria Interim events: Mid afternoon got call from nurse that he had bleeding at chest tube site, remained hemodynamically stable and breathing comfortably on room air. Dr. Hatfield made aware, CXR was stable and placed a few stitches to help stop bleeding. Objective: General: NAD HEENT: PERRLA, EOMI Neck: no JVD Lungs: No zari crackles or wheezing, moving air well, chest tube in R chest inferolateral chest, serosanguineous fluid CV: RRR, no mrg Abdomen: Normoactive, non distended, nontender Extremities: 2+ LE edema bilaterally to the knees, otherwise warm feet Neuro: Nonfocal, cranial nerves from 2-12 intact and moving all 4 extremities. Labs: Reviewed WBC 19.3 Hgb 11.6 Hct 364.8 Cr 0.67 K 3.9 Mag 1.6 Assessment: 63 years old without much contact with the healthcare system who presented to the hospital with increased shortness of breath and LE swelling and found to have bilateral pulmonary emboli, large right pleural effusion and small left pleural effusion along with elements of partial collapse, ground-glass infiltrates and cardiomegaly now on augmentin for H.flu PNA, s/p heparin gtt now on eliquis and with a R sided chest tube now to waterseal after drainage of an exudative effusion with pending cytology, with course c/b noted right common iliac artery stenosis with occlusion of the right superficial femoral artery at its origin s/p thrombolysis now on plavix, as well as AFlutter w/ RVR in the setting of bilateral PEs and PNA now s/p amio and on metoprolol and digoxin. Sepsis 2/2 Hflu PNA: Doing much better, with resolved sepsis. On presentation he had large right pleural effusion and small left pleural effusion along with elements of partial collapse, ground-glass infiltrates, and atelectasis, with leukocytosis, tachycardia and dyspnea -Was initially placed on vancomycin and Zosyn--> and switched to Augmentin for H.flu, to treat for a full 7d course, day 8 of antibiotics, will discontinue at this time. -continue supportive nebs and supplemental O2 -Follow up blood cultures Bilateral pleural effusions: Etiology still under investigation: infectious vs. possible malignancy, given its exudative nature, unlikely to be cardiac -f/u cytology -s/p chest tube by Dr. Tran, he recommended to continue chest tube suction continue his chest tube until the fluid stops draining. There is suspicion for pulmonary infarcts. The post expansion compression atelectasis is now resolved. His chest tube does not have an air leak, although it is posterior. -Chest tube was discontinued today--> c/b some bleeding--> stable CXR, had stitches placed by Dr. Hatfield, dressed. Will monitor. Plavix being stopped, will be on Xarelto/ASA. Atrial flutter with rapid ventricular response: Resolved. Most likely secondary to pulmonary emboli and infection. -Heart rate now within normal range -Continue metoprolol and digoxin -On Xarelto and tolerating well -Cardiology concerned about triple therapy since he is on ASA, xarelto and plavix, will discuss with vascular about risk vs. benefit? Cardiology suggesting discontinuing the plavix if vascular/IR allowed--> will ask IR today since they did the procedure. 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 -03/18/19 started Valsartran, increased dose by Dr. Perry today -On metop -Is producing robust UOP, will let him autodiurese as per cardiology recs -Appreciate Cardiology recs -strict I/Os Pulmonary embolism: Unprovoked pulmonary emboli -continue Xarelto -There is concern for underlying malignancy, patient lost 20 pounds for past year, has bilateral exudative effusions and unprovoked PEs --> to follow up with PCP outpatient. -Will need to repeat CT scan of the chest and CT of abdomen and pelvis after resolution of pulmonary emboli and infiltrates Right distal leg arterial insufficiency: -IR started on 03/16/19 successful SFA thrombolysis, SFA, popliteal, anterior tibial and posterior tibial artery angioplasty. -Patient has pulse on the right dorsalis pedis artery after 3 treatments of thrombolysis. -Follow-up with interventional radiologist after discharge. -Cardiology concerned about triple therapy since he is on ASA, xarelto and plavix. Discussed with Dr. Layton this afternoon to DC the plavix at this time. Hypertension -Blood pressures under control for now Alcohol use disorder -Not in alcohol withdrawal -Social service on board VS,Dilan, I+O VS, Dilan, I+O Laboratory Tests 03/20/19 05:40 Vital Signs Date Time Temp Pulse Resp B/P (MAP) Pulse Ox O2 Delivery O2 Flow Rate FiO2 03/20/19 04:00 97.8 85 18 138/78 (98) 95 Room Air 03/17/19 18:00 3 I&O- Last 24 Hours up to 6 AM 03/20/19 06:00 Intake Total 480 ml Output Total 650 ml Balance -170 ml YVETTE ABERNATHY MD Mar 20, 2019 07:55
[2019-03-20 15:24] VITALS: BP 105/65
[2019-03-20 20:00] VITALS: BP 115/69
[2019-03-20] MEDS: PERCOCET 5MG/325MG TAB PO PRN (20:51)
[2019-03-20] MEDS ORDERED: VALSARTAN 80 MG TAB (DIOVAN) PO SCH (21:00)
[2019-03-21] VITALS (7 sets, daily range): BP systolic 100–148; BP diastolic 57–72
[2019-03-21] MEDS: LEVALBUTEROL 1.25 MG/0.5 ML CONCENTRATE NEB NEB SCH ×4 (01:36→20:09)
[2019-03-21 05:53] LABS: BASO % 0.4 % (0.0-1.0); EOS # 0.3 10^3/uL (0.0-0.5); HEMATOCRIT 34.4 % (42.0-52.0); HEMOGLOBIN 11.2 g/dl (13.5-17.5); LYMPH # 1.6 10^3/uL (1.5-5.0); LYMPH % 15.1 % (24.0-44.0); MEAN CORPUSCULAR HEMOGLOBIN 31.8 pg (27.0-33.0); MEAN CORPUSCULAR HGB CONC 32.6 g/dl (32.0-36.5); MEAN CORPUSCULAR VOLUME 97.7 fl (80.0-96.0); MONO # 1.2 10^3/uL (0.0-0.8); MONO % 11.9 % (0.0-5.0); NEUTROPHILS # 7.1 10^3/uL (1.5-8.5); NEUTROPHILS % 69.2 % (36.0-66.0); PLATELET COUNT, AUTOMATED 166 10^3/uL (150-450); RED BLOOD COUNT 3.52 10^6/uL (4.30-6.10); WHITE BLOOD COUNT 10.3 10^3/uL (4.0-10.0)
[2019-03-21] MEDS: SLF 3 ML SYR IV SCH ×3 (06:05→22:35)
[2019-03-21 06:19] LABS: BLOOD UREA NITROGEN 17 MG/DL (7-18); CALCIUM LEVEL 7.7 MG/DL (8.8-10.2); CARBON DIOXIDE LEVEL 29 MEQ/L (21-32); CHLORIDE LEVEL 107 MEQ/L (98-107); CREATININE FOR GFR 0.56 MG/DL (0.70-1.30); GLOMERULAR FILTRATION RATE > 60.0 (>49); GLUCOSE, FASTING 92 MG/DL (70-100); MAGNESIUM LEVEL 1.7 MG/DL (1.8-2.4); POTASSIUM SERUM 4.1 MEQ/L (3.5-5.1); SODIUM LEVEL 139 MEQ/L (136-145)
--- NOTE | 2019-03-21 08:13 | REP ---
CHEST X-RAY: Two views. History of pleural effusion. March 20, 2019. FINDINGS: There are small bilateral pleural effusions unchanged. There is no visible pneumothorax. Decreasing extrathoracic soft tissue emphysema is seen on the right. Cardiomediastinal silhouette is unchanged. No new infiltrate. IMPRESSION: Small bilateral pleural effusions. Electronically Signed by Tyrell Self MD 03/21/2019 01:06 P
[2019-03-21] MEDS: MAGNESIUM CHLORIDE 64 MG TABCR (SLO MAG) PO SCH (08:38)
[2019-03-21] MEDS: RIVAROXABAN 15 MG TAB (XARELTO) PO SCH ×2 (08:39→17:46)
[2019-03-21] MEDS: PANTOPRAZOLE 40MG TAB (PROTONIX) PO SCH (08:39)
[2019-03-21] MEDS: FOLIC ACID 1 MG TAB PO SCH (08:39)
[2019-03-21] MEDS: MULTIVITAMINS/MINERALS THERAP 1 TAB PO SCH (08:39)
[2019-03-21] MEDS: ASPIRIN 81 MG ENTERIC TAB PO SCH (08:39)
[2019-03-21] MEDS: METOPROLOL SUCC (TopROL XL) 100MG *XL* TAB PO SCH (08:39)
[2019-03-21] MEDS: DIGOXIN 0.25 MG TAB PO SCH (08:40)
[2019-03-21] MEDS ORDERED: CALCIUM CARBONATE 500 MG CHEW U/D PO ONE (08:45)
[2019-03-21] MEDS ORDERED: MAG SULF 1GM/100ML (MAG RUN) 1 GM in IV 1 EA IV ONE (08:45)
--- NOTE | 2019-03-21 08:48 | IPN ---
DATE: 03/21/2019 Mr. Gee tells me he feels better. His chest tube was removed yesterday. He had some bleeding around the incision site, but it was corrected by stitches applied by Dr. Hatfield. He denies any chest pain or shortness of breath this morning. Blood pressure 142/72, heart rate has been better controlled, but still is in atrial flutter with 68-120 heart rate, afebrile, saturation 99-100% on room air. His fluid balance yesterday was about 200 positive. Weight is documented at 67.1 kg today. He is alert and oriented appropriate. His JVP does not look high. Lungs are diminished over both bases but I do not appreciate any crackles or wheezing. Heart exam reveals irregular rhythm. There is more noticeable murmur at the apex when his heart rate is a little slower. Abdomen is soft. Extremities still have about 1-2+ edema. Laboratory bob, CBC reveals a hemoglobin of 11.2, hematocrit 34, platelet count 166,000. Basic metabolic panel sodium 139, potassium 4.1, BUN 17, creatinine 0.6 and glucose 92, magnesium was 1.7 ASSESSMENT/PLAN: Mr. Gee is 63-year-old man who presented with pulmonary embolism, large right-sided pleural effusion, atrial flutter with RVR and severe left ventricular systolic dysfunction together with probable embolization to right lower extremity. As far as management of atrial flutter is concerned, he now appears to be reasonably well rate-controlled. I will continue current medications. As he will reach steady state on his beta concepción dose and digoxin, will probably be able to cut down the digoxin dose within a day and two. He has been anticoagulated with high dose Xarelto for pulmonary embolism. Soon the dose will be switched to maintenance dose and it will be continued for foreseeable future. Because of his peripheral intervention, he is also on baby aspirin. As far as the management of heart failure is concerned, he seems to be improving with better rate control, blood pressure is still sufficient so I believe we can actually switch him from valsartan to Entresto. My plan would be to continue management medically and then reevaluate him in approximately 2-3 months to see whether there has been recovery of his left ventricular systolic function. I discussed with him again the need to completely eliminate alcohol. He seems to be very understanding and indicates he does not believe it will be a problem. Obviously, the true test will occur when he leaves the hospital.
--- NOTE | 2019-03-21 08:54 | CCN ---
DATE OF SERVICE: 03/21/2019 Mr. Gee is seen in the progressive care unit (PCU). He is sitting up eating breakfast. His chest tube was removed yesterday. He states he is doing well without any breathing issues or shortness of breath. He is currently satting at 100% on room air. His chest tube was removed yesterday and he did have some post procedural bleeding and oozing requiring some sutures to be placed. He reports no further bleeding after. He is afebrile. He denies any other new issues. PHYSICAL EXAMINATION: Vitals: Temperature 97.6. Pulse currently is in the 140s and cardiology is aware. Respiratory rate is 16. Blood pressure 142/72. O2 saturation is 100% on room air. General: The patient is alert and oriented times three. Mood and affect appropriate. He is sitting up in the hospital bed eating breakfast. He speaks in complete sentences. HEENT: Head is normocephalic, atraumatic. Moist mucous membranes. Neck: Neck is supple. No cervical lymphadenopathy. No jugular venous distention (JVD). Trachea is midline. Pulmonary: Clear to auscultation bilaterally. No wheezes, rales or rhonchi. No accessory muscle use. Heart: Regular rate and rhythm. S1, S2. No murmurs. Abdomen: Positive bowel sounds, soft, nontender. No rebound or guarding. Extremities: The patient has 2-3+ bilateral lower extremity pitting edema. Skin: Skin is warm and dry. CHEST X-RAY: Shows blunting of the bilateral pleural angles, right greater than left. LABORATORY DATA: WBC 10.3, hemoglobin 11.2, hematocrit 34.4, platelets 166. Sodium 139, potassium 4.1, chloride 107, carbon dioxide 29, BUN 17, creatinine 0.56, glucose 92, calcium 7.7, magnesium 1.7. ASSESSMENT/PLAN: 1. Pleural effusion. The patient's pleural effusions have shown gradual improvement with the chest tube. The chest tube was removed yesterday. The patient is doing well since the chest tube was removed. He did require some sutures to be placed due to bleeding at the site of the chest tube. At this point, the patient is breathing without issues and his O2 saturation is 100% on room air. The patient had sutures placed yesterday. He will need to have the sutures removed in a week. This can be done in the outpatient office if he is out of the hospital at that time, but he will need the suture removed in a week's time. 2. Pneumonia. The patient's sputum culture grew Haemophilus influenzae. He is currently on Augmentin. White count is 10.3. Continue to monitor. He is afebrile. 3. Pulmonary embolism and deep vein thrombosis (DVT). The patient is on Xarelto. He is being followed by the medicine team for the pulmonary embolism (PE) and DVT.
[2019-03-21] MEDS: MOM 30ML SUSPENSION UDC PO SCH (09:00)
[2019-03-21] MEDS: DOCUSATE SODIUM 100 MG CAP PO SCH ×2 (09:00→21:00)
[2019-03-21] MEDS: ENTRESTO 49-51MG TABLET (SACUBITRIL/VALSARTAN) PO SCH ×2 (10:03→22:35)
--- NOTE | 2019-03-21 15:42 | IPNPDOC ---
Text Note Date of Service The patient was seen on 03/21/19. NOTE Subjective: -Feels OK this morning, without chest pain, palpitations or shortness of breath -No fevers, chills, diarrhea or dysuria Objective: General: NAD HEENT: PERRLA, EOMI Neck: no JVD Lungs: No zari crackles or wheezing, moving air well, chest tube sight with dressing that is c/d/i, no noted drainage CV: RRR, no mrg Abdomen: Normoactive, non distended, nontender Extremities: 2+ LE edema bilaterally to the knees, otherwise warm feet Neuro: Nonfocal, cranial nerves from 2-12 intact and moving all 4 extremities. Labs: Reviewed WBC 10.3 Hgb 11.2 Hct 34.4 Cr 0.56 K 4.1 Mag 1.7 Assessment: 63 years old without much contact with the healthcare system who presented to the hospital with increased shortness of breath and LE swelling and found to have bilateral pulmonary emboli, large right pleural effusion and small left pleural effusion along with elements of partial collapse, ground-glass infiltrates and cardiomegaly now on augmentin for H.flu PNA, s/p heparin gtt now on eliquis s/p R sided chest tube now discontinued, with noted exudative effusion with pending cytology, with course c/b noted right common iliac artery stenosis with occlusion of the right superficial femoral artery at its origin s/p thrombolysis, as well as AFlutter w/ RVR in the setting of bilateral PEs and PNA now s/p amio and on metoprolol and digoxin. Sepsis 2/2 Hflu PNA: Doing much better, with resolved sepsis. On presentation he had large right pleural effusion and small left pleural effusion along with elements of partial collapse, ground-glass infiltrates, and atelectasis, with leukocytosis, tachycardia and dyspnea -Was initially placed on vancomycin and Zosyn--> and switched to Augmentin for H.flu. Treated to completion for a total 8 days. -continue supportive nebs and supplemental O2 -BCx negative Bilateral pleural effusions: Etiology still under investigation: infectious vs. possible malignancy, given its exudative nature, unlikely to be cardiac -f/u cytology -s/p chest tube by Dr. Tran, and discontinued by Dr. Hatfield (pul) on 03/20--> c/b some bleeding--> stable CXR, had stitches placed, discontinued plavix, now stable. -On Xarelto/ASA. Atrial flutter with rapid ventricular response: Resolved. Most likely secondary to pulmonary emboli and infection. -Heart rate now within normal range -Continue metoprolol and digoxin -On Xarelto and tolerating well -Was briefly on ASA, xarelto and plavix. Plavix now dc'd as of 03/[address] 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 -03/18/19 started Valsartran, increased dose by Dr. Perry -Continue metoprolol -Appreciate Cardiology recs -strict I/Os with continuing robust UOP Pulmonary embolism: Unprovoked pulmonary emboli -continue Xarelto -There is concern for underlying malignancy, patient lost 20 pounds for past year, has bilateral exudative effusions and unprovoked PEs --> to follow up with PCP outpatient. -Will need to repeat CT scan of the chest and CT of abdomen and pelvis after resolution of pulmonary emboli and infiltrates Right distal leg arterial insufficiency: -IR started on 03/16/19 successful SFA thrombolysis, SFA, popliteal, anterior t ibial and posterior tibial artery angioplasty. -Patient has pulse on the right dorsalis pedis artery after 3 treatments of thrombolysis. -Follow-up with interventional radiologist after discharge. -Was briefly on ASA, xarelto and plavix, now dc'd plavix after discussion with Dr. Layton on 03/20. Remains on Xarelto/ASA. Hypertension -Blood pressures under control for now Alcohol use disorder -Not in alcohol withdrawal -Social service on board VS,Fishbone, I+O VS, Fishbone, I+O Laboratory Tests 03/21/19 05:31 Vital Signs Date Time Temp Pulse Resp B/P (MAP) Pulse Ox O2 Delivery O2 Flow Rate FiO2 03/21/19 07:55 97.6 63 16 142/72 (95) 100 Room Air 03/17/19 18:00 3 I&O- Last 24 Hours up to 6 AM 03/21/19 06:00 Intake Total 1350 ml Output Total 1025 ml Balance 325 ml YVETTE ABERNATHY MD Mar 21, 2019 08:41
[2019-03-21] MEDS: PERCOCET 5MG/325MG TAB PO PRN (17:51)
[2019-03-22] VITALS: BP 112/63
[2019-03-22] MEDS: LEVALBUTEROL 1.25 MG/0.5 ML CONCENTRATE NEB NEB SCH ×4 (01:19→20:53)
[2019-03-22 04:00] VITALS: BP 143/78
[2019-03-22] MEDS: SLF 3 ML SYR IV SCH ×3 (05:41→21:20)
[2019-03-22] MEDS: DIGOXIN 0.25 MG TAB PO SCH (07:54)
[2019-03-22] MEDS: RIVAROXABAN 15 MG TAB (XARELTO) PO SCH ×2 (07:54→17:03)
[2019-03-22] MEDS: METOPROLOL SUCC (TopROL XL) 100MG *XL* TAB PO SCH (07:56)
[2019-03-22 08:00] VITALS: BP 82/56
--- NOTE | 2019-03-22 08:36 | REP ---
Chest x-ray: Two views. History: Pleural effusion. Comparison chest x-ray: March 21, 2019. Findings: There is blunting of the pleural angles bilaterally right greater than left consistent with small bilateral effusions. These are unchanged. Increased markings in the right base are seen consistent with atelectasis. Multiple somewhat displaced right-sided rib fractures are again seen. No new infiltrate is noted. Electronically Signed by Tyrell Self MD 03/22/2019 08:27 A
[2019-03-22 09:00] VITALS: BP 98/60
[2019-03-22] MEDS: MOM 30ML SUSPENSION UDC PO SCH (09:00)
[2019-03-22] MEDS: ENTRESTO 49-51MG TABLET (SACUBITRIL/VALSARTAN) PO SCH ×2 (09:00→21:19)
[2019-03-22] MEDS: DOCUSATE SODIUM 100 MG CAP PO SCH ×2 (09:00→21:00)
--- NOTE | 2019-03-22 09:06 | IPN ---
DATE: 03/22/2019 Mr. Gee has been feeling well. His heart rate is typically well controlled during the day, but then in the morning hours before he gets morning medications he becomes quite tachycardiac. This morning, vital signs: Blood pressure 82/56. Heart rate around 150, atrial flutter with 2:1 conduction. Afebrile. Saturation 94% on room air. Jugular venous pulse (JVP) is not elevated. Weight is documented 66.8 kg. He is alert and oriented appropriate. He does not feel dizzy or lightheaded at all. He does not have any sensation of palpitations. JVP is not up. Lungs sound reasonably clear in upper parts, but the bottom of his right lung field is very diminished, the same on the left. Heart exam reveals irregular tachycardia. Abdomen: Soft. Peripheral edema is still 1-2+, but improving. Laboratory-bob, CBC with hemoglobin 11.2, hematocrit 34, platelet count 166,000. Basic metabolic panel is normal. ASSESSMENT/PLAN: Mr. 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 He is clinically improving. There is still have trouble controlling his rate. He is on long-acting Toprol XL plus digoxin and throughout the day his heart rate is good. Because he is asymptomatic, I am not going to make any changes in his medications. As long as we accomplish good rate control throughout the day I am going to leave his medications unchanged. He is obviously anticoagulated and will remain so for the foreseeable future and probably for good. As far as the heart failure is concerned, he does not seem to have any obvious fluid retention. His peripheral edema is improving even without him getting diuretics. I started him on Entresto in a small dose yesterday. He previously tolerated high doses of ARBs without difficulty. Unfortunately, the medication will be held this morning due to low blood pressure, but I do believe that it will rebound during the day. I do not foresee any changes in his treatment today.
[2019-03-22] MEDS: MAGNESIUM CHLORIDE 64 MG TABCR (SLO MAG) PO SCH (09:23)
[2019-03-22] MEDS: MULTIVITAMINS/MINERALS THERAP 1 TAB PO SCH (09:23)
[2019-03-22] MEDS: PANTOPRAZOLE 40MG TAB (PROTONIX) PO SCH (09:23)
[2019-03-22] MEDS: FOLIC ACID 1 MG TAB PO SCH (09:23)
[2019-03-22] MEDS: ASPIRIN 81 MG ENTERIC TAB PO SCH (09:23)
[2019-03-22 09:54] LABS: HEMATOCRIT 36.7 % (42.0-52.0); HEMOGLOBIN 11.7 g/dl (13.5-17.5); MEAN CORPUSCULAR HEMOGLOBIN 31.3 pg (27.0-33.0); MEAN CORPUSCULAR HGB CONC 31.9 g/dl (32.0-36.5); MEAN CORPUSCULAR VOLUME 98.1 fl (80.0-96.0); PLATELET COUNT, AUTOMATED 222 10^3/uL (150-450); RED BLOOD COUNT 3.74 10^6/uL (4.30-6.10); WHITE BLOOD COUNT 8.3 10^3/uL (4.0-10.0)
[2019-03-22 10:27] LABS: BLOOD UREA NITROGEN 18 MG/DL (7-18); CALCIUM LEVEL 7.7 MG/DL (8.8-10.2); CARBON DIOXIDE LEVEL 27 MEQ/L (21-32); CHLORIDE LEVEL 107 MEQ/L (98-107); CREATININE FOR GFR 0.63 MG/DL (0.70-1.30); GLOMERULAR FILTRATION RATE > 60.0 (>49); GLUCOSE, FASTING 158 MG/DL (70-100); MAGNESIUM LEVEL 1.6 MG/DL (1.8-2.4); SODIUM LEVEL 140 MEQ/L (136-145)
--- NOTE | 2019-03-22 13:26 | IPNPDOC ---
Text Note Date of Service The patient was seen on 03/22/19. NOTE Subjective: -Doing well this morning, without chest pain, palpitations despite significant tachycardia or shortness of breath -No fevers, chills, diarrhea or dysuria Objective: General: NAD HEENT: PERRLA, EOMI Neck: no JVD Lungs: No zari crackles or wheezing, moving air well, chest tube sight with dressing that is c/d/i CV: Tachycardic, no mrg Abdomen: Normoactive, non distended, nontender Extremities: 2+ LE ankle edema bilaterally to the knees, otherwise warm feet Neuro: Nonfocal, cranial nerves from 2-12 intact and moving all 4 extremities. Labs: Pending Assessment: 63 years old without much contact with the healthcare system who presented to the hospital with increased shortness of breath and LE swelling and found to have bilateral pulmonary emboli, large right pleural effusion and small left pleural effusion along with elements of partial collapse, ground-glass infiltrates and cardiomegaly now on augmentin for H.flu PNA, s/p heparin gtt now on eliquis s/p R sided chest tube now discontinued, with noted exudative effusion with pending cytology, with course c/b noted right common iliac artery stenosis with occlusion of the right superficial femoral artery at its origin s/p thrombolysis, as well as AFlutter w/ RVR in the setting of bilateral PEs and PNA now s/p amio and on metoprolol and digoxin. Sepsis 2/2 Hflu PNA: Doing much better, with resolved sepsis. On presentation he had large right pleural effusion and small left pleural effusion along with elements of partial collapse, ground-glass infiltrates, and atelectasis, with leukocytosis, tachycardia and dyspnea -Was initially placed on vancomycin and Zosyn--> and switched to Augmentin for H.flu. Treated to completion for a total 8 days. -continue supportive nebs and supplemental O2 -BCx negative Bilateral pleural effusions: Etiology still under investigation: infectious vs. possible malignancy, given its exudative nature, unlikely to be cardiac -f/u cytology -s/p chest tube by Dr. Tran, and discontinued by Dr. Hatfield (pul) on 03/20--> c/b some bleeding--> stable CXR, had stitches placed, discontinued plavix, now stable. -On Xarelto/ASA. Atrial flutter with rapid ventricular response: Resolved. Most likely secondary to pulmonary emboli and infection. -Heart rate fluctuating, currently on metoprolol 200 XL and digoxin, will discuss with Dr. Workman -On Xarelto and tolerating well -Was briefly on ASA, xarelto and plavix. Plavix now dc'd as of 03/[address] 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 -03/18/19 started Valsartran, was switched to Entresto by Dr. Perry yesterday 03/21 morning -Continue metoprolol -Appreciate Cardiology recs -strict I/Os with continuing robust UOP Pulmonary embolism: Unprovoked pulmonary emboli -continue Xarelto -There is concern for underlying malignancy, patient lost 20 pounds for past year, has bilateral exudative effusions and unprovoked PEs --> to follow up with PCP outpatient. -Will need to repeat CT scan of the chest and CT of abdomen and pelvis after resolution of pulmonary emboli and infiltrates Right distal leg arterial insufficiency: -IR started on 03/16/19 successful SFA thrombolysis, SFA, popliteal, anterior tibial and posterior tibial artery angioplasty. -Patient has pulse on the right dorsalis pedis artery after 3 treatments of thrombolysis. -Follow-up with interventional radiologist after discharge. -Was briefly on ASA, xarelto and plavix, now dc'd plavix after discussion with Dr. Layton on 03/20. Remains on Xarelto/ASA. Hypertension -Blood pressures under control for now Alcohol use disorder -Not in alcohol withdrawal -Social service on board VS,Fishbone, I+O VS, Fishbone, I+O Vital Signs Date Time Temp Pulse Resp B/P (MAP) Pulse Ox O2 Delivery O2 Flow Rate FiO2 03/22/19 07:56 153 143/78 03/22/19 04:00 98.1 18 96 Room Air 03/17/19 18:00 3 I&O- Last 24 Hours up to 6 AM 03/22/19 06:00 Intake Total 1180 ml Output Total 600 ml Balance 580 ml YVETTE ABERNATHY MD Mar 22, 2019 08:11
[2019-03-22] MEDS ORDERED: MAG SULF 1GM/100ML (MAG RUN) 1 GM in IV 1 EA IV ONE (16:45)
[2019-03-22 20:00] VITALS: BP 134/76
[2019-03-22] MEDS: PERCOCET 5MG/325MG TAB PO PRN (21:20)
[2019-03-22 23:59] VITALS: BP 120/71
[2019-03-23] MEDS: LEVALBUTEROL 1.25 MG/0.5 ML CONCENTRATE NEB NEB SCH ×4 (02:00→19:55)
[2019-03-23 04:00] VITALS: BP 128/74
[2019-03-23] MEDS: SLF 3 ML SYR IV SCH ×3 (05:06→22:00)
[2019-03-23 06:12] LABS: HEMOGLOBIN 11.4 g/dl (13.5-17.5); MEAN CORPUSCULAR HEMOGLOBIN 31.1 pg (27.0-33.0); MEAN CORPUSCULAR HGB CONC 31.7 g/dl (32.0-36.5); MEAN CORPUSCULAR VOLUME 98.1 fl (80.0-96.0); PLATELET COUNT, AUTOMATED 220 10^3/uL (150-450); RED BLOOD COUNT 3.67 10^6/uL (4.30-6.10); WHITE BLOOD COUNT 9.5 10^3/uL (4.0-10.0)
[2019-03-23 06:31] LABS: BLOOD UREA NITROGEN 20 MG/DL (7-18); CARBON DIOXIDE LEVEL 28 MEQ/L (21-32); CHLORIDE LEVEL 106 MEQ/L (98-107); CREATININE FOR GFR 0.65 MG/DL (0.70-1.30); GLOMERULAR FILTRATION RATE > 60.0 (>49); GLUCOSE, FASTING 83 MG/DL (70-100); POTASSIUM SERUM 4.2 MEQ/L (3.5-5.1); SODIUM LEVEL 141 MEQ/L (136-145)
[2019-03-23 08:00] VITALS: BP 117/89
[2019-03-23] MEDS: DOCUSATE SODIUM 100 MG CAP PO SCH ×3 (08:20→20:36)
[2019-03-23] MEDS: ENTRESTO 49-51MG TABLET (SACUBITRIL/VALSARTAN) PO SCH ×2 (08:20→20:36)
[2019-03-23] MEDS: PANTOPRAZOLE 40MG TAB (PROTONIX) PO SCH (08:20)
[2019-03-23] MEDS: DIGOXIN 0.25 MG TAB PO SCH (08:20)
[2019-03-23] MEDS: METOPROLOL SUCC (TopROL XL) 100MG *XL* TAB PO SCH (08:20)
[2019-03-23] MEDS: ASPIRIN 81 MG ENTERIC TAB PO SCH (08:20)
[2019-03-23] MEDS: MAGNESIUM CHLORIDE 64 MG TABCR (SLO MAG) PO SCH (08:20)
[2019-03-23] MEDS: MOM 30ML SUSPENSION UDC PO SCH ×2 (08:21→08:24)
[2019-03-23] MEDS: RIVAROXABAN 15 MG TAB (XARELTO) PO SCH ×2 (08:21→18:51)
[2019-03-23] MEDS: MULTIVITAMINS/MINERALS THERAP 1 TAB PO SCH (08:21)
[2019-03-23] MEDS: FOLIC ACID 1 MG TAB PO SCH (08:21)
--- NOTE | 2019-03-23 09:03 | REP ---
Chest x-ray: Two views. History: Pleural effusion. Comparison study: March 22 2019. Findings: There is blunting of the pleural angles bilaterally, right a little more so than left unchanged from yesterday's radiograph. There is no visible pneumothorax. On the lateral radiograph, there is a retrosternal opacity, which corresponds to the focal pulmonary opacity seen on CT in the right upper lobe anteriorly. This is not a change. It does appear more conspicuous due to technical differences. Impression: Stable chest x-ray findings. Bilateral effusions. Retrosternal pulmonary opacity seen on the lateral radiograph. Electronically Signed by Tyrell Self MD 03/23/2019 12:37 P
[2019-03-23 12:00] VITALS: BP 110/59
--- NOTE | 2019-03-23 14:36 | IPNPDOC ---
Text Note Date of Service The patient was seen on 03/23/19. NOTE Subjective: -Doing well this morning, without chest pain, subjective palpitations or shortness of breath -No fevers, chills, diarrhea or dysuria Interim events: -Has significant episodic tachycardia to 150s that limits PT involvement Objective: General: NAD HEENT: PERRLA, EOMI Neck: no JVD Lungs: No zari crackles or wheezing, moving air well CV: Tachycardic, no mrg Abdomen: Normoactive, non distended, nontender Extremities: 2+ LE ankle edema bilaterally to the knees, otherwise warm feet Neuro: Nonfocal, cranial nerves from 2-12 intact and moving all 4 extremities. Labs: Reviewed, stable, see below Assessment: 63 years old without much contact with the healthcare system who presented to the hospital with increased shortness of breath and LE swelling and found to have bilateral pulmonary emboli, large right pleural effusion and small left pleural effusion along with elements of partial collapse, ground-glass infiltrates and cardiomegaly now on augmentin for H.flu PNA, s/p heparin gtt now on eliquis s/p R sided chest tube now discontinued, with noted exudative effusion with pending cytology, with course c/b noted right common iliac artery stenosis with occlusion of the right superficial femoral artery at its origin s/p thrombolysis, as well as AFlutter w/ RVR in the setting of bilateral PEs and PNA now s/p amio and on toprol XL and digoxin. Sepsis 2/2 Hflu PNA: Doing much better, with resolved sepsis. On presentation he had large right pleural effusion and small left pleural effusion along with elements of partial collapse, ground-glass infiltrates, and atelectasis, with leukocytosis, tachycardia and dyspnea -Was initially placed on vancomycin and Zosyn--> and switched to Augmentin for H.flu. Treated to completion for a total 8 days. -continue supportive nebs and supplemental O2 -BCx negative Bilateral pleural effusions: Etiology still under investigation: infectious vs. possible malignancy, given its exudative nature, unlikely to be cardiac -f/u cytology -s/p chest tube by Dr. Tran, and discontinued by Dr. Hatfield (pul) on 03/20--> c/b some bleeding--> stable CXR, had stitches placed, discontinued plavix, now stable. -On Xarelto/ASA. Atrial flutter with rapid ventricular response: Resolved. Most likely secondary to pulmonary emboli and infection. -Heart rate fluctuating, currently on metoprolol 200 XL and digoxin, Dr. Workman recommended continuing meds as they are yesterday, will discuss the episodic tachycardia with him. -On Xarelto and tolerating well -Was briefly on ASA, xarelto and plavix. Plavix now dc'd as of 03/[address] 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 -03/18/19 started Valsartran, was switched to Entresto by Dr. Perry yesterday 03/21 morning -Continue metoprolol -Appreciate Cardiology recs -strict I/Os with continuing robust UOP Pulmonary embolism: Unprovoked pulmonary emboli -continue Xarelto -There is concern for underlying malignancy, patient lost 20 pounds for past year, has bilateral exudative effusions and unprovoked PEs --> to follow up with PCP outpatient. -Will need to repeat CT scan of the chest and CT of abdomen and pelvis after re solution of pulmonary emboli and infiltrates Right distal leg arterial insufficiency: -IR started on 03/16/19 successful SFA thrombolysis, SFA, popliteal, anterior tibial and posterior tibial artery angioplasty. -Patient has pulse on the right dorsalis pedis artery after 3 treatments of thrombolysis. -Follow-up with interventional radiologist after discharge. -Was briefly on ASA, xarelto and plavix, now dc'd plavix after discussion with Dr. Layton on 03/20. Remains on Xarelto/ASA. Hypertension -Blood pressures under control for now Alcohol use disorder -Not in alcohol withdrawal -Social service on board VSDilan, I+O Dilan RETANA, I+O Laboratory Tests 03/22/19 09:45 03/23/19 05:42 Vital Signs Date Time Temp Pulse Resp B/P (MAP) Pulse Ox O2 Delivery O2 Flow Rate FiO2 03/23/19 08:20 152 117/89 03/23/19 04:00 98.0 16 98 Room Air 03/17/19 18:00 3 I&O- Last 24 Hours up to 6 AM 03/23/19 06:00 Intake Total 160 ml Output Total 650 ml Balance -490 ml YVETTE ABERNATHY MD Mar 23, 2019 08:25
--- NOTE | 2019-03-23 14:44 | IPN ---
DATE: 03/23/2019 Mr. Gee again feels a little bit better. He ambulated on PCU today. He says that he at times is slightly lightheaded, but not much and also report some pain in his lower extremities, but he says he is so-called getting used to it. Denies significant dyspnea our sensation of palpitations. His vital signs reveal blood pressure 110/59 and that he remains in 110-130 range systolic most of the time. Saturation is 97-100% on room air. His heart rate fluctuates between 60-150. He is usually well controlled during the day but then in morning hours before the morning dose of Toprol kicks in he usually is quite tachycardiac. He is afebrile. His fluid balance yesterday was approximately equal. Weight was recorded as 53.5 which certainly is not in keeping with the weight yesterday. He is alert and oriented and appropriate. His jugular venous pressure is mildly elevated. Lungs are reasonably clear, somewhat diminished on the right base, but not much. No wheezing, no crackles. Heart: Exam reveals irregular tachycardia, faint murmur at the apex maybe 2/6. Abdomen is soft. He has about 1+ edema to both lower extremities to three-quarter of his knees. LABORATORY Hemoglobin 11.4, hematocrit 36, platelet count 220,000, WBC count 9.5. Basic metabolic panel: Sodium 141, potassium 4.2, creatinine 8.7 and glucose 83, magnesium is 2.0. ASSESSMENT/PLAN Mr. 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 Also he has peripheral vascular disease (PVD) and probably emboli to his right lower extremity. Currently he is anticoagulated with Xarelto 50 mg twice a day. He will be soon switching to standard maintenance dose. Aspirin was added because of PVD. As far as the atrial flutter is concerned, he is reasonably rate-controlled but for morning hours and I am going to add small dose of extended release Toprol XL at night hoping that it will help to smooth his morning tachycardia. As far as the cardiomyopathy is concerned, besides peripheral edema which in my opinion is too a great degree related to malnutrition, he does not have much signs of volume overload, but yet I am going to give him low-dose diuretics trying to eliminate some of those excessive fluids. He is already on Entresto the medium dose of 100 mg twice a day and he takes high dose Toprol for rate control. I intend to see him in followup. Unfortunately I do not think he would pass home safety evaluation as yet, so he probably will be in hospital a little bit longer.
[2019-03-23] MEDS: FUROSEMIDE 20 MG TAB PO SCH (14:46)
[2019-03-23 16:00] VITALS: BP 135/85
[2019-03-23 20:00] VITALS: BP 112/60
[2019-03-23] MEDS ORDERED: METOPROLOL SUCC (TopROL XL) 50MG **XL** TAB PO SCH (21:00)
[2019-03-23 23:59] VITALS: BP 129/65
[2019-03-24] MEDS: LEVALBUTEROL 1.25 MG/0.5 ML CONCENTRATE NEB NEB SCH ×4 (02:00→19:51)
[2019-03-24 04:00] VITALS: BP 131/66
[2019-03-24 05:53] LABS: HEMATOCRIT 33.6 % (42.0-52.0); MEAN CORPUSCULAR HEMOGLOBIN 31.7 pg (27.0-33.0); MEAN CORPUSCULAR HGB CONC 32.7 g/dl (32.0-36.5); MEAN CORPUSCULAR VOLUME 96.8 fl (80.0-96.0); PLATELET COUNT, AUTOMATED 264 10^3/uL (150-450); RED BLOOD COUNT 3.47 10^6/uL (4.30-6.10); WHITE BLOOD COUNT 8.2 10^3/uL (4.0-10.0)
[2019-03-24] MEDS: SLF 3 ML SYR IV SCH ×3 (06:04→22:24)
[2019-03-24 06:14] LABS: BLOOD UREA NITROGEN 20 MG/DL (7-18); CALCIUM LEVEL 7.5 MG/DL (8.8-10.2); CARBON DIOXIDE LEVEL 27 MEQ/L (21-32); CHLORIDE LEVEL 107 MEQ/L (98-107); CREATININE FOR GFR 0.75 MG/DL (0.70-1.30); GLOMERULAR FILTRATION RATE > 60.0 (>49); GLUCOSE, FASTING 117 MG/DL (70-100); MAGNESIUM LEVEL 1.7 MG/DL (1.8-2.4); POTASSIUM SERUM 4.4 MEQ/L (3.5-5.1); SODIUM LEVEL 141 MEQ/L (136-145)
[2019-03-24 08:00] VITALS: BP 130/70
[2019-03-24] MEDS: ACETAMINOPHEN 500 MG TAB PO PRN ×2 (08:25→22:33)
[2019-03-24] MEDS: MULTIVITAMINS/MINERALS THERAP 1 TAB PO SCH (08:25)
[2019-03-24] MEDS: DIGOXIN 0.25 MG TAB PO SCH (08:25)
[2019-03-24] MEDS: ENTRESTO 49-51MG TABLET (SACUBITRIL/VALSARTAN) PO SCH ×2 (08:25→22:21)
[2019-03-24] MEDS: ASPIRIN 81 MG ENTERIC TAB PO SCH (08:25)
[2019-03-24] MEDS: DOCUSATE SODIUM 100 MG CAP PO SCH ×2 (08:26→21:00)
[2019-03-24] MEDS: FUROSEMIDE 20 MG TAB PO SCH (08:26)
[2019-03-24] MEDS: PANTOPRAZOLE 40MG TAB (PROTONIX) PO SCH (08:26)
[2019-03-24] MEDS: RIVAROXABAN 15 MG TAB (XARELTO) PO SCH ×2 (08:27→18:54)
[2019-03-24] MEDS: MOM 30ML SUSPENSION UDC PO SCH (08:27)
[2019-03-24] MEDS: FOLIC ACID 1 MG TAB PO SCH (08:27)
[2019-03-24] MEDS: MAGNESIUM CHLORIDE 64 MG TABCR (SLO MAG) PO SCH (08:27)
[2019-03-24] MEDS: METOPROLOL SUCC (TopROL XL) 100MG *XL* TAB PO SCH ×2 (08:28→22:24)
--- NOTE | 2019-03-24 11:15 | IPNPDOC ---
Text Note Date of Service The patient was seen on 03/24/19. NOTE Subjective: -Doing well this morning, without chest pain or shortness of breath -Sitting up in chair, looks much improved -No fevers, chills, diarrhea or dysuria Interim events: -Has had much improvement in his episodic tachycardia Objective: General: NAD HEENT: PERRLA, EOMI Neck: no JVD Lungs: No zari crackles or wheezing, moving air well CV: RRR, no mrg Abdomen: Normoactive, non distended, nontender Extremities: 2+ LE ankle edema bilaterally to the knees, otherwise warm feet Neuro: Nonfocal, cranial nerves from 2-12 intact and moving all 4 extremities. Labs: Reviewed, stable, see below Assessment: 63 years old without much contact with the healthcare system who presented to the hospital with increased shortness of breath and LE swelling and found to have bilateral pulmonary emboli, large right pleural effusion and small left pleural effusion along with elements of partial collapse, ground-glass infiltrates and cardiomegaly now on augmentin for H.flu PNA, s/p heparin gtt now on eliquis s/p R sided chest tube now discontinued, with noted exudative effusi on with pending cytology, with course c/b noted right common iliac artery stenosis with occlusion of the right superficial femoral artery at its origin s/p thrombolysis, as well as AFlutter w/ RVR in the setting of bilateral PEs and PNA now s/p amio and on toprol XL and digoxin. Sepsis 2/2 Hflu PNA: Doing much better, with resolved sepsis. On presentation he had large right pleural effusion and small left pleural effusion along with elements of partial collapse, ground-glass infiltrates, and atelectasis, with leukocytosis, tachycardia and dyspnea -Was initially placed on vancomycin and Zosyn--> and switched to Augmentin for H.flu. Treated to completion for a total 8 days. -continue supportive nebs and now on room air -BCx negative Bilateral pleural effusions: Etiology still under investigation: infectious vs. possible malignancy, given its exudative nature, unlikely to be cardiac -f/u cytology -s/p chest tube by Dr. Tran, and discontinued by Dr. Hatfield (pul) on 03/20--> c/b some bleeding--> stable CXR, had stitches placed, discontinued plavix, now stable. -On Xarelto/ASA. Atrial flutter with rapid ventricular response: Resolved. Most likely secondary to pulmonary emboli and infection. -Heart rate fluctuating, currently on metoprolol 200 XL and digoxin, Dr. Workman recommended continuing meds as they are yesterday, will discuss the episodic tachycardia with him. -On Xarelto and tolerating well -Was briefly on ASA, xarelto and plavix. Plavix now dc'd as of 03/[address] 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 -Continue Entresto -Continue metoprolol -Appreciate Cardiology recs -strict I/Os with continuing adequate UOP Pulmonary embolism: Unprovoked pulmonary emboli -continue Xarelto -There is concern for underlying malignancy, patient lost 20 pounds for past year, has bilateral exudative effusions and unprovoked PEs --> to follow up with PCP outpatient. -Will need to repeat CT scan of the chest and CT of abdomen and pelvis after resolution of pulmonary emboli and infiltrates Right distal leg arterial insufficiency: -IR started on 03/16/19 successful SFA thrombolysis, SFA, popliteal, anterior tibial and posterior tibial artery angioplasty. -Patient has pulse on the right dorsalis pedis artery after 3 treatments of thrombolysis. -Follow-up with interventional radiologist after discharge. -Was briefly on ASA, xarelto and plavix, now dc'd plavix after discussion with Dr. Layton on 03/20. Remains on Xarelto/ASA. Hypertension -Blood pressures under control for now Alcohol use disorder -Not in alcohol withdrawal -Social service on board VS,Fishbone, I+O VS, Fishbone, I+O Laboratory Tests 03/24/19 05:24 Vital Signs Date Time Temp Pulse Resp B/P (MAP) Pulse Ox O2 Delivery O2 Flow Rate FiO2 03/24/19 08:00 97.9 71 18 130/70 (90) 98 Room Air I&O- Last 24 Hours up to 6 AM 03/24/19 06:00 Intake Total 780 ml Output Total 1325 ml Balance -545 ml YVETTE ABERNATHY MD Mar 24, 2019 08:26
--- NOTE | 2019-03-24 11:26 | IPN ---
DATE OF VISIT: 03/24/2019 The patient is feeling slightly better every day. He says that he was able to ambulate, even though with some difficulty. He denies any chest pain, dyspnea or sensation of palpitations. His heart rate continues to be elevated in the morning hours, even though I gave him 50 mg of Toprol XL last night. I am going to increase the dose further. Vital signs this morning blood pressure 130/70. Heart rate 120s. Afebrile. Saturation 98% on room air. Fluid balance yesterday was recorded about negative 200 and is about 600 already today. Weight has been recorded 61.7, which is certainly not consistent with the weight yesterday or the day before yesterday. He is alert and oriented and appropriate. His jugular venous pulse (JVP) does not appear to be high, maybe 2 or 3 cm above the clavicle. Lungs are reasonably clear, somewhat diminished breath sounds right base. Heart exam irregular tachycardia. Abdomen is soft. He still has about 2+ edema. LABORATORIES: Hemoglobin 11, hematocrit 33, platelet count 264,000. Basic metabolic panel with sodium 141, potassium 4.4, creatinine 0.75, glucose 117. Magnesium was 1.7. ASSESSMENT/PLAN: Mr. Gee is a 63-year-old man who presented with pulmonary embolism, right pleural effusion, atrial flutter with rapid ventricular response (RVR) and cardiomyopathy. He is slowly improving. We are still working on rate control and I am going to advance the dose of Toprol at night. He also has been just started on diuretics today. I do think that he is approaching discharge, hopefully, within the next few days.
[2019-03-24 12:00] VITALS: BP 105/70
[2019-03-24 16:00] VITALS: BP 115/65
[2019-03-24 20:00] VITALS: BP 108/60
[2019-03-25] VITALS (7 sets, daily range): BP systolic 109–135; BP diastolic 56–77
[2019-03-25] MEDS: LEVALBUTEROL 1.25 MG/0.5 ML CONCENTRATE NEB NEB SCH ×4 (02:00→20:15)
[2019-03-25 05:35] LABS: HEMATOCRIT 32.3 % (42.0-52.0); HEMOGLOBIN 10.8 g/dl (13.5-17.5); MEAN CORPUSCULAR HEMOGLOBIN 32.2 pg (27.0-33.0); MEAN CORPUSCULAR HGB CONC 33.4 g/dl (32.0-36.5); MEAN CORPUSCULAR VOLUME 96.4 fl (80.0-96.0); PLATELET COUNT, AUTOMATED 264 10^3/uL (150-450); RED BLOOD COUNT 3.35 10^6/uL (4.30-6.10); WHITE BLOOD COUNT 8.4 10^3/uL (4.0-10.0)
[2019-03-25 05:56] LABS: BLOOD UREA NITROGEN 21 MG/DL (7-18); CALCIUM LEVEL 7.9 MG/DL (8.8-10.2); CARBON DIOXIDE LEVEL 28 MEQ/L (21-32); CHLORIDE LEVEL 107 MEQ/L (98-107); CREATININE FOR GFR 0.64 MG/DL (0.70-1.30); GLOMERULAR FILTRATION RATE > 60.0 (>49); GLUCOSE, FASTING 89 MG/DL (70-100); MAGNESIUM LEVEL 1.6 MG/DL (1.8-2.4); NT-PRO BNP 2746 PG/ML (<125); POTASSIUM SERUM 4.3 MEQ/L (3.5-5.1); SODIUM LEVEL 140 MEQ/L (136-145)
[2019-03-25] MEDS: SLF 3 ML SYR IV SCH ×3 (06:16→20:34)
[2019-03-25] MEDS: MAGNESIUM CHLORIDE 64 MG TABCR (SLO MAG) PO SCH (08:36)
[2019-03-25] MEDS: ASPIRIN 81 MG ENTERIC TAB PO SCH (08:36)
[2019-03-25] MEDS: ENTRESTO 49-51MG TABLET (SACUBITRIL/VALSARTAN) PO SCH ×2 (08:37→20:32)
[2019-03-25] MEDS: RIVAROXABAN 15 MG TAB (XARELTO) PO SCH ×2 (08:37→18:00)
[2019-03-25] MEDS: FUROSEMIDE 20 MG TAB PO SCH (08:37)
[2019-03-25] MEDS: DIGOXIN 0.25 MG TAB PO SCH (08:37)
[2019-03-25] MEDS: MOM 30ML SUSPENSION UDC PO SCH (08:38)
[2019-03-25] MEDS: PANTOPRAZOLE 40MG TAB (PROTONIX) PO SCH (08:38)
[2019-03-25] MEDS: METOPROLOL SUCC (TopROL XL) 100MG *XL* TAB PO SCH ×2 (08:38→20:33)
[2019-03-25] MEDS: DOCUSATE SODIUM 100 MG CAP PO SCH ×2 (08:38→20:30)
[2019-03-25] MEDS: MULTIVITAMINS/MINERALS THERAP 1 TAB PO SCH (08:38)
[2019-03-25] MEDS: FOLIC ACID 1 MG TAB PO SCH (08:38)
--- NOTE | 2019-03-25 12:47 | IPNPDOC ---
Text Note Date of Service The patient was seen on 03/25/19. NOTE Subjective: -Doing well this morning, without chest pain or shortness of breath -No fevers, chills, diarrhea or dysuria Objective: General: NAD HEENT: PERRLA, EOMI Neck: no JVD Lungs: No zari crackles or wheezing, moving air well CV: RRR, no mrg Abdomen: Normoactive, non distended, nontender Extremities: 2+ LE ankle edema bilaterally to the knees, otherwise warm feet Neuro: Nonfocal, cranial nerves from 2-12 intact and moving all 4 extremities. Labs: Reviewed, Mag 1.6 (repleted). Elevated proBNP (on diuretics). See below Assessment: 63 years old without much contact with the healthcare system who presented to the hospital with increased shortness of breath and LE swelling and found to have bilateral pulmonary emboli, large right pleural effusion and small left pleural effusion along with elements of partial collapse, ground-glass infiltrates and cardiomegaly now on augmentin for H.flu PNA, s/p heparin gtt now on eliquis s/p R sided chest tube now discontinued, with noted exudative effusion with pending cytology, with course c/b noted right common iliac artery stenosis with occlusion of the right superficial femoral artery at its origin s/p thrombolysis, as well as AFlutter w/ RVR in the setting of bilateral PEs and PNA now s/p amio and on toprol XL and digoxin. Sepsis 2/2 Hflu PNA: Doing much better, with resolved sepsis. On presentation he had large right pleural effusion and small left pleural effusion along with elements of partial collapse, ground-glass infiltrates, and atelectasis, with leukocytosis, tachycardia and dyspnea -Was initially placed on vancomycin and Zosyn--> and switched to Augmentin for H.flu. Treated to completion for a total 8 days. -continue supportive nebs and now on room air -BCx negative Bilateral pleural effusions: Etiology still under investigation: infectious vs. possible malignancy, given its exudative nature, unlikely to be cardiac -f/u cytology -s/p chest tube by Dr. Tran, and discontinued by Dr. Hatfield (pul) on 03/20--> c/b some bleeding--> stable CXR, had stitches placed, discontinued plavix, now stable. -On Xarelto/ASA. Atrial flutter with rapid ventricular response: Resolved. Most likely secondary to pulmonary emboli and infection. -Heart rate fluctuating, currently on metoprolol 200 XL AM and increased PM dose to [address] Roman, and also remains on digoxin -On Xarelto and tolerating well -Was briefly on ASA, xarelto and plavix. Plavix now dc'd as of 03/[address] 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 -Continue Entresto -Continue metoprolol -Appreciate Cardiology recs -strict I/Os -Now started on lasix 20 PO daily Pulmonary embolism: Unprovoked pulmonary emboli -continue Xarelto -There is concern for underlying malignancy, patient lost 20 pounds for past year, has bilateral exudative effusions and unprovoked PEs --> to follow up with PCP outpatient. -Will need to repeat CT scan of the chest and CT of abdomen and pelvis after resolution of pulmonary emboli and infiltrates Right distal leg arterial insufficiency: -IR started on 03/16/19 successful SFA thrombolysis, SFA, popliteal, anterior tibial and posterior tibial artery angioplasty. -Patient has pulse on the right dorsalis pedis artery after 3 treatments of t hrombolysis. -Follow-up with interventional radiologist after discharge. -Was briefly on ASA, xarelto and plavix, now dc'd plavix after discussion with Dr. Layton on 03/20. Remains on Xarelto/ASA. Hypertension -Blood pressures under control for now Alcohol use disorder -Not in alcohol withdrawal -Social service on board Dispo: Much improved, I expect he will be medically ready within the next couple of days. Has ongoing PT, likely STR VS,Fishbone, I+O VS, Fishbone, I+O Laboratory Tests 03/25/19 05:08 03/25/19 05:09 Vital Signs Date Time Temp Pulse Resp B/P (MAP) Pulse Ox O2 Delivery O2 Flow Rate FiO2 03/25/19 08:38 107 125/67 03/25/19 04:00 98.4 18 98 Room Air I&O- Last 24 Hours up to 6 AM 03/25/19 06:00 Intake Total 1080 ml Output Total 1250 ml Balance -170 ml YVETTE ABERNATHY MD Mar 25, 2019 08:54
[2019-03-25] MEDS ORDERED: MAG SULF 1GM/100ML (MAG RUN) 1 GM in IV 1 EA IV ONE (13:00)
[2019-03-25] MEDS: ACETAMINOPHEN 500 MG TAB PO PRN (20:34)
[2019-03-26] MEDS: LEVALBUTEROL 1.25 MG/0.5 ML CONCENTRATE NEB NEB SCH ×3 (02:00→13:45)
[2019-03-26 04:00] VITALS: BP 128/64
[2019-03-26] MEDS: SLF 3 ML SYR IV SCH ×2 (06:48→09:12)
[2019-03-26 06:56] LABS: HEMATOCRIT 35.7 % (42.0-52.0); HEMOGLOBIN 11.3 g/dl (13.5-17.5); MEAN CORPUSCULAR HGB CONC 31.7 g/dl (32.0-36.5); MEAN CORPUSCULAR VOLUME 97.8 fl (80.0-96.0); PLATELET COUNT, AUTOMATED 247 10^3/uL (150-450); RED BLOOD COUNT 3.65 10^6/uL (4.30-6.10); WHITE BLOOD COUNT 8.3 10^3/uL (4.0-10.0)
[2019-03-26 07:13] LABS: BLOOD UREA NITROGEN 19 MG/DL (7-18); CALCIUM LEVEL 7.9 MG/DL (8.8-10.2); CARBON DIOXIDE LEVEL 29 MEQ/L (21-32); CHLORIDE LEVEL 104 MEQ/L (98-107); CREATININE FOR GFR 0.59 MG/DL (0.70-1.30); GLOMERULAR FILTRATION RATE > 60.0 (>49); GLUCOSE, FASTING 87 MG/DL (70-100); MAGNESIUM LEVEL 1.8 MG/DL (1.8-2.4); POTASSIUM SERUM 4.2 MEQ/L (3.5-5.1); SODIUM LEVEL 137 MEQ/L (136-145)
--- NOTE | 2019-03-26 07:24 | IPN ---
DATE OF SERVICE: 03/25/2019 Mr. Gee is examined at bedside and states that he is feeling better today compared to prior days. No issues overnight. He denies any chest pain or shortness of breath. He has been ambulating the hallways without any difficulties per the patient. On telemetry, he is noted to have a few beats of nonsustained ventricular tachycardia and maintaining a heart rate in the high 90s to low 100s. He is tolerating diuretics and cardiac medications well, including the increased dose of his Toprol XL. His BNP is also coming down significantly from admission. Vitals this morning, temperature 97.8, pulse 107, respirations 17, blood pressure 125/67, MAP of 86, pulse oximetry 95% on room air. He had a net negative balance of -895 yesterday and his weight is at 60.5 kg as documented in his chart, down from 68.5 kg on admission. He is alert and oriented times three, resting comfortably in bed, in no acute distress. His jugular venous pulse (JVP) does not appear elevated. Lungs are overall clear with some mild rales in the left lower base, more so than the right. Equal chest rise bilaterally. No accessory muscle use. Heart: Borderline tachycardiac, rate of around 110, with an irregular rhythm. Abdomen is soft and nontender. He has 2-3+ pitting edema up to his knees. No calf tenderness. LABS: WBC 8.4, hemoglobin 10.8, platelets 264. Sodium 140, potassium 4.3. BUN 21, creatinine 0.64. Magnesium 1.6. BNP 2746. ASSESSMENT AND PLAN: Mr. Gee is a 63-year-old gentleman who presented with a pulmonary embolism (PE) and right pleural effusion, atrial flutter with rapid ventricular response (RVR) and cardiomyopathy. He is gradually improving overall and his rate seems to be better controlled on his current regimen. Will continue monitoring on telemetry. He does have low magnesium as of this morning which should be repleted and his episodes of nonsustained V tach on telemetry should be monitored. Continue on a fluid restriction and he will likely also require Incruse in his diuretics. Fortunately, his blood pressure has been holding up and will allow for further adjustments. His BNP is reduced by more than half from his admission. Otherwise, he is doing well and as he nears discharge he will likely also require the assistance of our social workers as he has no support at home and lives alone.
[2019-03-26 08:00] VITALS: BP 120/76
[2019-03-26] MEDS ORDERED: XARE20TA PO (08:21)
[2019-03-26] MEDS ORDERED: ENTR1TAB7 PO (08:21)
[2019-03-26] MEDS ORDERED: METO1TAB33 PO ×2 (08:21)
[2019-03-26] MEDS ORDERED: FURO20TA2 PO (08:21)
[2019-03-26] MEDS ORDERED: FOLI1TAB11 PO (08:21)
[2019-03-26] MEDS ORDERED: MULTCAP PO (08:21)
[2019-03-26] MEDS ORDERED: ASPI81TAEC PO (08:21)
[2019-03-26] MEDS ORDERED: MAGN64TASA PO (08:21)
[2019-03-26] MEDS ORDERED: LEVA45AE INH (08:21)
[2019-03-26] MEDS ORDERED: DOCU100C16 PO (08:21)
[2019-03-26] MEDS ORDERED: PANT40TA3 PO (08:21)
[2019-03-26] MEDS ORDERED: DIGO0.253 PO (08:21)
[2019-03-26] MEDS: MOM 30ML SUSPENSION UDC PO SCH (09:00)
[2019-03-26] MEDS: DOCUSATE SODIUM 100 MG CAP PO SCH (09:00)
[2019-03-26] MEDS: ENTRESTO 49-51MG TABLET (SACUBITRIL/VALSARTAN) PO SCH (09:09)
[2019-03-26] MEDS: ASPIRIN 81 MG ENTERIC TAB PO SCH (09:09)
[2019-03-26] MEDS: DIGOXIN 0.25 MG TAB PO SCH (09:10)
[2019-03-26] MEDS: PANTOPRAZOLE 40MG TAB (PROTONIX) PO SCH (09:10)
[2019-03-26 09:11] VITALS: BP 120/76
[2019-03-26] MEDS: MULTIVITAMINS/MINERALS THERAP 1 TAB PO SCH (09:11)
[2019-03-26] MEDS: FUROSEMIDE 20 MG TAB PO SCH (09:11)
[2019-03-26] MEDS: FOLIC ACID 1 MG TAB PO SCH (09:11)
[2019-03-26] MEDS: METOPROLOL SUCC (TopROL XL) 100MG *XL* TAB PO SCH (09:11)
[2019-03-26] MEDS: RIVAROXABAN 15 MG TAB (XARELTO) PO SCH ×2 (09:12→17:44)
[2019-03-26] MEDS: MAGNESIUM CHLORIDE 64 MG TABCR (SLO MAG) PO SCH (09:12)
--- NOTE | 2019-03-26 10:48 | IPN ---
DATE: 03/26/2019 Mr. Gee is examined at bedside. No reported events overnight. He feels well, back to normal, looking forward to going home. Denies any palpitations, lightheadedness or dizziness. Rate seems to be well controlled in the 90s to 100s. Edema is much improved and has only a few intermittent beats of V-tach on telemetry. Vitals: Temperature 98.1, pulse 69, respirations 18, blood pressure 120/76, MAP of 91, 96% oxygen saturation on room air. Per his chart, he put out 1.1 liters yesterday with a net positive of 120. His weight is 60.9 kg, which is down from his documented 68.5 kg on admission. He is resting comfortably in bed, in no acute distress. Fully alert and oriented and conversant. No appreciable jugular venous distention (JVD). Cardiac: Rhythm is irregular. Rate is borderline tachycardic. No appreciable murmur, click or gallop. Abdomen is soft, nontender, nondistended. Minimal lower extremity edema, 1+ and much improved from prior days. Diminished breath sounds throughout and clear throughout without any wheezing, rhonchi or rales. No accessory muscle use. He has 2-3+ pitting edema up to his knees. No calf tenderness. LABS: WBC 8.3, hemoglobin 11.3, platelets 247. Sodium 137, potassium 4.2. BUN 19, creatinine 0.59. Magnesium 1.9. ASSESSMENT AND PLAN: Mr. Gee is a 63-year-old gentleman who presented with a pulmonary embolism (PE) and right pleural effusion, also has atrial flutter with rapid ventricular response (RVR) and history of cardiomyopathy. He is much improved today with significantly improved lower extremity edema. Continue a current regimen. From a cardiac standpoint he is okay to be discharged and followup outpatient with cardiology in April. He may benefit from some home care or additional assistance given he lives alone without any other support. His ejection fraction was extremely low during this hospitalization, around 20%, which warrants discussion for possible LifeVest, but we suspect his EF has likely improved at this point with better rate control and diuresis. Again, followup outpatient. Please discharge him on Xarelto 20 mg a day.
[2019-03-26 12:00] VITALS: BP 107/61
--- NOTE | 2019-03-26 13:17 | DS.PDOC ---
Discharge Summary General Date of Admission Mar 13, 2019 at 13:33 Date of Discharge 03/26/2019 Discharge Summary PROCEDURES PERFORMED DURING STAY: 03/14/2019: Insertion of a right lateral chest tube with Dr. Tran 03/14/2019: SFA recanalized and infusion catheter placed for overnight TPA thrombolysis with Dr. Layton 03/20/2019: Suture right lateral chest wall with Dr. Laney Hatfield ADMITTING DIAGNOSES / DISCHARGE DIAGNOSES: Sepsis 2/2 H. Influenza PNA Bilateral pleural effusions - 2/2 exudative etiology - likely 2/2 infectious cause; less likely 2/2 malignancy; unlikely 2/2 cardiac etiology Atrial flutter with rapid ventricular response - likely 2/2 pulmonary emboli and infection Systolic CHF - likely 2/2 alcoholic cardiomyopathy and long standing uncontrolled hypertension Pulmonary embolism - unprovoked Right distal leg arterial insufficiency Hypertension Alcohol use disorder DVT prophylaxis COMPLICATIONS/CHIEF COMPLAINT: Shortness of breath HISTORY OF PRESENT ILLNESS: Patient 63-year-old male with no significant past medical history who presented to the emergency room with increased shortness of breath. Patient reported that in February he had a pneumonia and was treated with doxycycline and prednisone. Patient reports that currently he is experiencing shortness of breath, increasing lower leg swelling. In the emergency room, patient had received a CT angiogram of his chest that revealed bilateral pulmonary emboli. A large right pleural effusion and small left pleural effusion along with elements of partial collapse groundglass infiltrates, atelectasis and cardiomegaly. Patient was admitted to the hospitalist service for further evaluation and treatment. Cardiac thoracic surgery was consultation for the large right-sided pleural effusion for which she received a chest tube placement. Was found that patient had occlusion of the superior femoral artery and was recanalized by Dr. Layton, of interventional radiology. HOSPITAL COURSE: Sepsis 2/2 H. Influenza PNA - Clinically has had significant improvement of his breathing and cough - Remains hemodynamically stable and afebrile - No leukocytosis - Blood cultures / Pleural fluid cultures negative; Sputum culture 03/13: H. Influenzae - s/p Vancomycin, Zosyn; Completed course of 8 days antibiotics with Augmentin Bilateral pleural effusions - 2/2 exudative etiology - likely 2/2 infectious cause; less likely 2/2 malignancy; unlikely 2/2 cardiac etiology - s/p chest tube by Dr. Tran, and discontinued by Dr. Hatfield (pulm) on 03/20 - Mild bleeding after removal of chest tube; however has stabilized - H&H has remained stable - Cytology / Cell block 03/14: Negative for malignancy - c/w Xarelto and ASA Atrial flutter with rapid ventricular response - likely 2/2 pulmonary emboli and infection - Clinically patient has had normalization of his heart rate - c/w rate control with metoprolol and digoxin - c/w full atnicoagulation with Xarelto - Dr. Roman / Cardiology on consultation Systolic CHF - likely 2/2 alcoholic cardiomyopathy and long standing uncontrolled hypertension - ECHO: global hypokinesis and estimated left ventricular ejection fraction (LVEF) of 20%. - c/w Entresto and Metoprolol - c/w Lasix 20 daily - Cardiology on consultation; appreciate their input Pulmonary embolism - unprovoked - c/w full anticoagulation with Xarelto - Discussed with patient that etiology of pulmonary embolism could not be identified; patient has a history of 20 pound weight loss. He has been strongly advised to follow-up with his primary care provider for outpatient screening (ie. Colonoscopy / Prostate) - Will need to repeat CT scan of the chest and CT of abdomen and pelvis after resolution of pulmonary emboli and infiltrates Right distal leg arterial insufficiency: - Dr. Ervin, IR started on 03/16/19 successful SFA thrombolysis, SFA, popliteal, anterior tibial and posterior tibial artery angioplasty. - Patient has pulse on the right dorsalis pedis artery after 3 treatments of thrombolysis. - Has been advised to follow-up with interventional radiologist after discharge - c/w Xarelto and ASA as per Dr. Layton; s/p Plavix Hypertension - BP remains well controlled - c/w Metoprolol, Entreto, Alcohol use disorder - No evidence of withdrawal - Advised abstinence from alcohol DVT prophylaxis - c/w full anticoagulation with Xarelto DISCHARGE MEDICATIONS: Please see below. ALLERGIES: Please see below. PHYSICAL EXAMINATION ON DISCHARGE: Vitals (See below) General: Lying in bed, no acute distress, comfortable, AAOx3 HEENT: NC, AT CVS: +S1S2 Lungs: Fair air entry b/l, no appreciable wheezing, rhonchi or rales Abdomen: Soft, ND, NT Extremities: - Edema, - Calf tenderness LABORATORY DATA: Please see below. ACTIVITY: [As tolerated]. DISCHARGE PLAN: Follow-up with PCP, Dr. Roman, Dr. Layton, Dr. Tran within 7 days Remain compliant with treatment plan and medications Return to the ER if you experience any problems DISPOSITION: Home with services DISCHARGE CONDITION: [Stable]. TIME SPENT ON DISCHARGE: 40 minutes Vital Signs/I&Os Vital Signs Date Time Temp Pulse Resp B/P (MAP) Pulse Ox O2 Delivery O2 Flow Rate FiO2 03/26/19 09:11 120 120/76 03/26/19 08:44 18 03/26/19 08:00 98.1 96 Room Air I&O- Last 24 Hours up to 6 AM 03/26/19 05:59 Intake Total 1270 ml Output Total 1400 ml Balance -130 ml Laboratory Data Labs 24H Laboratory Tests 2 03/26/19 06:08: Nucleated Red Blood Cells % (auto) 0.0, Anion Gap 4L, Glomerular Filtration Rate > 60.0, Calcium Level 7.9L, Magnesium Level 1.8 CBC/BMP Laboratory Tests 03/26/19 06:08 Discharge Medications Scheduled Aspirin (Aspirin EC) 81 Mg Tablet.dr, 81 MG PO DAILY Digoxin (Digoxin) 250 Mcg Tablet, 0.25 MG PO DAILY Docusate Sodium (Docusate Sodium) 100 Mg Capsule, 100 MG PO BID Folic Acid (Folic Acid) 1 Mg Tablet, 1 MG PO DAILY Furosemide (Furosemide) 20 Mg Tablet, 20 MG PO DAILY Magnesium Chloride (Mag64) 64 Mg Tablet.dr, 64 MG PO DAILY Metoprolol Succinate (Metoprolol Succinate) 100 Mg Tab.er.24h, 200 MG PO DAILY Metoprolol Succinate (Metoprolol Succinate) 100 Mg Tab.er.24h, 100 MG PO QHS Multivitamin (Multivitamins) 1 Each Capsule, 1 CAP PO DAILY Pantoprazole Sodium (Pantoprazole Sodium) 40 Mg Tablet.dr, 40 MG PO DAILY Rivaroxaban (Xarelto) 20 Mg Tablet, 1 TAB PO DAILY with food Sacubitril/Valsartan (Entresto 49 mg-51 mg Tablet) 1 Each Tablet, 1 TAB PO BID Scheduled PRN Levalbuterol Tartrate (Levalbuterol Tartrate Hfa) 15 Gm Hfa.aer.ad, 2 PUFF INH Q4-6HP PRN for DYSPNEA Allergies Coded Allergies: No Known Drug Allergies (Verified Allergy, Unknown, 03/13/19) HUBERT ALVARADO MD 17, 2019 13:16
[2019-03-26 16:00] VITALS: BP 123/66
== END 2019-03-26 18:41 | disposition home health service (06) | DRG 710 ==
LOC: M ED 08:30 → EDBEDREQSVC 12:39 → M ED INP 13:33 → M ICU 13:54 → M PCU 03-17 21:48
PROVIDERS: ADMIT Internal Medicine; ATTEND Internal Medicine
PROC: 0W9930Z Drainage of Right Pleural Cavity with Drainage Device, Percutaneous Approach (ICD-10-PCS; principal; 2019-03-13)
PROC: B41F1ZZ Fluoroscopy of Right Lower Extremity Arteries using Low Osmolar Contrast (ICD-10-PCS; 2019-03-14)
PROC: 3E05317 Introduction of Other Thrombolytic into Peripheral Artery, Percutaneous Approach (ICD-10-PCS; 2019-03-14)
PROC: B41F1ZZ Fluoroscopy of Right Lower Extremity Arteries using Low Osmolar Contrast (ICD-10-PCS; 2019-03-15)
PROC: 3E05317 Introduction of Other Thrombolytic into Peripheral Artery, Percutaneous Approach (ICD-10-PCS; 2019-03-15)
PROC: 04PY33Z Removal of Infusion Device from Lower Artery, Percutaneous Approach (ICD-10-PCS; 2019-03-15)
PROC: 3E05317 Introduction of Other Thrombolytic into Peripheral Artery, Percutaneous Approach (ICD-10-PCS; 2019-03-15)
PROC: 04PY33Z Removal of Infusion Device from Lower Artery, Percutaneous Approach (ICD-10-PCS; 2019-03-15)
PROC: 04PY33Z Removal of Infusion Device from Lower Artery, Percutaneous Approach (ICD-10-PCS; 2019-03-16)
PROC: 047K3ZZ Dilation of Right Femoral Artery, Percutaneous Approach (ICD-10-PCS; 2019-03-16)
PROC: 047P3ZZ Dilation of Right Anterior Tibial Artery, Percutaneous Approach (ICD-10-PCS; 2019-03-16)
PROC: 047R3ZZ Dilation of Right Posterior Tibial Artery, Percutaneous Approach (ICD-10-PCS; 2019-03-16)
PROC: 047M3ZZ Dilation of Right Popliteal Artery, Percutaneous Approach (ICD-10-PCS; 2019-03-16)
PROC: 3E05317 Introduction of Other Thrombolytic into Peripheral Artery, Percutaneous Approach (ICD-10-PCS; 2019-03-16)
PROC: B41F1ZZ Fluoroscopy of Right Lower Extremity Arteries using Low Osmolar Contrast (ICD-10-PCS; 2019-03-16)
PROC: B41F1ZZ Fluoroscopy of Right Lower Extremity Arteries using Low Osmolar Contrast (ICD-10-PCS; 2019-03-17)
PROC: 04CM3ZZ Extirpation of Matter from Right Popliteal Artery, Percutaneous Approach (ICD-10-PCS; 2019-03-17)
PROC: X27 New Technology, Cardiovascular System, Dilation (ICD-10-PCS; 2019-03-17)
PROC: 047P3ZZ Dilation of Right Anterior Tibial Artery, Percutaneous Approach (ICD-10-PCS; 2019-03-17)
PROC: 047R3ZZ Dilation of Right Posterior Tibial Artery, Percutaneous Approach (ICD-10-PCS; 2019-03-17)
PROC: 3E05317 Introduction of Other Thrombolytic into Peripheral Artery, Percutaneous Approach (ICD-10-PCS; 2019-03-17)
PROC: 0HQ5XZZ Repair Chest Skin, External Approach (ICD-10-PCS; 2019-03-20)
DX: A41.9 Sepsis, unspecified organism (principal); I26.99 Other pulmonary embolism without acute cor pulmonale; J14 Pneumonia due to Hemophilus influenzae; I50.41 Acute combined systolic (congestive) and diastolic (congestive) heart failure; J90 Pleural effusion, not elsewhere classified; I74.3 Embolism and thrombosis of arteries of the lower extremities; I82.411 Acute embolism and thrombosis of right femoral vein; E46 Unspecified protein-calorie malnutrition; I48.92 Unspecified atrial flutter; I11.0 Hypertensive heart disease with heart failure; I82.431 Acute embolism and thrombosis of right popliteal vein; I42.6 Alcoholic cardiomyopathy; I48.91 Unspecified atrial fibrillation; R04.2 Hemoptysis; J93.83 Other pneumothorax; I70.92 Chronic total occlusion of artery of the extremities; F10.10 Alcohol abuse, uncomplicated; Z79.899 Other long term (current) drug therapy; F17.200 Nicotine dependence, unspecified, uncomplicated; I25.10 Atherosclerotic heart disease of native coronary artery without angina pectoris; E86.0 Dehydration; I08.0 Rheumatic disorders of both mitral and aortic valves; L76.22 Postprocedural hemorrhage of skin and subcutaneous tissue following other procedure

== ENCOUNTER → 2019-04-01 | Outpatient (CLI) | payer MEDICAID ==
[~2019-04-01] MED LIST: ALBU8.5H INH; ASPI81TAEC PO; DIGO0.253 PO; DOCU100C16 PO; DOXY100T27 PO; ENTR1TAB7 PO; FOLI1TAB11 PO; FURO20TA2 PO; LEVA45AE INH; MAGN64TASA PO; METO1TAB33 PO; MULTCAP PO; PANT40TA3 PO; PRED20TA PO; XARE20TA PO
--- NOTE | 2019-04-01 10:44 | REPPI ---
Clinical: Pleural effusion. Technique: PA and lateral. Comparison: 03/23/2019. Findings: Small right pleural effusion and right basilar atelectasis appears relatively stable. Mediastinum and cardiac silhouette normal. Old right rib fractures again noted. No pneumothorax. Impression: Stable small right pleural effusion and minimal residual right basilar atelectasis. Electronically Signed by Regino Canela MD 04/01/2019 10:35 A
== END ==
LOC: M PLAIMG 10:18
PROVIDERS: ATTEND Thoracic Surgery (Cardiothoracic Vascular Surgery)
DX: J90 Pleural effusion, not elsewhere classified (principal); J98.11 Atelectasis

== ENCOUNTER 2019-04-09 10:50 | Emergency (ER) | payer MEDICAID ==
[~2019-04-09] VITALS: Ht 170.2 cm; Wt 59.2 kg
[2019-04-09 11:52] LABS: HEMATOCRIT 41.3 % (42.0-52.0); HEMOGLOBIN 12.9 g/dl (13.5-17.5); MEAN CORPUSCULAR HEMOGLOBIN 30.2 pg (27.0-33.0); MEAN CORPUSCULAR HGB CONC 31.2 g/dl (32.0-36.5); MEAN CORPUSCULAR VOLUME 96.7 fl (80.0-96.0); PLATELET COUNT, AUTOMATED 310 10^3/uL (150-450); RED BLOOD COUNT 4.27 10^6/uL (4.30-6.10); WHITE BLOOD COUNT 9.8 10^3/uL (4.0-10.0)
[2019-04-09 12:17] LABS: INFLUENZA A AMPLIFICATION NEGATIVE (NEGATIVE); INFLUENZA B AMPLIFICATION NEGATIVE (NEGATIVE)
[2019-04-09 12:17] LABS: ALBUMIN 2.8 GM/DL (3.2-5.2); ALT/SGPT 34 U/L (12-78); BILIRUBIN,TOTAL 0.3 MG/DL (0.2-1.0); BLOOD UREA NITROGEN 36 MG/DL (7-18); CALCIUM LEVEL 8.9 MG/DL (8.8-10.2); CARBON DIOXIDE LEVEL 28 MEQ/L (21-32); CHLORIDE LEVEL 106 MEQ/L (98-107); CREATININE FOR GFR 0.83 MG/DL (0.70-1.30); GLOMERULAR FILTRATION RATE > 60.0 (>49); GLUCOSE, FASTING 86 MG/DL (70-100); POTASSIUM SERUM 5.1 MEQ/L (3.5-5.1); SODIUM LEVEL 140 MEQ/L (136-145); TOTAL PROTEIN 7.2 GM/DL (6.4-8.2)
[2019-04-09 13:37] VITALS: BP 104/58
== END 2019-04-09 14:00 | disposition home or self-care (01) ==
LOC: M ED 10:50
DX: I95.9 Hypotension, unspecified (principal); T50.905A Adverse effect of unspecified drugs, medicaments and biological substances, initial encounter; I11.0 Hypertensive heart disease with heart failure; F17.210 Nicotine dependence, cigarettes, uncomplicated; Z79.51 Long term (current) use of inhaled steroids; Z79.82 Long term (current) use of aspirin; Z79.899 Other long term (current) drug therapy

== ENCOUNTER → 2019-04-16 | Outpatient (POV) | payer MEDICAID, OTHER ==
[~2019-04-16] VITALS: Ht 170.2 cm; Wt 57.3 kg
[2019-04-16 10:45] VITALS: BP 107/70
--- NOTE | 2019-04-17 16:29 | IRPN ---
[facility] IR Progress Note IR Progress Note DATE: Apr 16, 2019 FOLLOW-UP: Several weeks status post extensive right lower extremity arterial thrombectomy and stenting after presenting with cold leg. No further pain or discomfort in the legs. No ulcers or sores. Denies intermittent claudication or rest pain. No chest pain, paroxysmal nocturnal dyspnea, orthopnea or shortness of breath. ON EXAMINATION: Left groin access site appears well healed. No pulsatile mass. Right lower extremity: Femoral pulse 2+ popliteal pulse 2+ DP PT plus no edema. Warm to touch. Left lower extremity: Femoral pulse 2+ popliteal pulse 2 per DP PT plus no edema. Warm to touch. IMPRESSION: Doing well status post right lower extremity thrombectomy for acute cold leg. Patient states he's quit smoking. Patient advised to exercise, continue aspirin and Xarelto. Advised on importance of good blood pressure and cholesterol control. No further follow-up scheduled unless initiated by patient and or primary care. Thank you for this referral Allergies Coded Allergies: No Known Drug Allergies (Verified Allergy, Unknown, 03/13/19) VS,Fishbone, I+O VS, Fishbone, I+O Vital Signs Date Time Temp Pulse Resp B/P (MAP) Pulse Ox O2 Delivery O2 Flow Rate FiO2 04/16/19 10:45 98.1 92 18 107/70 (82) 97 Room Air JOHANNY SINGLETARY MD Apr 17, 2019 16:29
== END ==
LOC: M IRPOV 09:57
PROVIDERS: ATTEND Radiology Diagnostic Radiology
DX: Z86.718 Personal history of other venous thrombosis and embolism (principal); Z79.01 Long term (current) use of anticoagulants; Z72.0 Tobacco use

== ENCOUNTER → 2019-04-22 | Outpatient (REF) | payer OTHER ==
[2019-04-22 13:14] LABS: BASO # 0.1 10^3/uL (0.0-0.2); BASO % 0.5 % (0.0-1.0); EOS # 0.2 10^3/uL (0.0-0.5); EOS % 1.9 % (0.0-3.0); HEMATOCRIT 41.4 % (42.0-52.0); HEMOGLOBIN 12.9 g/dl (13.5-17.5); LYMPH # 3.5 10^3/uL (1.5-5.0); LYMPH % 35.4 % (24.0-44.0); MEAN CORPUSCULAR HGB CONC 31.2 g/dl (32.0-36.5); MEAN CORPUSCULAR VOLUME 96.3 fl (80.0-96.0); MONO # 0.8 10^3/uL (0.0-0.8); MONO % 7.6 % (0.0-5.0); NEUTROPHILS # 5.4 10^3/uL (1.5-8.5); NEUTROPHILS % 54.4 % (36.0-66.0); PLATELET COUNT, AUTOMATED 179 10^3/uL (150-450)
[2019-04-22 13:49] LABS: ALBUMIN 3.3 GM/DL (3.2-5.2); ALT/SGPT 20 U/L (12-78); BILIRUBIN,DIRECT 0.1 MG/DL (0.0-0.2); BILIRUBIN,TOTAL 0.4 MG/DL (0.2-1.0); BLOOD UREA NITROGEN 25 MG/DL (7-18); CARBON DIOXIDE LEVEL 27 MEQ/L (21-32); CHLORIDE LEVEL 103 MEQ/L (98-107); CHOLESTEROL LEVEL 214 MG/DL (<200); CHOLESTEROL RISK RATIO 4.367 (<5); CREATININE FOR GFR 0.83 MG/DL (0.70-1.30); DIGOXIN LEVEL 2.1 NG/ML (0.5-2.0); FOLATE > 24.0 NG/ML; GLOMERULAR FILTRATION RATE > 60.0 (>49); GLUCOSE, FASTING 86 MG/DL (70-100); HDL CHOLESTEROL 49 MG/DL (>40); LDL CHOLESTEROL 141 MG/DL (<100); MAGNESIUM LEVEL 1.9 MG/DL (1.8-2.4); NON-HDL-C 165 MG/DL; NT-PRO BNP 1255 PG/ML (<125); POTASSIUM SERUM 4.6 MEQ/L (3.5-5.1); SODIUM LEVEL 138 MEQ/L (136-145); TOTAL 25(OH) VITAMIN D 22.1 NG/ML (30.0-100.0); TOTAL PROTEIN 7.1 GM/DL (6.4-8.2); TRIGLYCERIDES LEVEL 118 MG/DL (<150); VITAMIN B12 LEVEL 461 PG/ML
[2019-04-22 13:58] LABS: HEPATITIS B SURFACE ANTIGEN NEGATIVE (NEGATIVE)
[2019-04-22 14:14] LABS: HEMOGLOBIN A1c 6.1 %
[2019-04-22 14:24] LABS: HEPATITIS C VIRUS ABY INDEX < 0.0 INDEX (<0.8)
[2019-04-22 14:27] LABS: HEPATITIS A ANTIBODY IGM NEGATIVE (NEGATIVE)
[2019-04-22 14:59] LABS: HEPATITIS B CORE ANTIBODY IGM POSITIVE (NEGATIVE)
== END ==
LOC: M SHH 11:43
PROVIDERS: ATTEND Physician Assistant
DX: Z13.29 Encounter for screening for other suspected endocrine disorder (principal); F10.11 Alcohol abuse, in remission; Z13.220 Encounter for screening for lipoid disorders; I50.30 Unspecified diastolic (congestive) heart failure

== ENCOUNTER → 2019-04-30 | Outpatient (CLI) | payer OTHER ==
[2019-04-30 13:33] LABS: DIGOXIN LEVEL 1.4 NG/ML (0.5-2.0)
[2019-05-01 10:12] LABS: HEPATITIS B SURFACE ANTIBODY NEGATIVE (POSITIVE)
[2019-05-01 10:22] LABS: HEPATITIS B SURFACE ANTIGEN NEGATIVE (NEGATIVE)
[2019-05-01 11:03] LABS: HEPATITIS B CORE ANTIBODY IGM POSITIVE (NEGATIVE)
== END ==
LOC: M WUC 10:12
PROVIDERS: ATTEND Physician Assistant
DX: K75.2 Nonspecific reactive hepatitis (principal)

== ENCOUNTER → 2019-04-30 | Outpatient (CLI) | payer OTHER ==
--- NOTE | 2019-05-01 02:59 | REP ---
Clinical: Abdominal pain. Alcohol abuse. Technique: Real time tavares scale ultrasound examination using curved array transducer. Findings: Liver and visualized pancreas are normal in contour, size, echogenicity without focal hepatic or pancreatic lesion identified. The gallbladder is normal and without gallstones, significant wall thickening, or pericholecystic fluid. No biliary ductal dilatation is appreciated and the common bile duct measures 4.3 mm diameter. Right kidney is normal in reniform shape without hydronephrosis and measures 11.1 x 4.7 x 4.8 cm. No ascites. Impression: Normal limited abdominal ultrasound. Electronically Signed by Regino Canela MD 05/01/2019 02:50 A
--- NOTE | 2019-05-01 03:02 | REP ---
Clinical: Hypertension . Technique: Vallejo scale and color Doppler evaluation using linear high frequency transducer Findings: Two-dimensional vallejo scale and color images demonstrate bilateral mixed atheromatous plaquing elements of posterior shadowing limiting examination. No focal area of stenosis or occlusion is identified. Normal laminar flow noted. Color Doppler interrogation demonstrates arterial wave patterns and normal velocities with elements of spectral broadening primarily involving the left carotid bulb. Normal flow direction is appreciated in the bilateral vertebral arteries. RIGHT (cm/s) LEFT (cm/s) ICA peak systolic velocity 90.2 108.0 ICA diastolic velocity 27.5 33.3 ECA peak systolic velocity 91.0 69.5 CCA peak systolic velocity 47.1 50.4 ICA/CCA ratio 1.92 2.14 Impression: Moderate mixed atheromatous plaquing elements of posterior shadowing limiting evaluation primarily at the level of the left carotid bulb. Based on set standards narrowing is in the less than 50% range and no focal area of stenosis or occlusion is identified. Electronically Signed by Regino Canela MD 05/01/2019 02:54 A
== END ==
LOC: M RAD 06:56
PROVIDERS: ATTEND Physician Assistant
DX: I10 Essential (primary) hypertension (principal); F10.10 Alcohol abuse, uncomplicated

== ENCOUNTER → 2019-05-23 | Outpatient (REF) | payer OTHER ==
[2019-05-23 11:45] LABS: ALBUMIN 3.4 GM/DL (3.2-5.2); ALT/SGPT 26 U/L (12-78); BILIRUBIN,TOTAL 0.2 MG/DL (0.2-1.0); BLOOD UREA NITROGEN 35 MG/DL (7-18); CALCIUM LEVEL 9.2 MG/DL (8.8-10.2); CARBON DIOXIDE LEVEL 29 MEQ/L (21-32); CHLORIDE LEVEL 103 MEQ/L (98-107); CREATININE FOR GFR 0.98 MG/DL (0.70-1.30); GLOMERULAR FILTRATION RATE > 60.0 (>49); GLUCOSE, FASTING 91 MG/DL (70-100); POTASSIUM SERUM 4.8 MEQ/L (3.5-5.1); SODIUM LEVEL 137 MEQ/L (136-145); TOTAL PROTEIN 7.3 GM/DL (6.4-8.2)
[2019-05-24 09:56] LABS: HIV 1&2 SCREEN CENTAUR NEGATIVE (NEGATIVE)
== END ==
LOC: M SFHCPLAZ 09:05
PROVIDERS: ATTEND Internal Medicine Infectious Disease
DX: R76.8 Other specified abnormal immunological findings in serum (principal)

== ENCOUNTER → 2019-06-10 | Outpatient (CLI) | payer OTHER ==
[2019-06-10 13:54] LABS: ALBUMIN 3.3 GM/DL (3.2-5.2); ALT/SGPT 20 U/L (12-78); BILIRUBIN,TOTAL 0.4 MG/DL (0.2-1.0); BLOOD UREA NITROGEN 24 MG/DL (7-18); CALCIUM LEVEL 8.9 MG/DL (8.8-10.2); CARBON DIOXIDE LEVEL 29 MEQ/L (21-32); CHLORIDE LEVEL 108 MEQ/L (98-107); CHOLESTEROL LEVEL 141 MG/DL (<200); CHOLESTEROL RISK RATIO 3.133 (<5); CREATININE FOR GFR 0.89 MG/DL (0.70-1.30); GLOMERULAR FILTRATION RATE > 60.0 (>49); GLUCOSE, FASTING 91 MG/DL (70-100); HDL CHOLESTEROL 45 MG/DL (>40); LDL CHOLESTEROL 81 MG/DL (<100); NON-HDL-C 96 MG/DL; POTASSIUM SERUM 4.3 MEQ/L (3.5-5.1); SODIUM LEVEL 141 MEQ/L (136-145); TRIGLYCERIDES LEVEL 75 MG/DL (<150)
[2019-06-10 15:12] LABS: HEMOGLOBIN A1c 6.1 %
== END ==
LOC: M WUC 08:48
PROVIDERS: ATTEND Physician Assistant
DX: R73.03 Prediabetes (principal)

== ENCOUNTER → 2019-08-31 | Outpatient (CLI) | payer OTHER ==
[~2019-08-31] MED LIST changes: +ELIQ2.5T PO
== END ==
LOC: M LABSMTC 09:15
PROVIDERS: ATTEND Anesthesiology
DX: Z01.818 Encounter for other preprocedural examination (principal); Z11.59 Encounter for screening for other viral diseases

== ENCOUNTER 2019-09-03 06:22 | Day surgery (SDC) | payer OTHER ==
[~2019-09-03] VITALS: Ht 170.2 cm; Wt 74.1 kg
[2019-09-03] MEDS ORDERED: LR 1,000 ML IV ONE (07:00)
[2019-09-03] MEDS ORDERED: LIDOCAINE 2% 100MG/5ML SDV (FOR ANES.) As Ordered ONE (07:03)
[2019-09-03] MEDS ORDERED: propofoL 200 MG/20 ML VIAL As Ordered ONE (07:03)
[2019-09-03] MEDS ORDERED: METOPROLOL SUCC *XL* 25MG TAB (TopROL *XL*) PO ONE (08:00)
[2019-09-03 08:11] VITALS: BP 129/70
[2019-09-03 08:43] VITALS: BP 132/85
[2019-09-03] MEDS ORDERED: fentaNYL 100 MCG/2 ML INJECTION (J3010) IV PRN (09:00)
[2019-09-03] MEDS ORDERED: ONDANSETRON 4MG/2ML VIAL IV PRN (09:00)
[2019-09-03] MEDS ORDERED: LR 1,000 ML IV SCH (09:00)
--- NOTE | 2019-09-03 13:00 | RO ---
DATE OF PROCEDURE: 09/03/2019 PREOPERATIVE DIAGNOSIS: POSTOPERATIVE DIAGNOSIS: PROCEDURE: DC cardioversion. SURGEON: Shawna Roman MD FIRE EXTINGUISHER INSPECTOR: None ANESTHESIA: Wicho Mai CRNA DIAGNOSIS: Atrial flutter. BRIEF HISTORY: Mr. Gee is a 64-year-old man who was diagnosed with atrial fibrillation/flutter with secondary tachycardia-induced cardiomyopathy in May 2019. He was a rate controlled, anticoagulated, and started on amiodarone. Follow-up transthoracic echocardiogram revealed recovery of left ventricular (LV) systolic function, but he remained in atrial fibrillation/flutter; and consequently, we decided to proceed with DC cardioversion. I explained the nature of the procedure, potential complications, and alternatives on outpatient basis. He did sign appropriate consent, and I reiterated it with him again on the day of the procedure. PROCEDURE: The patient presented in fasting condition. He was examined and 12-lead electrocardiogram (ECG) confirmed presence of atrial flutter with 2:1 conduction. He was brought to recovery room. After all appropriate monitors were applied and appropriate time-out was taken, he was cardioverted with 200 joules of energy applied with defibrillator patches in anterior position. There was no post-conversion pause, and the patient resumed sinus rhythm. He tolerated procedure overall well, and there were no immediate complications. He will be seen in the office later this week. His chronic medications will be continued. MONI
--- NOTE | 2019-09-03 18:49 | ECGEPIP ---
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 Increased rate from 03/17/19. Electronically Signed on 09-03-2019 18:49:15 EDT by Angelo Glover
--- NOTE | 2019-09-03 18:50 | ECGEPIP ---
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 Rule out prior septal infarction Rhythm change from earlier the same day. Electronically Signed on 09-03-2019 18:50:22 EDT by Angelo Glover
== END 2019-09-03 09:23 | disposition home or self-care (01) ==
LOC: M SDC 06:22
PROVIDERS: ATTEND Internal Medicine Cardiovascular Disease
DX: I48.92 Unspecified atrial flutter (principal); I48.91 Unspecified atrial fibrillation; I10 Essential (primary) hypertension; I73.9 Peripheral vascular disease, unspecified; E78.49 Other hyperlipidemia; Z86.711 Personal history of pulmonary embolism; Z79.01 Long term (current) use of anticoagulants; Z87.891 Personal history of nicotine dependence; I42.9 Cardiomyopathy, unspecified
CPT/HCPCS: 92960; 93005; G0480

== ENCOUNTER → 2019-10-18 | Outpatient (CLI) | payer OTHER ==
[~2019-10-18] MED LIST changes: +PANT40TA29 PO; -PANT40TA3 PO
[2019-10-18 16:28] LABS: BLOOD UREA NITROGEN 31 MG/DL (7-18); CALCIUM LEVEL 8.6 MG/DL (8.8-10.2); CARBON DIOXIDE LEVEL 28 MEQ/L (21-32); CHLORIDE LEVEL 112 MEQ/L (98-107); CREATININE FOR GFR 1.17 MG/DL (0.70-1.30); GLOMERULAR FILTRATION RATE > 60.0 (>49); GLUCOSE, FASTING 84 MG/DL (70-100); POTASSIUM SERUM 4.1 MEQ/L (3.5-5.1); SODIUM LEVEL 143 MEQ/L (136-145)
== END ==
LOC: M WUC 13:52
PROVIDERS: ATTEND Nurse Practitioner Family
DX: I42.9 Cardiomyopathy, unspecified (principal)

== ENCOUNTER → 2020-04-01 | Outpatient (CLI) | payer OTHER ==
--- NOTE | 2020-04-01 09:38 | REP ---
INDICATION: UNSPECIFIED DIASTOLIC CONGESTIVE HEART FAILURE COMPARISON: 04/01/2019 TECHNIQUE: PA and lateral. FINDINGS: Mediastinum and cardiac silhouette are normal. Lung rodarte demonstrate stable chronic interstitial changes and emphysematous disease. Previously noted right pleural effusion has essentially resolved with suspected minimal chronic pleural scarring now identified. Left hemithorax is clear. No acute consolidation. No pneumothorax. Skeletal structures demonstrate degenerative changes and old healed right rib fractures. IMPRESSION: Chronic changes. Presumed chronic right pleural thickening and previously noted right effusion appears essentially resolved. <Electronically signed by Regino Canela > 04/01/20 [id number]
== END ==
LOC: M WUC 08:16
PROVIDERS: ATTEND Family Medicine
DX: I50.30 Unspecified diastolic (congestive) heart failure (principal)

== ENCOUNTER → 2020-07-09 | Outpatient (CLI) | payer OTHER ==
[~2020-07-09] MED LIST changes: +ASPI-569 PO; -ASPI81TAEC PO
[2020-07-09 10:50] LABS: BASO # 0.1 10^3/uL (0.0-0.2); BASO % 0.7 % (0.0-1.0); EOS # 0.1 10^3/uL (0.0-0.5); EOS % 1.2 % (0.0-3.0); HEMATOCRIT 47.7 % (42.0-52.0); HEMOGLOBIN 15.7 g/dl (13.5-17.5); LYMPH # 3.7 10^3/uL (1.5-5.0); LYMPH % 39.8 % (24.0-44.0); MEAN CORPUSCULAR HEMOGLOBIN 30.8 pg (27.0-33.0); MEAN CORPUSCULAR HGB CONC 32.9 g/dl (32.0-36.5); MEAN CORPUSCULAR VOLUME 93.5 fl (80.0-96.0); MONO # 0.8 10^3/uL (0.0-0.8); MONO % 8.5 % (2.0-8.0); NEUTROPHILS # 4.6 10^3/uL (1.5-8.5); NEUTROPHILS % 49.5 % (36.0-66.0); PLATELET COUNT, AUTOMATED 171 10^3/uL (150-450); WHITE BLOOD COUNT 9.2 10^3/uL (4.0-10.0)
[2020-07-09 13:34] LABS: ALBUMIN 3.8 GM/DL (3.2-5.2); ALT/SGPT 41 U/L (12-78); BILIRUBIN,TOTAL 0.5 MG/DL (0.2-1.0); BLOOD UREA NITROGEN 25 MG/DL (7-18); CALCIUM LEVEL 9.3 MG/DL (8.8-10.2); CARBON DIOXIDE LEVEL 25 MEQ/L (21-32); CHLORIDE LEVEL 104 MEQ/L (98-107); CHOLESTEROL LEVEL 152 MG/DL (<200); CREATININE FOR GFR 1.11 MG/DL (0.70-1.30); GLOMERULAR FILTRATION RATE > 60.0 (>49); GLUCOSE, FASTING 88 MG/DL (70-100); HDL CHOLESTEROL 50 MG/DL (>40); LDL CHOLESTEROL 87 MG/DL (<100); NON-HDL-C 102 MG/DL; POTASSIUM SERUM 4.4 MEQ/L (3.5-5.1); SODIUM LEVEL 137 MEQ/L (136-145); TOTAL PROTEIN 7.3 GM/DL (6.4-8.2); TRIGLYCERIDES LEVEL 74 MG/DL (<150)
== END ==
LOC: M WUC 08:07
PROVIDERS: ATTEND Family Medicine
DX: E78.00 Pure hypercholesterolemia, unspecified (principal); E55.9 Vitamin D deficiency, unspecified

== ENCOUNTER → 2020-09-04 | Outpatient (CLI) | payer OTHER ==
[~2020-09-04] MED LIST changes: +METO1TAB7
== END ==
LOC: M LABSMTC 09:34
PROVIDERS: ATTEND Anesthesiology
DX: Z20.828 Contact with and (suspected) exposure to other viral communicable diseases (principal); Z11.59 Encounter for screening for other viral diseases

== ENCOUNTER 2020-09-09 10:03 | Day surgery (SDC) | payer OTHER ==
[~2020-09-09] VITALS: Ht 170.2 cm; Wt 82.9 kg
[~2020-09-09 10:03] MED LIST changes: +LIDOCAINE 2% 100MG/5ML SDV (FOR ANES.) As Ordered ONE; +propofoL 200 MG/20 ML VIAL As Ordered ONE
[2020-09-09] MEDS ORDERED: NS 1,000 ML IV ONE (10:40)
--- NOTE | 2020-09-09 12:14 | ROOR ---
Patient Name: Earl Gee Procedure Date: 09/09/2020 11:39 AM Date of : 1955 Age: 65 Room: [facility] Gender: Male Note Status: Finalized Procedure: Colonoscopy Indications: Screening for colorectal malignant neoplasm Providers: Noah Akbar MD Referring MD: Nazanin CHAKRABORTY DO Requesting Provider: Medicines: Monitored Anesthesia Care Complications: No immediate complications. Procedure: Pre-Anesthesia Assessment: - Prior to the procedure, a History and Physical was performed, and patient medications and allergies were reviewed. The patient is competent. The risks and benefits of the procedure and the sedation options and risks were discussed with the patient. All questions were answered and informed consent was obtained. Patient identification and proposed procedure were verified by the physician, the nurse and the compliance technician in the endoscopy suite. Mental Status Examination: alert and oriented. Airway Examination: normal oropharyngeal airway and neck mobility. Respiratory Examination: clear to auscultation. CV Examination: normal. Prophylactic Antibiotics: The patient does not require prophylactic antibiotics. Prior Anticoagulants: The patient has taken Eliquis (apixaban), last dose was 4 days prior to procedure. ASA Grade Assessment: III - A patient with severe systemic disease. After reviewing the risks and benefits, the patient was deemed in satisfactory condition to undergo the procedure. The anesthesia plan was to use monitored anesthesia care (MAC). Immediately prior to administration of medications, the patient was re-assessed for adequacy to receive sedatives. The heart rate, respiratory rate, oxygen saturations, blood pressure, adequacy of pulmonary ventilation, and response to care were monitored throughout the procedure. The physical status of the patient was re-assessed after the procedure. The Colonoscope was introduced through the anus and advanced to the terminal ileum, with identification of the appendiceal orifice and IC valve. The colonoscopy was performed without difficulty. The patient tolerated the procedure well. The quality of the bowel preparation was good. Findings: The perianal and digital rectal examinations were normal. There is no endoscopic evidence of mass or polyps in the entire colon. Multiple medium-mouthed diverticula were found in the sigmoid colon and descending colon. Yakelin-diverticular erythema was seen. The retroflexed view of the distal rectum and anal verge was normal and showed no anal or rectal abnormalities. Impression: - Mild diverticulosis in the sigmoid colon and in the descending colon. Yakelin-diverticular erythema was seen. - The distal rectum and anal verge are normal on retroflexion view. - No specimens collected. Recommendation: - Discharge patient to home (ambulatory). - Repeat colonoscopy in 10 years for screening purposes. - Resume Eliquis (apixaban) at prior dose today. Refer to primary physician for further adjustment of therapy. Procedure Code(s): --- Professional --- 93303, Colonoscopy, flexible; diagnostic, including collection of specimen(s) by brushing or washing, when performed (separate procedure) Diagnosis Code(s): --- Professional --- Z12.11, Encounter for screening for malignant neoplasm of colon K57.30, Diverticulosis of large intestine without perforation or abscess without bleeding CPT copyright 2019 [employer]. All rights reserved. The codes documented in this report are preliminary and upon manager route review may be revised to meet current compliance requirements. Noah Akbar MD Noah Akbar MD 09/09/2020 12:13:23 PM Electronically signed by Noah Akbar MD Number of Addenda: 0 Note Initiated On: 09/09/2020 11:39 AM Estimated Blood Loss: Estimated blood loss: none.
[2020-09-09 12:35] VITALS: BP 186/75
== END 2020-09-09 13:00 | disposition home or self-care (01) ==
LOC: M OPP 10:03
PROVIDERS: ATTEND Surgery
DX: Z12.11 Encounter for screening for malignant neoplasm of colon (principal); K57.30 Diverticulosis of large intestine without perforation or abscess without bleeding; I48.91 Unspecified atrial fibrillation; F17.210 Nicotine dependence, cigarettes, uncomplicated; Z79.82 Long term (current) use of aspirin; Z79.899 Other long term (current) drug therapy

== ENCOUNTER → 2020-10-09 | Outpatient (CLI) | payer OTHER ==
[~2020-10-09] MED LIST changes: -LIDOCAINE 2% 100MG/5ML SDV (FOR ANES.) As Ordered ONE; -propofoL 200 MG/20 ML VIAL As Ordered ONE
[2020-10-09 10:31] LABS: BASO # 0.1 10^3/uL (0.0-0.2); BASO % 0.5 % (0.0-1.0); EOS # 0.1 10^3/uL (0.0-0.5); EOS % 0.8 % (0.0-3.0); HEMATOCRIT 45.6 % (42.0-52.0); HEMOGLOBIN 15.1 g/dl (13.5-17.5); LYMPH # 3.5 10^3/uL (1.5-5.0); LYMPH % 37.4 % (24.0-44.0); MEAN CORPUSCULAR HEMOGLOBIN 30.2 pg (27.0-33.0); MEAN CORPUSCULAR HGB CONC 33.1 g/dl (32.0-36.5); MEAN CORPUSCULAR VOLUME 91.2 fl (80.0-96.0); MONO # 0.6 10^3/uL (0.0-0.8); MONO % 6.8 % (2.0-8.0); NEUTROPHILS # 5.1 10^3/uL (1.5-8.5); NEUTROPHILS % 54.3 % (36.0-66.0); PLATELET COUNT, AUTOMATED 183 10^3/uL (150-450); WHITE BLOOD COUNT 9.4 10^3/uL (4.0-10.0)
[2020-10-09 10:41] LABS: HEMOGLOBIN A1c 5.7 %
[2020-10-09 10:51] LABS: ALBUMIN 3.6 GM/DL (3.2-5.2); ALT/SGPT 36 U/L (12-78); BILIRUBIN,TOTAL 0.5 MG/DL (0.2-1.0); BLOOD UREA NITROGEN 33 MG/DL (7-18); CALCIUM LEVEL 8.9 MG/DL (8.8-10.2); CARBON DIOXIDE LEVEL 24 MEQ/L (21-32); CHLORIDE LEVEL 105 MEQ/L (98-107); CREATININE FOR GFR 0.95 MG/DL (0.70-1.30); GLOMERULAR FILTRATION RATE > 60.0 (>49); GLUCOSE, FASTING 87 MG/DL (70-100); POTASSIUM SERUM 4.3 MEQ/L (3.5-5.1); SODIUM LEVEL 138 MEQ/L (136-145); TOTAL PROTEIN 7.1 GM/DL (6.4-8.2)
== END ==
LOC: M WUC 08:19
PROVIDERS: ATTEND Physician Assistant
DX: Z12.5 Encounter for screening for malignant neoplasm of prostate (principal); I73.9 Peripheral vascular disease, unspecified

== ENCOUNTER → 2021-01-12 | Outpatient (CLI) | payer OTHER ==
[2021-01-12 10:09] LABS: BASO % 0.4 % (0.0-1.0); EOS # 0.1 10^3/uL (0.0-0.5); HEMATOCRIT 44.3 % (42.0-52.0); LYMPH # 3.1 10^3/uL (1.5-5.0); LYMPH % 33.9 % (24.0-44.0); MEAN CORPUSCULAR HEMOGLOBIN 30.7 pg (27.0-33.0); MEAN CORPUSCULAR HGB CONC 33.9 g/dl (32.0-36.5); MEAN CORPUSCULAR VOLUME 90.6 fl (80.0-96.0); MONO # 0.7 10^3/uL (0.0-0.8); NEUTROPHILS # 5.3 10^3/uL (1.5-8.5); NEUTROPHILS % 57.4 % (36.0-66.0); PLATELET COUNT, AUTOMATED 183 10^3/uL (150-450); RED BLOOD COUNT 4.89 10^6/uL (4.30-6.10); WHITE BLOOD COUNT 9.2 10^3/uL (4.0-10.0)
[2021-01-12 10:58] LABS: ALBUMIN 3.5 GM/DL (3.2-5.2); ALT/SGPT 36 U/L (12-78); BILIRUBIN,TOTAL 0.6 MG/DL (0.2-1.0); BLOOD UREA NITROGEN 25 MG/DL (7-18); CARBON DIOXIDE LEVEL 27 MEQ/L (21-32); CHLORIDE LEVEL 107 MEQ/L (98-107); CHOLESTEROL LEVEL 143 MG/DL (<200); CHOLESTEROL RISK RATIO 2.918 (<5); CREATININE FOR GFR 1.05 MG/DL (0.70-1.30); FREE T4 1.31 NG/DL (0.76-1.46); GLOMERULAR FILTRATION RATE > 60.0 (>49); GLUCOSE, FASTING 89 MG/DL (70-100); HDL CHOLESTEROL 49 MG/DL (>40); LDL CHOLESTEROL 78 MG/DL (<100); MAGNESIUM LEVEL 1.7 MG/DL (1.8-2.4); NON-HDL-C 94 MG/DL; POTASSIUM SERUM 4.3 MEQ/L (3.5-5.1); SODIUM LEVEL 137 MEQ/L (136-145); TOTAL PROTEIN 7.2 GM/DL (6.4-8.2); TRIGLYCERIDES LEVEL 79 MG/DL (<150)
[2021-01-12 11:00] LABS: TOTAL 25(OH) VITAMIN D 52.2 NG/ML (30.0-100.0)
[2021-01-12 12:01] LABS: HEMOGLOBIN A1c 5.5 %
[2021-01-13 23:09] LABS: PSA TOTAL 3.1 ng/mL (0.0-4.0)
== END ==
LOC: M WUC 08:10
PROVIDERS: ATTEND Family Medicine
DX: E78.00 Pure hypercholesterolemia, unspecified (principal); R73.03 Prediabetes; R97.20 Elevated prostate specific antigen [PSA]; K21.9 Gastro-esophageal reflux disease without esophagitis

== ENCOUNTER → 2021-01-14 | Outpatient (CLI) | payer OTHER ==
[~2021-01-14] MED LIST changes: +ISOVUE-370 76% 100ML VIAL As Ordered ONE
--- NOTE | 2021-01-14 11:24 | REP ---
INDICATION: SMOKER, SOB, COUGHING UP BLOOD, EVAL FOR PE. COMPARISON: Comparison chest CT study March 16, 2019. Comparison CT study is also reviewed from 03/13/2019. TECHNIQUE: Contrast dose: 100 ML of Isovue [address] technique: Helical scanning is acquired and overlapping 1.5 mm and contiguous 3 mm axial images are reformatted. In addition, maximum intensity projection and multiplanar re-formation images are generated in sagittal and coronal imaging projections. FINDINGS: There is good opacification in the pulmonary arterial tree. There is no evidence of vessel cut off or filling defect to suggest pulmonary embolus. Homogeneous opacity is seen in the thoracic aorta. There is no evidence of aneurysm or dissection. There is no evidence of hilar or mediastinal mass or adenopathy. There is some mild diffuse pleural thickening at the right base consistent with pleural scarring. A small pleural plaque is seen at the dome of the diaphragm. There is linear platelike atelectasis in the right middle lobe and lower lobe. Lung window settings demonstrate there are several tiny peribronchovascular nodular opacities in the right upper lobe consistent with inflammatory change. These are new from the prior study. No other pulmonary nodule is appreciated. No lung mass is seen. The left lung is clear. In the upper abdomen, normal adrenal glands are seen. The visualized upper abdominal structures are remarkable for vascular calcification. IMPRESSION: No CT evidence of pulmonary embolus. Multiple peribronchovascular nodular opacities in the right upper lobe consistent with a inflammation/pneumonia. Consider follow-up CT. Discoid atelectasis right middle lobe and lower lobe. Right pleural thickening/scarring. No other acute abnormality. <Electronically signed by Deon Self > 01/14/21 [id number]
--- NOTE | 2021-01-14 11:43 | REPVR ---
PROCEDURE INFORMATION: Exam: CT Angiography Neck With Contrast Exam date and time: 01/14/2021 11:04 AM Age: 65 years old Clinical indication: Other: Coughing up blood; Additional info: Smoker, SOB, coughing up blood, eval for pe TECHNIQUE: Imaging protocol: Computed tomography angiography of the neck with contrast. 3D rendering (Not supervised by radiologist): MIP and/or 3D reconstructed images were created by the technologist. Radiation optimization: All CT scans at this facility use at least one of these dose optimization techniques: automated exposure control; mA and/or kV adjustment per patient size (includes targeted exams where dose is matched to clinical indication); or iterative reconstruction. Contrast material: ISOVUE 370; Contrast volume: 100 ml; Contrast route: INTRAVENOUS (IV); COMPARISON: US Duplex,carotid (complete) 04/30/2019 7:30 AM FINDINGS: Right common carotid artery: Mild narrowing at the origin of the innominate artery. Mild narrowing at the origin of the right common carotid artery with mild narrowing distally. Right internal carotid artery: There is approximately 60% narrowing of the right internal carotid artery at the origin. Moderate disease at the cavernous level. Right external carotid artery: Mild narrowing the origin of the right external carotid artery. Left common carotid artery: Mild narrowing in the proximal and distal left common carotid artery. Left internal carotid artery: There is approximately 50% narrowing of the origin of the left internal carotid artery. Moderate disease of the cavernous level. Left external carotid artery: Mild narrowing at the origin of the left external carotid artery. Right vertebral artery: [id number] narrowing of the origin of the right vertebral artery. Left vertebral artery: Moderate narrowing the origin of the left vertebral artery. Is also multifocal [id number] narrowing of the distal left vertebral artery. Right subclavian artery: Moderate narrowing the origin of the right subclavian artery. Left subclavian artery: Mild narrowing at the origin the left subclavian artery. Aorta: Atherosclerotic changes of the aortic arch. Brain: The visualized brain is within normal limits. Mastoid air cells: The mastoids are well aerated. Paranasal sinuses: The paranasal sinuses demonstrate no air-fluid levels. Thyroid: Homogeneous thyroid. Dental: Periapical lucencies adjacent to the residual mandibular teeth suggestive of dental disease. Lymph nodes: No confluent lymphadenopathy. Soft tissues: No dominant neck mass. Bones/joints: Degenerative changes along the spine without acute fracture. No lytic or blastic disease. Lungs: The included lungs demonstrate emphysematous change apical pleural thickening. Other findings: Mild narrowing the origin of the left axillary artery. IMPRESSION: 1. Moderate bilateral internal carotid artery stenosis by NASCET criteria in the neck. 2. Multiple other vascular stenoses as described. REFERENCES: NASCET CRITERIA. The degree of internal carotid artery stenosis is based on NASCET criteria. Normal is no stenosis. Mild is less than 50% stenosis. Moderate is 50-69% stenosis. Severe is 70% to 99% stenosis. Total occlusion is no detectable patent lumen. Electronically signed by: Fer Frederick On 01/14/2021 11:43:25 AM
== END ==
LOC: M RAD 10:11
PROVIDERS: ATTEND Physician Assistant
DX: R91.8 Other nonspecific abnormal finding of lung field (principal); I65.23 Occlusion and stenosis of bilateral carotid arteries; R04.2 Hemoptysis
CPT/HCPCS: 70498; 71275; Q9967

== ENCOUNTER → 2021-01-27 | Outpatient (CLI) | payer OTHER ==
[~2021-01-27] MED LIST changes: -ISOVUE-370 76% 100ML VIAL As Ordered ONE
--- NOTE | 2021-01-27 11:49 | REP ---
INDICATION: DECREASED RT DORSALIS PEDIS PULSE, HX STENTS, EVAL BILAT COMPARISON: None. TECHNIQUE: Bilateral lower extremity arterial ultrasound with Doppler FINDINGS: All numeric values represent peak systolic velocities in cm/SEC On the right: The ankle brachial index is 1.0 JACKET CHANGER: 145.6 triphasic Profunda: 256.0 triphasic SFA proximal: 217.9 biphasic SFA mid: 30.5 biphasic SFA distal: 29.2 biphasic Popliteal: 56.9 biphasic LYSSA proximal: 101.5 triphasic Tibioperoneal trunk: 71.8 triphasic GRADUATE STUDENT INSTRUCTOR proximal: 60.3 triphasic GRADUATE STUDENT INSTRUCTOR distal: 62.3 monophasic LYSSA distal: 49.4 monophasic On the left: The ankle brachial index is 1.1 JACKET CHANGER: 138.7 triphasic Profunda: 69.8 triphasic SFA proximal: 72.7 biphasic SFA mid: 98.6 biphasic SFA distal: 96.4 biphasic Popliteal: 72.9 biphasic LYSSA proximal: 74.0 biphasic Tibioperoneal trunk: 74.7 triphasic GRADUATE STUDENT INSTRUCTOR proximal: 57.3 biphasic GRADUATE STUDENT INSTRUCTOR distal: 39.4 biphasic LYSSA distal: 54.3 biphasic Moderate plaque was seen bilaterally. A stent was seen on the right from the superficial femoral artery midportion to the superficial femoral artery distally. A 1.8-1 stenosis was noted at the profunda on the right and 1.5-1 stenosis was noted in the proximal SFA. No significant stenosis or occlusion was seen on the left. IMPRESSION: As above <Electronically signed by Adi San > 01/27/21 [id number]
== END ==
LOC: M RAD 09:51
PROVIDERS: ATTEND Physician Assistant
DX: I73.9 Peripheral vascular disease, unspecified (principal)

== ENCOUNTER → 2021-02-12 | Outpatient (CLI) | payer OTHER ==
--- NOTE | 2021-02-12 10:53 | REP ---
INDICATION: PAIN. COMPARISON: CT angiogram abdomen pelvis, bone windows. TECHNIQUE: AP pelvis with two view each hip. FINDINGS: AP pelvis: There are advanced degenerative changes of the facets and disc spaces at L4-5 and L5-S1 SI joints symmetric without erosion or destructive lesion. The hip joint spaces show no significant narrowing superiorly but there is subchondral cystic change acetabular roof and prominent spurring left much greater than right femoral head rim osteophyte also noted left greater than right pelvic ring pubic rami and symphysis pubis intact. There is a wall stent in the proximal superficial femoral artery from the level of the lesser trochanter to the bottom of the field. Right hip two views show no hip joint space narrowing there is rim osteophyte in the femoral head and acetabular roof and subchondral sclerotic and cystic changes peripherally in the acetabular roof. No fracture or AVN. Vascular calcifications are noted in the pelvis and proximal thigh. Wall stents are seen in the superficial femoral artery from the level of the lesser trochanter to edge of the field in the mid femur. Left hip shows no joint space narrowing small rim osteophyte is seen slightly larger than on the right and subchondral cystic and sclerotic changes in the acetabular roof also greater than the right. Larger acetabular spurs seen on that left side. There are some vascular calcifications in the femoral artery. No fracture or AVN. IMPRESSION: Degenerative facet and hip arthritis as described. No AVN or fracture of the hips. No pelvic fracture or destructive lesion but there are subchondral cysts in both sides acetabular roof. Hip joint spaces are not narrowed. Right-sided femoral wall stent noted. <Electronically signed by Billy Eudardo > 02/12/21 [id number]
== END ==
LOC: M WUC 08:48
PROVIDERS: ATTEND Physician Assistant
DX: M16.0 Bilateral primary osteoarthritis of hip (principal); M85.68 Other cyst of bone, other site

== ENCOUNTER → 2021-02-24 | Outpatient (CLI) | payer OTHER ==
--- NOTE | 2021-02-24 15:24 | REP ---
INDICATION: LUNG NODULES COMPARISON: 01/14/2021 TECHNIQUE: Axial noncontrast images from the thoracic inlet to the upper abdomen with coronal and sagittal reformations. This CT examination was performed using the following dose reduction techniques: Automated exposure control, adjustment of mA and/or kv according to the patient's size, and use of iterative reconstruction technique. FINDINGS: Current examination demonstrates stable chronic emphysematous changes with bronchiectasis and scattered scarring (right greater than left). New small scattered nodular densities with surrounding ground-glass halo and minimal areas of spiculation are primarily identified in the right upper lobe and to a lesser extent the right base suggesting an acute inflammatory process. Differential diagnosis includes septic emboli along with metastatic disease. Associated mediastinal and hilar adenopathy noted. No significant effusion. No pneumothorax. Mediastinum demonstrates stable atherosclerotic changes to the thoracic aorta and coronary arteries. IMPRESSION: New small scattered somewhat ill-defined nodular densities primarily noted in the right upper lobe and to a lesser extent right base. Differential diagnosis includes a continued inflammatory process, septic emboli, and metastatic disease cannot be excluded. Follow-up at further investigation is required. <Electronically signed by Regino Canela > 02/24/21 [id number]
== END ==
LOC: M PLAIMG 13:12
PROVIDERS: ATTEND Physician Assistant
DX: R91.8 Other nonspecific abnormal finding of lung field (principal)

== ENCOUNTER → 2021-06-01 | Outpatient (CLI) | payer OTHER | LOC: M RAD 09:11 | PROVIDERS: ATTEND Internal Medicine Pulmonary Disease | DX: J44.9 Chronic obstructive pulmonary disease, unspecified (principal) ==

== ENCOUNTER → 2022-03-01 | Outpatient (REF) | payer OTHER ==
[2022-03-01 12:39] LABS: HEMATOCRIT 43.3 % (42.0-52.0); HEMOGLOBIN 13.2 g/dl (13.5-17.5); MEAN CORPUSCULAR HEMOGLOBIN 30.8 pg (27.0-33.0); MEAN CORPUSCULAR HGB CONC 30.5 g/dl (32.0-36.5); MEAN CORPUSCULAR VOLUME 101.2 fl (80.0-96.0); PLATELET COUNT, AUTOMATED 167 10^3/uL (150-450); RED BLOOD COUNT 4.28 10^6/uL (4.30-6.10); WHITE BLOOD COUNT 7.6 10^3/uL (4.0-10.0)
[2022-03-02 01:25] LABS: CHOLESTEROL RISK RATIO 2.58 (<5); LDL CHOLESTEROL 38.6 MG/DL (<100)
== END ==
LOC: M WUC 09:18
PROVIDERS: ATTEND Nurse Practitioner Family
DX: I48.91 Unspecified atrial fibrillation (principal); E78.49 Other hyperlipidemia

== ENCOUNTER → 2022-03-01 | Outpatient (REF) | payer OTHER ==
[2022-03-01 12:39] LABS: BASO % 0.4 % (0.0-1.0); EOS % 0.1 % (0.0-3.0); HEMATOCRIT 42.5 % (42.0-52.0); LYMPH # 2.1 10^3/uL (1.5-5.0); LYMPH % 28.4 % (24.0-44.0); MEAN CORPUSCULAR HEMOGLOBIN 30.5 pg (27.0-33.0); MEAN CORPUSCULAR HGB CONC 30.6 g/dl (32.0-36.5); MEAN CORPUSCULAR VOLUME 99.8 fl (80.0-96.0); MONO # 0.6 10^3/uL (0.0-0.8); MONO % 8.1 % (2.0-8.0); NEUTROPHILS # 4.6 10^3/uL (1.5-8.5); NEUTROPHILS % 62.7 % (36.0-66.0); PLATELET COUNT, AUTOMATED 169 10^3/uL (150-450); RED BLOOD COUNT 4.26 10^6/uL (4.30-6.10); WHITE BLOOD COUNT 7.3 10^3/uL (4.0-10.0)
[2022-03-01 14:03] LABS: HEMOGLOBIN A1c 5.2 % (4.0-6.0)
[2022-03-02 01:29] LABS: ALBUMIN 3.8 G/DL (3.2-5.2); ALT/SGPT 17 U/L (7.0-40); BILIRUBIN,TOTAL 0.9 MG/DL (0.3-1.2); BLOOD UREA NITROGEN 37 MG/DL (9-23); CALCIUM LEVEL 8.9 MG/DL (8.3-10.6); CARBON DIOXIDE LEVEL 23 MMOL/L (20-31); CHLORIDE LEVEL 103 MMOL/L (98-107); CHOLESTEROL LEVEL 88 MG/DL (<200); CREATININE FOR GFR 0.98 MG/DL (0.70-1.30); GLOMERULAR FILTRATION RATE > 60.0 (>49); GLUCOSE, FASTING 130 MG/DL (74-106); HDL CHOLESTEROL 33.8 MG/DL (>40); LDL CHOLESTEROL 38.6 MG/DL (<100); NON-HDL-C 54 MG/DL; POTASSIUM SERUM 4.1 MMOL/L (3.5-5.1); SODIUM LEVEL 140 MMOL/L (136-145); TOTAL 25(OH) VITAMIN D 32.1 NG/ML (20.0-100.0); TOTAL PROTEIN 6.9 G/DL (5.7-8.2); TRIGLYCERIDES LEVEL 78 MG/DL (<150)
== END ==
LOC: M WUC 09:15
PROVIDERS: ATTEND Physician Assistant
DX: E78.00 Pure hypercholesterolemia, unspecified (principal); E55.9 Vitamin D deficiency, unspecified; R73.03 Prediabetes

== ENCOUNTER 2022-03-07 11:09 | Inpatient (IN) | payer MEDICARE, OTHER ==
[~2022-03-07] VITALS: Ht 170.2 cm; Wt 83.6 kg
[~2022-03-07 11:09] MED LIST changes: -METO1TAB7; +METO1TAB7 PO
[2022-03-07] MEDS: METOPROLOL 5 MG/5 ML VIAL IV SCH ×3 (12:12→12:54)
[2022-03-07 12:14] LABS: BASO % 0.4 % (0.0-1.0); EOS % 0.1 % (0.0-3.0); HEMATOCRIT 40.7 % (42.0-52.0); HEMOGLOBIN 12.8 g/dl (13.5-17.5); LYMPH % 24.5 % (24.0-44.0); MEAN CORPUSCULAR HEMOGLOBIN 30.5 pg (27.0-33.0); MEAN CORPUSCULAR HGB CONC 31.4 g/dl (32.0-36.5); MEAN CORPUSCULAR VOLUME 97.1 fl (80.0-96.0); MONO # 0.6 10^3/uL (0.0-0.8); MONO % 6.8 % (2.0-8.0); NEUTROPHILS # 5.5 10^3/uL (1.5-8.5); NEUTROPHILS % 67.8 % (36.0-66.0); PLATELET COUNT, AUTOMATED 161 10^3/uL (150-450); RED BLOOD COUNT 4.19 10^6/uL (4.30-6.10); WHITE BLOOD COUNT 8.1 10^3/uL (4.0-10.0)
[2022-03-07 12:33] LABS: INR 1.58; PROTHROMBIN TIME 19.2 SECONDS (12.5-14.5)
[2022-03-07 12:34] LABS: PARTIAL THROMBOPLASTIN TIME 35.1 SECONDS (24.8-34.2)
[2022-03-07 12:45] LABS: CHLORIDE LEVEL 103 MMOL/L (98-107); SODIUM LEVEL 140 MMOL/L (136-145)
[2022-03-07 12:46] LABS: ALBUMIN 3.7 G/DL (3.2-5.2); CARBON DIOXIDE LEVEL 24 MMOL/L (20-31)
[2022-03-07 12:51] LABS: CALCIUM LEVEL 8.7 MG/DL (8.3-10.6); GLUCOSE, FASTING 103 MG/DL (74-106)
[2022-03-07 12:52] LABS: ALKALINE PHOSPHATASE 106 U/L (46-116); GLOMERULAR FILTRATION RATE > 60.0 (>49)
[2022-03-07] MEDS ORDERED: AMIODARONE HCL 150 MG in IV 1 EA IV STA (12:52)
[2022-03-07 12:53] LABS: AST/SGOT 58 U/L (<34); BILIRUBIN,DIRECT 0.4 MG/DL (<0.4); BILIRUBIN,TOTAL 1.1 MG/DL (0.3-1.2)
[2022-03-07] MEDS ORDERED: METOPROLOL SUCC *XL* 25MG TAB (TopROL *XL*) PO ONE (12:55)
[2022-03-07 13:19] LABS: ALT/SGPT 32 U/L (7.0-40); BLOOD UREA NITROGEN 28 MG/DL (9-23); CK-MB VALUE MASS 2.3 NG/ML (<3.6); CPK CREATINE PHOSPHOKINASE 147 U/L (46-171); LIPASE 29 U/L (12-53); MB/CK RELATIVE INDEX 1.56 (< OR =4); POTASSIUM SERUM 5.2 MMOL/L (3.5-5.1)
[2022-03-07] MEDS ORDERED: AMIODARONE HCL 360 MG in IV 1 EA IV SCH ×2 (13:55→14:20)
[2022-03-07] MEDS ORDERED: AMLO1TAB24 PO (14:25)
[2022-03-07] MEDS ORDERED: ALBU8.5H INH (14:25)
[2022-03-07] MEDS ORDERED: NICO14DI6 TD (14:25)
[2022-03-07] MEDS ORDERED: INCR1INH INH (14:25)
[2022-03-07] MEDS ORDERED: ATOR80TA59 PO (14:25)
[2022-03-07] MEDS ORDERED: [UNRECOGNIZED DRUG - CODE] PO (14:25)
[2022-03-07] MEDS ORDERED: LOSA50TA28 PO (14:25)
[2022-03-07] MEDS ORDERED: ASPI81TA26 PO (14:26)
[2022-03-07] MEDS ORDERED: ELIQ5TAB PO (14:26)
[2022-03-07 14:29] LABS: CK-MB VALUE MASS 2.1 NG/ML (<3.6); MB/CK RELATIVE INDEX 1.44 (< OR =4)
[2022-03-07] MEDS ORDERED: HOME MED LIST COMPLETE! XX SCH (14:30)
[2022-03-07 14:31] LABS: RSV AMPLIFICATION NEGATIVE (NEGATIVE)
[2022-03-07] MEDS ORDERED: ISOVUE-370 76% 100ML VIAL As Ordered ONE (14:44)
[2022-03-07] MEDS ORDERED: CALCIUM GLUCONATE 1,000 MG in D5W MINI-BAG PLUS 100 ML IV ONE (18:00)
[2022-03-07 18:38] VITALS: BP 108/58
[2022-03-07 19:30] VITALS: BP 103/68
[2022-03-07] MEDS: ATORVASTATIN 20 MG TAB PO SCH (19:55)
[2022-03-07] MEDS: APIXABAN 5 MG TAB (ELIQUIS) PO SCH (19:55)
[2022-03-07] MEDS: AMIODARONE HCL 360 MG in IV 1 EA IV SCH (20:35)
[2022-03-07] MEDS: FUROSEMIDE injection 250 MG in D5W 225 ML IV SCH (20:35)
[2022-03-08] VITALS: BP 116/72
[2022-03-08 04:00] VITALS: BP 112/70
[2022-03-08 05:55] LABS: HEMATOCRIT 38.5 % (42.0-52.0); HEMOGLOBIN 12.3 g/dl (13.5-17.5); MEAN CORPUSCULAR HEMOGLOBIN 30.6 pg (27.0-33.0); MEAN CORPUSCULAR HGB CONC 31.9 g/dl (32.0-36.5); MEAN CORPUSCULAR VOLUME 95.8 fl (80.0-96.0); PLATELET COUNT, AUTOMATED 152 10^3/uL (150-450); RED BLOOD COUNT 4.02 10^6/uL (4.30-6.10); WHITE BLOOD COUNT 7.1 10^3/uL (4.0-10.0)
[2022-03-08 06:20] LABS: CARBON DIOXIDE LEVEL 25 MMOL/L (20-31); CHLORIDE LEVEL 101 MMOL/L (98-107); POTASSIUM SERUM 4.4 MMOL/L (3.5-5.1); SODIUM LEVEL 137 MMOL/L (136-145)
[2022-03-08 06:26] LABS: BLOOD UREA NITROGEN 20 MG/DL (9-23); CALCIUM LEVEL 8.5 MG/DL (8.3-10.6); GLUCOSE, FASTING 106 MG/DL (74-106); MAGNESIUM LEVEL 1.7 MG/DL (1.8-2.4)
[2022-03-08 06:28] LABS: CREATININE FOR GFR 1.15 MG/DL (0.70-1.30); GLOMERULAR FILTRATION RATE > 60.0 (>49)
[2022-03-08] MEDS ORDERED: MAGNESIUM OXIDE 400MG TAB (MAG-OX) PO ONE (07:00)
[2022-03-08 07:17] VITALS: BP 112/57
[2022-03-08] MEDS: NICOTINE 14 MG/24 HR TRANSDERMAL TD PRN (08:13)
[2022-03-08] MEDS: ASPIRIN 81MG ENTERIC TABLET PO SCH (08:13)
[2022-03-08] MEDS: ATORVASTATIN 20 MG TAB PO SCH (08:13)
[2022-03-08] MEDS: APIXABAN 5 MG TAB (ELIQUIS) PO SCH ×2 (08:13→20:46)
[2022-03-08] MEDS: AMIODARONE HCL 360 MG in IV 1 EA IV SCH (08:13)
[2022-03-08] MEDS ORDERED: INCRUSE ELLIPTA (PATIENT'S OWN MED) INH SCH (09:00)
[2022-03-08 11:23] VITALS: BP 100/59
[2022-03-08] MEDS ORDERED: methylPREDNISolone 125MG 2ML VIAL IV ONE (14:10)
[2022-03-08] MEDS: METOPROLOL TART 25 MG TABLET PO SCH ×3 (15:02→23:42)
[2022-03-08 16:00] VITALS: BP 108/61
[2022-03-08] MEDS: IPRATROPIUM 0.5MG/ALBUTEROL 2.5MG INH SOL UD 3ML (DUONEB) NEB SCH ×2 (17:53→20:31)
[2022-03-08] MEDS: FUROSEMIDE injection 250 MG in D5W 225 ML IV SCH (19:00)
[2022-03-08 20:37] VITALS: BP 95/60
[2022-03-08] MEDS ORDERED: DIGOXIN INJ 0.5 MG/2 ML AMP IV ONE (21:30)
[2022-03-08] MEDS ORDERED: FUROSEMIDE injection 250 MG in D5W 225 ML IV SCH (23:00)
[2022-03-09] VITALS (9 sets, daily range): BP systolic 97–123; BP diastolic 51–76; O2SAT 93–94
[2022-03-09] MEDS: IPRATROPIUM 0.5MG/ALBUTEROL 2.5MG INH SOL UD 3ML (DUONEB) NEB SCH ×7 (04:00→23:52)
[2022-03-09 05:14] LABS: HEMATOCRIT 38.8 % (42.0-52.0); HEMOGLOBIN 12.7 g/dl (13.5-17.5); MEAN CORPUSCULAR HGB CONC 32.7 g/dl (32.0-36.5); MEAN CORPUSCULAR VOLUME 94.6 fl (80.0-96.0); PLATELET COUNT, AUTOMATED 153 10^3/uL (150-450); WHITE BLOOD COUNT 7.5 10^3/uL (4.0-10.0)
[2022-03-09] MEDS: METOPROLOL TART 25 MG TABLET PO SCH ×3 (05:20→18:00)
[2022-03-09 05:32] LABS: CHLORIDE LEVEL 97 MMOL/L (98-107); SODIUM LEVEL 138 MMOL/L (136-145)
[2022-03-09 05:33] LABS: CARBON DIOXIDE LEVEL 33 MMOL/L (20-31)
[2022-03-09 05:38] LABS: BLOOD UREA NITROGEN 24 MG/DL (9-23)
[2022-03-09 05:39] LABS: CALCIUM LEVEL 8.3 MG/DL (8.3-10.6); GLUCOSE, FASTING 100 MG/DL (74-106); MAGNESIUM LEVEL 1.5 MG/DL (1.8-2.4)
[2022-03-09 05:40] LABS: PHOSPHORUS LEVEL 4.2 MG/DL (2.4-5.1)
[2022-03-09 05:41] LABS: CREATININE FOR GFR 1.27 MG/DL (0.70-1.30); GLOMERULAR FILTRATION RATE > 60.0 (>49)
[2022-03-09 05:44] LABS: POTASSIUM SERUM 3.5 MMOL/L (3.5-5.1)
[2022-03-09] MEDS ORDERED: POTASSIUM CHLORIDE 10MEQ SR TABLET PO ONE ×2 (06:00→15:10)
[2022-03-09] MEDS: MAG SULF 1GM/100ML (MAG RUN) 1 GM in IV 1 EA IV SCH ×2 (06:19→09:20)
[2022-03-09] MEDS ORDERED: FUROSEMIDE 40 MG TAB PO SCH ×2 (09:00)
[2022-03-09] MEDS: ATORVASTATIN 20 MG TAB PO SCH (09:20)
[2022-03-09] MEDS: APIXABAN 5 MG TAB (ELIQUIS) PO SCH ×2 (09:20→20:12)
[2022-03-09] MEDS: ASPIRIN 81MG ENTERIC TABLET PO SCH (09:20)
[2022-03-09] MEDS: NICOTINE 14 MG/24 HR TRANSDERMAL TD PRN (09:30)
[2022-03-09 10:18] LABS: LDH LACTATE DEHYDROGENASE 169 U/L (120-246)
[2022-03-09] MEDS ORDERED: DIGOXIN INJ 0.5 MG/2 ML AMP IV ONE (10:40)
[2022-03-09] MEDS: predniSONE 10 MG TAB PO SCH (11:39)
[2022-03-09] MEDS: AMIODARONE 200 MG TAB (PACERONE) PO SCH ×2 (11:40→20:12)
[2022-03-09] MEDS: LOSARTAN 25 MG TAB PO SCH (11:41)
[2022-03-10] VITALS: BP 96/63
[2022-03-10] MEDS: IPRATROPIUM 0.5MG/ALBUTEROL 2.5MG INH SOL UD 3ML (DUONEB) NEB SCH ×3 (03:32→11:27)
[2022-03-10 04:00] VITALS: BP 110/60
[2022-03-10] MEDS: METOPROLOL TART 25 MG TABLET PO SCH ×3 (05:05→12:00)
[2022-03-10 05:35] LABS: HEMATOCRIT 37.5 % (42.0-52.0); HEMOGLOBIN 12.2 g/dl (13.5-17.5); MEAN CORPUSCULAR HEMOGLOBIN 30.5 pg (27.0-33.0); MEAN CORPUSCULAR HGB CONC 32.5 g/dl (32.0-36.5); MEAN CORPUSCULAR VOLUME 93.8 fl (80.0-96.0); PLATELET COUNT, AUTOMATED 152 10^3/uL (150-450); WHITE BLOOD COUNT 11.1 10^3/uL (4.0-10.0)
[2022-03-10 06:00] LABS: MAGNESIUM LEVEL 2.1 MG/DL (1.8-2.4)
[2022-03-10 06:02] LABS: BLOOD UREA NITROGEN 28 MG/DL (9-23); CALCIUM LEVEL 8.6 MG/DL (8.3-10.6); CARBON DIOXIDE LEVEL 31 MMOL/L (20-31); CHLORIDE LEVEL 97 MMOL/L (98-107); CREATININE FOR GFR 1.12 MG/DL (0.70-1.30); GLOMERULAR FILTRATION RATE > 60.0 (>49); GLUCOSE, FASTING 136 MG/DL (74-106); POTASSIUM SERUM 4.2 MMOL/L (3.5-5.1); SODIUM LEVEL 137 MMOL/L (136-145)
[2022-03-10 08:00] VITALS: BP 112/56
[2022-03-10] MEDS: AMIODARONE 200 MG TAB (PACERONE) PO SCH (08:42)
[2022-03-10] MEDS: APIXABAN 5 MG TAB (ELIQUIS) PO SCH (08:42)
[2022-03-10] MEDS: LOSARTAN 25 MG TAB PO SCH (08:43)
[2022-03-10] MEDS: ASPIRIN 81MG ENTERIC TABLET PO SCH (08:43)
[2022-03-10] MEDS: predniSONE 10 MG TAB PO SCH (08:43)
[2022-03-10] MEDS: ATORVASTATIN 20 MG TAB PO SCH (08:43)
[2022-03-10] MEDS ORDERED: COZA1TAB PO (11:01)
[2022-03-10] MEDS ORDERED: PRED10TA2 PO (11:01)
[2022-03-10] MEDS ORDERED: AMIO200T49 PO (11:01)
[2022-03-10] MEDS ORDERED: BUDE10.2 IH (11:01)
[2022-03-10] MEDS ORDERED: METO1TAB87 PO (11:01)
[2022-03-10] MEDS ORDERED: FURO40TA2 PO (11:01)
[2022-03-10 12:00] VITALS: BP_SYST 103; BP_SYST 104; BP_DIAS 51
== END 2022-03-10 13:23 | disposition home health service (06) | DRG 291 ==
LOC: M ED 11:09 → M ED INP 14:01 → ENRESERV 17:05 → M PCU 18:34
PROVIDERS: ADMIT General Practice; ATTEND Internal Medicine
DX: I11.0 Hypertensive heart disease with heart failure (principal); I50.23 Acute on chronic systolic (congestive) heart failure; I48.19 Other persistent atrial fibrillation; J90 Pleural effusion, not elsewhere classified; I48.92 Unspecified atrial flutter; I73.9 Peripheral vascular disease, unspecified; J44.9 Chronic obstructive pulmonary disease, unspecified; F17.200 Nicotine dependence, unspecified, uncomplicated; F10.10 Alcohol abuse, uncomplicated; I08.0 Rheumatic disorders of both mitral and aortic valves; I27.20 Pulmonary hypertension, unspecified; Z91.119 Patient's noncompliance with dietary regimen due to unspecified reason; Z86.711 Personal history of pulmonary embolism; D72.829 Elevated white blood cell count, unspecified; Z79.899 Other long term (current) drug therapy; Z79.82 Long term (current) use of aspirin; Z79.01 Long term (current) use of anticoagulants; K57.30 Diverticulosis of large intestine without perforation or abscess without bleeding

== ENCOUNTER → 2022-03-18 | Outpatient (CLI) | payer MEDICARE ==
[~2022-03-18] MED LIST changes: +AMIO200T49 PO; +AMLO1TAB24 PO; +ASPI81TA26 PO; +ATOR80TA59 PO; +BUDE10.2 IH; +COZA1TAB PO; +ELIQ5TAB PO; +FURO40TA2 PO; +INCR1INH INH; +LOSA50TA28 PO; +METO1TAB87 PO; +NICO14DI6 TD; +PRED10TA2 PO; +[UNRECOGNIZED DRUG - CODE] PO
[2022-03-18 18:05] LABS: ALBUMIN 3.4 G/DL (3.2-5.2); ALKALINE PHOSPHATASE 85 U/L (46-116); ALT/SGPT 84 U/L (7.0-40); AST/SGOT 32 U/L (<34); BILIRUBIN,TOTAL 1.1 MG/DL (0.3-1.2); BLOOD UREA NITROGEN 30 MG/DL (9-23); CALCIUM LEVEL 8.9 MG/DL (8.3-10.6); CARBON DIOXIDE LEVEL 29 MMOL/L (20-31); CHLORIDE LEVEL 102 MMOL/L (98-107); CHOLESTEROL LEVEL 106 MG/DL (<200); CHOLESTEROL RISK RATIO 2.28 (<5); CREATININE FOR GFR 0.99 MG/DL (0.70-1.30); GLOMERULAR FILTRATION RATE > 60.0 (>49); GLUCOSE, FASTING 98 MG/DL (74-106); HDL CHOLESTEROL 46.3 MG/DL (>40); LDL CHOLESTEROL 45.1 MG/DL (<100); NON-HDL-C 60 MG/DL; POTASSIUM SERUM 5.1 MMOL/L (3.5-5.1); SODIUM LEVEL 137 MMOL/L (136-145); TOTAL PROTEIN 6.4 G/DL (5.7-8.2); TRIGLYCERIDES LEVEL 73 MG/DL (<150)
[2022-03-18 18:06] LABS: THYROID STIMULATING HORMONE 4.238 uIU/ML (0.55-4.78)
== END ==
LOC: M WUC 13:01
PROVIDERS: ATTEND Physician Assistant
DX: I48.91 Unspecified atrial fibrillation (principal); Z79.899 Other long term (current) drug therapy

== ENCOUNTER → 2022-05-09 | Outpatient (CLI) | payer MEDICARE ==
[~2022-05-09] MED LIST changes: +ACET325C5 PO; +AMIO200T37 PO; +SYMB16INH
== END ==
LOC: M LABSMTC 09:31
PROVIDERS: ATTEND Anesthesiology
DX: Z01.812 Encounter for preprocedural laboratory examination (principal); Z11.52 Encounter for screening for COVID-19

== ENCOUNTER 2022-05-11 06:09 | Day surgery (SDC) | payer MEDICARE ==
[~2022-05-11] VITALS: Ht 170.2 cm; Wt 83.5 kg
[2022-05-11] MEDS ORDERED: LR 1,000 ML IV SCH (06:25)
[2022-05-11] MEDS ORDERED: NICO14DI6 (06:30)
[2022-05-11] MEDS ORDERED: [UNRECOGNIZED DRUG - CODE] (06:30)
[2022-05-11] MEDS ORDERED: propofoL 200 MG/20 ML VIAL As Ordered ONE (07:11)
[2022-05-11] MEDS ORDERED: LIDOCAINE 2% 100MG/5ML SDV (FOR ANES.) As Ordered ONE (07:12)
[2022-05-11 08:34] VITALS: BP 143/67
== END 2022-05-11 13:30 | disposition home or self-care (01) ==
LOC: M SDC 06:09
PROVIDERS: ATTEND Internal Medicine Cardiovascular Disease
DX: I48.91 Unspecified atrial fibrillation (principal); I42.9 Cardiomyopathy, unspecified; I10 Essential (primary) hypertension; I73.9 Peripheral vascular disease, unspecified; Z79.899 Other long term (current) drug therapy

== ENCOUNTER → 2022-09-16 | Outpatient (CLI) | payer MEDICARE ==
[~2022-09-16] MED LIST changes: +NICO14DI6; +[UNRECOGNIZED DRUG - CODE]
[2022-09-16 11:29] LABS: BASO # 0.1 10^3/uL (0.0-0.2); BASO % 0.6 % (0.0-1.0); EOS # 0.1 10^3/uL (0.0-0.5); EOS % 1.2 % (0.0-3.0); HEMATOCRIT 48.3 % (42.0-52.0); HEMOGLOBIN 15.4 g/dl (13.5-17.5); LYMPH # 2.7 10^3/uL (1.5-5.0); LYMPH % 32.4 % (24.0-44.0); MEAN CORPUSCULAR HEMOGLOBIN 31.1 pg (27.0-33.0); MEAN CORPUSCULAR HGB CONC 31.9 g/dl (32.0-36.5); MEAN CORPUSCULAR VOLUME 97.6 fl (80.0-96.0); MONO # 0.7 10^3/uL (0.0-0.8); MONO % 8.2 % (2.0-8.0); NEUTROPHILS # 4.7 10^3/uL (1.5-8.5); NEUTROPHILS % 57.2 % (36.0-66.0); PLATELET COUNT, AUTOMATED 172 10^3/uL (150-450); RED BLOOD COUNT 4.95 10^6/uL (4.30-6.10); WHITE BLOOD COUNT 8.2 10^3/uL (4.0-10.0)
[2022-09-16 11:50] LABS: HEMOGLOBIN A1c 5.4 % (4.0-6.0)
[2022-09-16 11:51] LABS: ALBUMIN 3.8 G/DL (3.2-5.2); ALKALINE PHOSPHATASE 90 U/L (46-116); ALT/SGPT 51 U/L (7.0-40); AST/SGOT 40 U/L (<34); BILIRUBIN,TOTAL 0.5 MG/DL (0.3-1.2); BLOOD UREA NITROGEN 29 MG/DL (9-23); CALCIUM LEVEL 8.6 MG/DL (8.3-10.6); CARBON DIOXIDE LEVEL 29 MMOL/L (20-31); CHLORIDE LEVEL 104 MMOL/L (98-107); CHOLESTEROL LEVEL 120 MG/DL (<200); CHOLESTEROL RISK RATIO 2.45 (<5); CREATININE FOR GFR 1.14 MG/DL (0.70-1.30); GLOMERULAR FILTRATION RATE > 60.0 (>49); GLUCOSE, FASTING 89 MG/DL (74-106); HDL CHOLESTEROL 48.8 MG/DL (>40); LDL CHOLESTEROL 57.4 MG/DL (<100); NON-HDL-C 71.2 MG/DL; SODIUM LEVEL 139 MMOL/L (136-145); TOTAL PROTEIN 6.7 G/DL (5.7-8.2); TRIGLYCERIDES LEVEL 69 MG/DL (<150)
[2022-09-16 11:55] LABS: THYROID STIMULATING HORMONE 4.072 uIU/ML (0.55-4.78)
[2022-09-16 11:56] LABS: TOTAL 25(OH) VITAMIN D 23.7 NG/ML (20.0-100.0)
[2022-09-16 11:57] LABS: FREE T4 1.48 NG/DL (0.89-1.76)
== END ==
LOC: M WUC 08:13
PROVIDERS: ATTEND Physician Assistant
DX: E78.00 Pure hypercholesterolemia, unspecified (principal); I42.9 Cardiomyopathy, unspecified; E55.9 Vitamin D deficiency, unspecified; Z12.5 Encounter for screening for malignant neoplasm of prostate
CPT/HCPCS: 36415; 80053; 80061; 82306; 83036; 84439; 84443; 85025; G0103

== ENCOUNTER → 2022-09-19 | Outpatient (CLI) | payer MEDICARE | LOC: M RAD 07:39 | PROVIDERS: ATTEND Internal Medicine Pulmonary Disease | DX: Z12.2 Encounter for screening for malignant neoplasm of respiratory organs (principal); F17.218 Nicotine dependence, cigarettes, with other nicotine-induced disorders ==

== ENCOUNTER → 2023-11-22 | Outpatient (CLI) | payer MEDICARE, OTHER ==
[~2023-11-22] MED LIST changes: -COZA1TAB PO; +LOSA-527 PO
== END ==
LOC: M RAD 09:13
PROVIDERS: ATTEND Internal Medicine Pulmonary Disease
DX: Z12.2 Encounter for screening for malignant neoplasm of respiratory organs (principal); F17.218 Nicotine dependence, cigarettes, with other nicotine-induced disorders

== ENCOUNTER → 2023-12-28 | Outpatient (CLI) | payer MEDICARE, OTHER ==
[2023-12-28 14:43] LABS: BASO % 0.5 % (0.0-1.0); EOS # 0.1 10^3/uL (0.0-0.5); EOS % 0.8 % (0.0-3.0); HEMATOCRIT 46.4 % (42.0-52.0); HEMOGLOBIN 15.1 g/dl (13.5-17.5); LYMPH # 2.2 10^3/uL (1.5-5.0); LYMPH % 25.4 % (24.0-44.0); MEAN CORPUSCULAR HEMOGLOBIN 31.6 pg (27.0-33.0); MEAN CORPUSCULAR HGB CONC 32.5 g/dl (32.0-36.5); MEAN CORPUSCULAR VOLUME 97.1 fl (80.0-96.0); MONO # 0.7 10^3/uL (0.0-0.8); MONO % 7.7 % (2.0-8.0); NEUTROPHILS # 5.5 10^3/uL (1.5-8.5); NEUTROPHILS % 65.2 % (36.0-66.0); PLATELET COUNT, AUTOMATED 126 10^3/uL (150-450); RED BLOOD COUNT 4.78 10^6/uL (4.30-6.10); WHITE BLOOD COUNT 8.5 10^3/uL (4.0-10.0)
[2023-12-28 15:02] LABS: ALBUMIN 3.5 G/DL (3.2-5.2); BILIRUBIN,TOTAL 0.7 MG/DL (0.3-1.2); CALCIUM LEVEL 8.8 MG/DL (8.3-10.6); CHOLESTEROL RISK RATIO 2.43 (<5); CREATININE FOR GFR 1.3 MG/DL (0.70-1.30); GLOMERULAR FILTRATION RATE 58.6 (>49); HDL CHOLESTEROL 50.1 MG/DL (>40); LDL CHOLESTEROL 58.5 MG/DL (<100); NON-HDL-C 71.9 MG/DL; PSA SCREENING 4.83 NG/ML (< 4.00); TOTAL PROTEIN 6.4 G/DL (5.7-8.2)
[2023-12-28 15:03] LABS: THYROID STIMULATING HORMONE 2.401 uIU/ML (0.55-4.78)
[2023-12-28 15:04] LABS: FREE T4 1.71 NG/DL (0.89-1.76)
[2023-12-28 15:11] LABS: HEMOGLOBIN A1c 5.4 % (4.0-6.0)
== END ==
LOC: M WUC 09:52
PROVIDERS: ATTEND Physician Assistant
DX: R73.03 Prediabetes (principal); I48.20 Chronic atrial fibrillation, unspecified; I10 Essential (primary) hypertension; I42.9 Cardiomyopathy, unspecified; Z79.899 Other long term (current) drug therapy; Z12.5 Encounter for screening for malignant neoplasm of prostate; I50.9 Heart failure, unspecified
CPT/HCPCS: 36415; 80053; 80061; 83036; 83880; 84439; 84443; 84484; 85025; G0103

== ENCOUNTER → 2024-02-22 | Outpatient (CLI) | payer MEDICARE | LOC: M RAD 14:07 | PROVIDERS: ATTEND Internal Medicine Pulmonary Disease | DX: R91.8 Other nonspecific abnormal finding of lung field (principal); R91.1 Solitary pulmonary nodule ==

== ENCOUNTER → 2024-07-26 | Outpatient (CLI) | payer MEDICARE ==
[2024-07-26 13:38] LABS: BASO % 0.3 % (0.0-1.0); EOS # 0.1 10^3/uL (0.0-0.5); EOS % 1.3 % (0.0-3.0); HEMATOCRIT 44.8 % (42.0-52.0); HEMOGLOBIN 14.6 g/dl (13.5-17.5); LYMPH # 2.1 10^3/uL (1.5-5.0); LYMPH % 22.1 % (24.0-44.0); MEAN CORPUSCULAR HGB CONC 32.6 g/dl (32.0-36.5); MEAN CORPUSCULAR VOLUME 98.2 fl (80.0-96.0); MONO # 0.9 10^3/uL (0.0-0.8); MONO % 9.7 % (2.0-8.0); NEUTROPHILS # 6.2 10^3/uL (1.5-8.5); NEUTROPHILS % 65.5 % (36.0-66.0); PLATELET COUNT, AUTOMATED 143 10^3/uL (150-450); RED BLOOD COUNT 4.56 10^6/uL (4.30-6.10); WHITE BLOOD COUNT 9.4 10^3/uL (4.0-10.0)
[2024-07-26 14:06] LABS: THYROID STIMULATING HORMONE 2.838 uIU/ML (0.55-4.78)
[2024-07-26 14:07] LABS: FREE T4 1.57 NG/DL (0.89-1.76)
[2024-07-26 14:08] LABS: TOTAL 25(OH) VITAMIN D 39.8 NG/ML (20.0-100.0)
[2024-07-26 14:12] LABS: ALBUMIN 3.6 G/DL (3.2-5.2); BILIRUBIN,TOTAL 0.8 MG/DL (0.3-1.2); CHOLESTEROL RISK RATIO 2.43 (<5); CREATININE FOR GFR 1.37 MG/DL (0.70-1.30); GLOMERULAR FILTRATION RATE 56.5 (>49); HDL CHOLESTEROL 43.2 MG/DL (>40); LDL CHOLESTEROL 49.2 MG/DL (<100); NON-HDL-C 61.8 MG/DL; POTASSIUM SERUM 4.5 MMOL/L (3.5-5.1); TOTAL PROTEIN 6.6 G/DL (5.7-8.2)
== END ==
LOC: M WUC 09:36
PROVIDERS: ATTEND Physician Assistant
DX: R73.03 Prediabetes (principal); R97.20 Elevated prostate specific antigen [PSA]; E55.9 Vitamin D deficiency, unspecified; I48.20 Chronic atrial fibrillation, unspecified; Z79.899 Other long term (current) drug therapy